=== PATIENT | female | born 1940 | race Caucasian/White ===

== ENCOUNTER 2019-05-20 13:40 | Inpatient (IN) | payer MEDICARE ==
[~2019-05-20] VITALS: Ht 167.6 cm; Wt 70.3 kg
--- NOTE | 2019-05-20 17:12 | NUR ---
PT ARRIVED TO FLOOR VIA STRETCHER. PT IS DROWSY. TRANSFERED TO BED WITH 4PA AND SLIDE SHEET. PT WITH URINE SMELL. PT THE [place]. 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 PT DISORIENTED T SITUATION. FOLET IN PLACE WITH YELLOW URINE. VITALS TAKEN AND STABLE. 3PA FOR BED BATH PROVIDED WITH CLEAN GOWN AND SHEETS. ORAL CARE PROVIDED. ASSESSMENT COMPLETED. LUNGS CLEAR. TELE # 5 PLACED. GCS OF 13. SISTER AT BEDSIDE. DR ELE TO ROOM TO ASSESS RIGHT KNEE. ORIENTED TO ROOM AND PLAN OF CARE. CALL LIGHT IN REACH. WATER AND BED SIDE SWALLOW EVAL COMPLETED. DENIES FURTHER NEEDS.
[2019-05-20] MEDS ORDERED: ADVIL100 MG (17:54)
--- NOTE | 2019-05-20 19:15 | NUR ---
RECEIVED REPORT FROM ELSY CLIFTON. pt RESTING IN BED WITH SISTER AT BEDSIDE. WHITEBOARD UPDATED. pt THOUGHT SHE NEEDED TO HAVE A BM. PATHOLOGY SECRETARY/TRANSCRIPTIONIST NOTIFIED. CALL LIGHT WITHIN REACH.
--- NOTE | 2019-05-20 20:11 | NUR ---
PT'S IV PUMP WAS BEEPING. SHE HAS VISITORS IN THE ROOM ASSISTING HER WITH EATING CHICKEN NOODLE SOUP. THEY REQUESTED OJ FOR HER, AND DENY FURTHER NEEDS AT THIS TIME. CALL LIGHT IS WITHIN REACH.
--- NOTE | 2019-05-20 22:00 | NUR ---
ASSESSMENT DONE. pt REPOSITIONED. SPEECH GARBLED AT TIMES. LIGHTS OFF FOR COMFORT. CALL LIGHT WITHIN REACH. CURTAIN OPEN TO NURSES STATION.
--- NOTE | 2019-05-21 00:09 | NUR ---
ROUNDED ON pt. RESTING WITH EYES CLOSED, RESPIRATIONS REGULAR AND UNLABORED. CALL LIGHT WITHIN REACH. CURTAIN OPEN TO NURSES STATION.
--- NOTE | 2019-05-21 02:00 | NUR ---
pt RESTING WITH EYES CLOSED. VITALS AND I&O RECORDED. ASSESSMENT DONE. pt STATED "YES" WHEN ASKED IF SHE HAD PAIN BUT WAS NOT ABLE TO INDICATE WHERE OR GIVE A NUMERIC NUMBER. ASKED FOR WATER, UNABLE TO DRINK FROM STRAW. TREMULOUS, WAS ABLE TO DRINK FROM EDGE OF CUP. REPOSITIONED, WINCED WHEN REPOSITIONING. CALL LIGHT WITHIN REACH. CURTAIN OPEN TO NURSES STATION.
--- NOTE | 2019-05-21 04:00 | NUR ---
ROUNDED ON pt. RESTING WITH EYES CLOSED, RESPIRATIONS REGULAR AND UNLABORED. CALL LIGHT WITHIN REACH. CURTAIN OPEN TO NURSES STATION.
--- NOTE | 2019-05-21 06:17 | NUR ---
pt RESTED MOST OF SHIFT. SOARES. USES CAN AT BASELINE, DID NOT GET OUT OF BED. TELE 5 SR, HR=70S. TOLERATED SOUP AND SANDWICH. GARBLED SPEECH. IVF INFUSING. HAS NOT USED CALL LIGHT.
--- NOTE | 2019-05-21 07:20 | NUR ---
REPORT RECEIVED FROM ELSY TOMLINSON. PT RESTING ON LEFT SIDE WITH EYES CLOSED, RESPIRATIONS EVEN AND UNLABORED. BED RAILS UP. CALL LIGHT WITHIN REACH. PT EASILY VIEWIED FROM NURSES STATION.
--- NOTE | 2019-05-21 07:50 | NUR ---
PATIENT RESTING IN BED. RN IN ROOM. PATIENT HANDS AND FACE CLEANED. PATIENT'S BREAKFAST ORDERED. CALL LIGHT WITHIN REACH. NO OTHER NEEDS AT THIS TIME
--- NOTE | 2019-05-21 07:57 | NUR ---
MORNIGN ASSESSMENT AND MEDICATIONS DUE. PT AWAKENS TO VOICE AND LIGHT TOUCH. PT DENIES PAIN AND NAUSEA BUT HAS DIFFICULTY ANSWERING QUESTIONS. GARBLED SPEACH NOTED. FLACC SCORE OF 0. TONGUE DRIFT NOTED TO RIGHT SIDE. LEFT SIDE WEAKER THAN RIGHT SIDE. WOUND TO RIGHT KNEE ASSESSED, 5CM X 5CM BLACKENED AREA NOTED WITH REDNESS EXTENDING 2CM IN PROXIMAL DIRECATION. YELLOW AND RED DRAINAGE NOTED THROUGH NON ADHEANT GAUZE. STRONG ODOR NOTED. NEW GAUZE APPLIED. PT SENSITIVE TO MOVEMENT OF LEG. CONTRACTURES TO BOTH UPPER EXTREMITIES NOTED. PT ORIENTED ONLY TO SELF, FOLLOWING DIRECTIONS, AND SURROUNDINGS. BREAKFAST ORDERED. MORNING CARE DONE BY JEWEL BARGER. PT REPOSITIONED TO BACK WITH HIPS FLOATED. BED RAILS UP. BED ALARM ON. PT EASILY VIEWED FROM NURSES STATION.
--- NOTE | 2019-05-21 09:36 | NUR ---
THIS RN TO ROOM TO CHECK ON PT. PT RESTING IN BED. DENIES PAIN AND NAUSEA. PT REPOSITIONED. TO LEFT SIDE. CALL LIGHT WITHIN REACH. BED ALARM ON.
--- NOTE | 2019-05-21 09:50 | NUR ---
PATIENT RESTING IN BED. VITAL SIGNS AND I&O DONE. CALL LIGHT WITHIN REACH. NO OTHER NEEDS AT THIS TIME
--- NOTE | 2019-05-21 10:17 | NUR ---
PUMP ALARMING, NEW IV FLUID BAG HUNG. PTS SISTERS (GIDEON AND OLIVER) AT BEDSIDE. SISTERS UPDATED ON PTS STATUS AND PLAN OF CARE. PTS FAMILY STATES PT APPEARS TO BE COMFORTABLE AT THIS TIME. SISTERS CONSULTED REGARDING ANY PAST ISSUES WITH FLU VACCINE. GIDEON STATES PT HAS HAD NO ISSUES WITH THE FLU VACCINE IN THE PAST. WILL GIVE FLU VACCINE LATER TODAY. PT RESTING WITH EYES CLOSED. RESPIRATIONS EVEN AND UNLABORED. BED RAILS UP. CALL LIGHT WITHIN REACH. FAMILY AT BEDSIDE. PT EASILY VIEWED FROM NURSES STATION.
--- NOTE | 2019-05-21 11:00 | NUR ---
PHYSICAL THERAPY TO ROOM TO WORK WITH PT. THIS RN ASSISTS WITH PT UP TO STAND. PT NOT ABLE TO BEAR WEIGHT. HEAVY 2PA TO PIVOT. PT UP TO CHAIR AT THIS TIME. PT FREQUENTLY CLOSES EYES DURING INTERVENTIONS, NEEDS REMINDERS TO STAY AWAKE. FAMILY AT BEDSIDE. CALL LIGHT WITHIN REACH. LINEN CHANGE DONE.
--- NOTE | 2019-05-21 11:03 | NUR ---
IN TO SPEAK WITH FAMILY AND COMPLETE CASE MANAGEMENT INITIAL ASSESSMENT. FAMILY REPORTS THAT THEY BELEIVE SHE WILL NEED TO GO TO A REHAB FACILITY RATHER THAN HOME. THEY ARE REQUESTING TO HAVE A MEETING WITH THEM, CASE MANAGEMENT, AND THE DOCTOR.
--- NOTE | 2019-05-21 11:50 | NUR ---
MD UPDATED ON LEFT SIDED WEAKNESS AND TONGUE DRIFT TO RIGHT SIDE. ORDERS TO COMPLETE NIH ASSESSMENT. NIH ASSESSMENT COMPLETED. = 12. ASSESSMENT DONE. PT ORIENTED TO PLACE, PERSON AND SURROUNDINGS. DRESSIN TO RIGHT KNEE SHOWS 5CM AREA OF SHADOWING. PT SUCUESSFUL WITH FEEDING SELF, REACHING AND DRINKING FROM WATER/JUICE CUPS. FLUSH SHOT CONFIRMED WITH MD. QUESTIONARE ANSWERED WITH PT ADN FAMILY. FLU SHOT GIVEN. MD TO BEDSIDE FOR ROUNDS.
--- NOTE | 2019-05-21 12:50 | NUR ---
RECORDS STATE PIV IS A FIELD START. NEW PIV STARTED PER PROTOCOL, BRISK BLOOD RETURN NOTED. FIELD START REMAINS IN PLACE AT THIS TIME FOR EMERGENCY USE, WNL, BLOOD RETURN NOTED. NEW FLUDS STARTED. FANY WALTON'Star PER MD ORDER. DEPENDS IN PLACE. MEDICATIONS GIVEN ORDERED (SEE MAR). PT RESTING IN CHAIR. CALL LIGHT WITHIN REACH. PT EASILY VIEWIED FROM NURSES STATION.
--- NOTE | 2019-05-21 13:27 | NUR ---
DR. LEE TO BEDSIDE. DRESSING REMOVED. WOUND EVALUATED. VERBAL ORDERS TO CONTINUE WITH NONADHEARANT GAUZE AND KERLIX DRESSING CHANGES. NONADERANT GAUZE AND KERLIX REAPPLIED. PT RESTING WITH EYES CLOSED. RESPIRATIONS EVEN AND UNLABORED.
--- NOTE | 2019-05-21 13:45 | NUR ---
PATIENT SITTING UP IN CHAIR. VITAL SIGNS AND I&O DONE. CALL LIGHT WITHIN REACH. NO OTHER NEEDS AT THIS TIME
--- NOTE | 2019-05-21 14:07 | EKG ---
[facility] [address] [place], [place] [address] Signed Normal sinus rhythm Incomplete right bundle branch block Left anterior fascicular block Abnormal ECG No previous ECGs available Confirmed by MARI ESTEVEZ DO ([id number]) on 05/21/2019 2:07:18 PM Electronically Signed By: MARI ESTEVEZ DO 05/21/19 1407 PATIENT NAME: STEVIE DOWLING Electrocardiogram DATE OF : 38 PHYSICIAN: MARI ESTEVEZ DO REPORT #: [id number] REPORT IS CONFIDENTIAL AND NOT TO BE RELEASED WITHOUT AUTHORIZATION
--- NOTE | 2019-05-21 16:27 | NUR ---
PATIENT SITTING UP IN RECLINER. BEDBATH DONE. PATIENT USING A CLEAN GOWN. ONE PERSON ASSISTING. CALL LIGHT WITHIN REACH. NO OTHER NEEDS AT THIS TIME
--- NOTE | 2019-05-21 16:50 | NUR ---
PATIENT SITTING UP IN CHAIR. PATIENT TRANSFERRED TO BED. PATIENT USES A CHARLIE. TWO PERSON ASSISTING. ATTENDS CHANGED. WARM BLANKET PROVIDED. VITAL SIGNS AND I&O DONE. CALL LIGHT WITHIN REACH. NO OTHER NEEDS AT THIS TIME
--- NOTE | 2019-05-21 17:20 | NUR ---
AFTERNOON ASSESSMENT DUE. CHARLIE LIFT BACK TO BED, BED BATH COMPLETE. SOME AREAS OF UREA BURNED SKIN BREAKING OPEN, SKIN VERY FRAGILE, AREAS REMAIN OPEN TO AIR AT THIS TIME. PTS LEFT ARM SHOWS INCREASED SWELLING. BANDS AROUND ARM ARE TOO TIGHT, BANDS CUT LOOSE, NEW BANDS APPLIED TO RIGHT ARM. MD NOTIFIED OF INCREASED SWELLING. LUNG SOUNDS CLEAR. PT RESTING IN BED. DINNER ORDER PLACED. PT GOING THROUGH HER MAIL. LEFT SIDED DEFICIT CONTINUES TO BE NOTED. PT STATES "THIS ARM (LEFT ARM) IS TOO WEAK." BED RAILS UP. BED ALARM ON. CALL LIGHT WITHIN REACH. PT EASILY VIEWIED FROM NURSES STATION.
--- NOTE | 2019-05-21 17:27 | NUR ---
MD ORDERS TO STOP D5 FLUIDS WHILE POTASSIUM INFUSION FINISHES. D5 STOPPED AT THIS TIME. CALL LIGHT WITHIN REACH. BEDRAILS UP.
--- NOTE | 2019-05-21 18:11 | NUR ---
PT HERE FOR METABOLIC ENCEPHALOPHAY AFTER BEING FOUND DOWN. URIC ACID HERNANDEZ OVER BODY, SOME SKIN BREAKING OPEN. PT ON TELE #5 WITH NSR THIS SHIFT. JOSE DC'D THIS SHIFT, DEPENDS IN PLACE, VOIDING QUANTITY SIFFICIENT. INCREASED EDEMA THIS SHIFT. POTASSIUM INFUSING, IV FLUIDS ON HOLD. NO BANDS TO LEFT ARM. RIGH TKNEE ULCER EVALUATED BY DR. LEE THIS SHIFT. SEE NURSE NOTIFY ORDERS. DRESSING CHAGNED THIS SHIFT. PHYSICAL THERAPY THIS SHIFT. PT UP TO CHAIR, CHARLIE LIFT, UNABEL TO BEAR WEIGHT. NIO FOR CONSTIPATION ORDERED. FLU SHOT GIVEN. PT FEEDING SELF. PT DOES NOT USE CALL LIGHT.
--- NOTE | 2019-05-21 18:34 | NUR ---
IV PUMP CONTINUALLY BEEPING. RFA IV FLUSHES BUT IS POSITIONAL. NEW PIV STARTED PER PROTOCOL IN RIGHT HAND. POTASSIUM FLUIDS INFUSING THROUGH RH PIV. PT RESTING WITH EYES CLOSED. RESPIRATIONS EVEN AND UNLABORED. BED RAILS UP. CALL LIGHT WITHIN REACH. PT EASILY VIEWED FROM NURSES STATION.
--- NOTE | 2019-05-21 19:10 | NUR ---
SHIFT REPORT RECEIVED FROM MONTEZ PÉREZ AT BEDSIDE. PT AWAKE AND RESTING IN BED, VERY [place]. HEARING AIDS IN PLACE. HOB ELEVATED. IV FLUIDS INFUSING, SITE WNL, EASILY FLUSHED WITH 10 MLS NORMAL SALINE. NO ADDITIONAL NEEDS AT THIS TIME, CALL LIGHT IN REACH.
--- NOTE | 2019-05-21 19:20 | NUR ---
CHARGE NURSE REPORT RECEIVED FROM ANGELINA. NO NEEDS AT THIS TIME
--- NOTE | 2019-05-21 20:30 | NUR ---
CLARIFIED FLUID ORDERS WITH DR ESTEVEZ. VERBAL ORDER READ BACK FROM DR ESTEVEZ TO COMPLETE POTASSIUM RIDER THEN SALINE LOCK AND DISCONTINUE D5 MAINTENANCE FLUIDS.
--- NOTE | 2019-05-21 22:00 | NUR ---
ASSESSMENT COMPLETE. PT SALINE LOCKED AT THIS TIME, IV SITE WNL. PT A/O TO SELF AND SOMEWHAT TO SURROUNDINGS, DIFFICULT TO ASSESS PT IS VERY HARD OF HEARING. HELD SCHEDULED SENNA PT RECEIVED FIRST DOSE DURING DAYSHIFT MID AFTERNOON, DISCUSSED WITH LUMBER PRESS OPERATORELSY DAILEY. PT REPOSITIONED IN BED WITH HELP FROM ELSY DAILEY. PILLOW PLACED UNDER LEFT HIP. NONADHERENT PADS APPLIED TO SKIN TEAR TO PT'S LEFT HIP. NONADHERENT PAD AND GAUZE REPLACED AND REDRESSED ON PT'S RIGHT KNEE. NO FURTHER NEEDS, CALL IN REACH.
--- NOTE | 2019-05-22 | NUR ---
PT REPOSITIONED IN BED WITH HELP FROM EDMUNDO CHIN. HIPS FLOATED AT THIS TIME. PT ASSISTED WITH DRINKING WATER, CHAPSTICK IN PLACE. NO ADDITIONAL NEEDS, CALL LIGHT IN REACH.
--- NOTE | 2019-05-22 01:15 | NUR ---
PT SALINE LOCKED, RESTING IN BED. EES CLOSED. RR WNL. NO DISTRESS NOTED, CALL LIGHT IN REACH.
--- NOTE | 2019-05-22 02:30 | NUR ---
ASSESSMENT COMPLETE, NO NEW CHANGES OR CONCERNS. PT A/O TO SELF, PLACE, AND EVENTS PRIOR TO HOSPITALIZATION. PT REPOSITIONED WITH HELP FROM JEWEL SHEN. ATTENDS DRY AT THIS TIME, WILL MONITOR. FRESH WATER AND ORANGE JUICE PROVIDED, PT DRANK A FEW SIPS OF WATER AND APPROX HALF CUP OF ORANGE JUICE. CHAP STICK PROVIDED. NO SHADOWING NOTED TO RIGHT KNEE DRESSING, WILL MONITOR. CALL LIGHT IN REACH, BED ALARM ON FOR SAFETY.
--- NOTE | 2019-05-22 04:30 | NUR ---
PT REPOSITIONED IN BED WITH HELP FROM JEWEL SHEN. PT INCONTINENT OF URINE, TONG CARE COMPLETE, DRY ATTENDS IN PLACE. HOB ELEVATED, JEWEL SHEN IN ROOM TO COLLECT VS. CALL LIGHT IN REACH, BED ALARM ON FOR SAFETY.
--- NOTE | 2019-05-22 04:39 | NUR ---
PT BEDBOUND, REQUIRES CHARLIE LIFT. PT VERY [place], DIFFICULT TO ASSESS ORIENTATION AT TIMES. HAD A GOOD NIGHT OVERALL, DENIED PAIN ALL SHIFT. Q2H TURN. REGULAR DIET, TOLERATING WELL. NO NAUSEA REPORTED. PT INCONTINENT, NO BM THIS SHIFT. SALINE LOCKED, IV SITES X2 WNL. BILATERAL HEEL PROTECTORS IN PLACE.
--- NOTE | 2019-05-22 07:30 | NUR ---
PATIENT RESTING IN BED. PATIENT TRANSFERRED TO CHAIR. PATIENT USES CHARLIE. TWO PERSON ASSISTING. HANDS AND FACE CLEANED. LINENS CHANGED. CALL LIGHT WITHIN REACH. PATIENT'S BREAKFAST ORDERED. NO OTHER NEEDS AT THIS TIME
--- NOTE | 2019-05-22 07:41 | NUR ---
CALL FROM LAB FOR A POSITIVE BLOOD CULTURE. CHARGE NURSE AND PRIMARY NURSE NOTIFIED.
--- NOTE | 2019-05-22 08:23 | NUR ---
PT CURRENTLY SITTIN UP IN RECLINER WATCHING TV. WAS ASSISTED TO RECLINER VIA CHARLIE. PT VERY [place] BUT ALERT AND ORIENTED TO ALL. CAN BE FORGETFUL BUT EASILY REORIENTED. SPEECH SLIGHTLY SLURRED BUT COMPREHENSIBLE. PT DENIES PAIN OR OTHER CONCERNS AT THIS TIME. NOTED LEFT SIDE SLIGHTLY WEAKER THAN RIGHT. DRESSING TO RIGHT KNEE CDI. REDDENEND SKIN NOTED ON BILAT LEGS AND ABD, SCATTERE BRUISES AND SKIN TEARS. SUPERFICIAL SKIN TEAR WITH BRUISING TO LEFT CHEEK. BOTH IV SITES INTACT, FLUSHED EASILY. CALL LIGHT WITHIN REACH.
--- NOTE | 2019-05-22 09:50 | NUR ---
PATIENT SITTING UP IN CHAIR. VITAL SIGNS AND I&O DONE. CALL LIGHT WITHIN REACH. NO OTHER NEEDS AT THIS TIME
--- NOTE | 2019-05-22 10:13 | CONS ---
[facility] [address], [place] [address] Signed DATE OF CONSULTATION: 05/21/2019 PROBLEM: Pressure sore of right anteromedial knee area. HISTORY OF PRESENT ILLNESS: This 78-year-old white woman was found down in her home and transferred to the emergency room yesterday, May 20, 2019, where she was evaluated by Dr. Carey and subsequently admitted by Dr. Ho. The source of her being found down was uncertain. She did not sound like she had a TIA or anything of that sort, but she was down for a prolonged period. The patient has some level of dementia, though she does live alone and generally highly functional. She has several family members including a sister locally, who checks in on her. She was found to be down on the floor actually in her own urine and therefore uncertain how long she was actually down. She was not found to have any sign of intoxication. She did have mild rhabdomyolysis, which is improving with hydration. I briefly saw her yesterday at the behest of Dr. Ho regarding a knee wound considered likely a decubitus related to this event. She showed no sign of erythema of the wound elsewhere and more formal evaluation is undertaken today. Though the patient is hard of hearing, she does understand what I say and is able to answer questions reasonably well at this point. She is not having any pain in the site of her right knee. She has other areas that had some pressure, but without sign of soft tissue loss or anything of that sort. PAST MEDICAL HISTORY: Surprisingly unremarkable. She is under consideration for Parkinson disease and was trialed on Sinemet, which she did not tolerate. The patient has had slow progressive decline and less and less ability to manage her own day-to-day affairs. She does have significant difficulty hearing. Of note, in her evaluation of chest x-ray, cervical spine CT scan, head CT, and x-ray of pelvis, and shoulder x-ray on the right side all showed no clear evidence of trauma or sign of acute injury particularly. She had degenerative disk disease and spondylosis on cervical spine evaluation and chest x-ray showed no sign of rib fractures or pneumothorax or anything of that sort. At present, the patient does not have discomfort she says. She does not feel short of breath. She does describe that she has had some leg swelling, which she thinks is better today. PHYSICAL EXAMINATION: Electronically Signed By: DENISSE LEE MD 05/22/19 1013 PATIENT NAME: STEVIE DOWLING CONSULTATION DATE OF : 38 REPORT #: [id number] PHYSICIAN: DENISSE LEE MD PCP: MELE BRENNAN MD REPORT IS CONFIDENTIAL AND NOT TO BE RELEASED WITHOUT AUTHORIZATION [facility] [address], [place] [address] Signed GENERAL: A pleasant white woman who is sitting semi-upright in a hospital chair. Her legs are somewhat elevated. She is alert and oriented, and though somewhat hard of hearing, is reasonably lucid and answers questions appropriately. Some level of dementia is apparent just in conversation however. Her trachea is midline. She has no shortness of breath. There is no jugular venous distention. CHEST: Clear bilaterally. HEART: Regular. I detect no murmur. ABDOMEN: Nondistended and nontender. EXTREMITIES: Examination of her right leg shows in the anteromedial aspect, a 4 cm relatively dry eschar without sign of surrounding erythema. There is re-epithelialization on the edges of this area. There is no sign of bogginess. No crepitus. No sign of active infection. She does not have pitting edema. LAB STUDIES: Were reviewed from yesterday and today. Lab studies of pertinence showed improved white count of 9.3 from 13.8, hematocrit of 37, down from 46.1, no doubt delusional following rehydration. Sedimentation rate of 20. Her Chem profile today is notable for a phosphorus of 1.6. Creatine kinase yesterday was 478, not yet obtained today apparently. Tox screen was negative. Urinalysis showed 5 white cells per high-power field. Coag studies were normal including INR of 1.0. An ABG obtained at admission was in fact likely a venous gas. ASSESSMENT: The wound of her right knee shows no sign of infection. It is of uncertain thickness, very probably deep partial-thickness and to a less extent possibly full-thickness. My initial impression was it would likely require debridement and a skin graft, but assessment today shows it to be the possibility that it may reepithelialize underneath the eschar. For general infirmity and acute illness recently tempers one's enthusiasm for excessive aggressive debridement and skin grafting at this moment, but it may still be required in time. For now, I have instructed nurse to maintain a sterile gauze type dressing to the area. We will assess its progress. If debridement and grafting are necessary, can be undertaken without problem. Repletion of her phosphate will certainly be indicated and handled by her logging tractor operator, Dr. Ho. As regard to her underlying etiology of a fall, for which she did not get up causing thus a pressure ulcer of her right knee is still under evaluation. It appears not to have been an acute cerebrovascular or cardiovascular etiology nor that of toxicity to Electronically Signed By: DENISSE LEE MD 05/22/19 1013 PATIENT NAME: STEVIE DOWLING CONSULTATION DATE OF : 38 REPORT #: [id number] PHYSICIAN: DENISSE LEE MD PCP: MELE BRENNAN MD REPORT IS CONFIDENTIAL AND NOT TO BE RELEASED WITHOUT AUTHORIZATION [address] [place], [place] [address] Signed any particular substance. She may simply be getting old enough and with some amount of dementia that such a simple fall was not easily tolerated and she was unable to be made upright on her own. I am sure that assistance or more intensive surveillance of her outpatient situation will be considered by Dr. Ho as well. MD SUZETTE Gonzalez/KEELY /[id number] cc: MD Mele Ruiz MD Copies: MARI HO JONATHAN MD ~ Electronically Signed By: DENISSE LEE MD 05/22/19 1013 PATIENT NAME: STEVIE DOWLING CONSULTATION DATE OF : 38 REPORT #: [id number] PHYSICIAN: DENISSE ELE MD PCP: MELE BRENNAN MD REPORT IS CONFIDENTIAL AND NOT TO BE RELEASED WITHOUT AUTHORIZATION
--- NOTE | 2019-05-22 10:33 | NUR ---
PT APPEARS TO BE SLEEPING IN RECLINER. AWAKENS EASILY TO GENTLY TOUCH. IV ABX STARTED, INFUSING WNL. CALL LIGHT WITHIN REACH.
--- NOTE | 2019-05-22 11:58 | NUR ---
PT WORKING WITH Janie
--- NOTE | 2019-05-22 12:32 | NUR ---
PT ASSISTED TO COMMODE VIA CHARLIE AND 3PA WITH Janie, LOKI HOLLOWAY, AND ERNESTINA HOLLOWAY. PT SITTING AT EDGE OF BED WITH ASSISTANCE WHEN THIS RN ENTERED ROOM. COPY CHASER STAFF REPORTS JUSTINE BLOOD, THIS RN NOTES A FEW DROPS OF JUSTINE BLOOD IN COMMODE. ONCE PT LYING ON BACK IN BED DIGITAL RECTAL EXAM COMPLETED. NO OBVIOUS HEMORROIDS NOTED BUT VERY LARGE IMPACTED STOOL IN RECTUM AND SMALL AMOUNT OF JUSTINE RED BLOOD. PT ASSISTED TO POSITION OF COMFORT. RIGHT KNEE DRESSING WITH MODERATE AMOUNT OF SEROSANGUINOUS DRAINAGE. DRESSING CHANGED AT THIS TIME, REDRESSED WITH NON ADHERANT PAD AND KERLEX GAUZE. NOTIFIED DR. ESTEVEZ OF BLOOD AND IMPACTED STOOL. RECIEVED ORDER FOR SUPPOSITORY. PT CURRENTLY SITTING UP IN BED EATING LUNCH. CALL LIGHT WITHIN REACH.
--- NOTE | 2019-05-22 13:26 | NUR ---
PATIENT RESTING IN BED. VITAL SIGNS AND I&O DONE. CALL LIGHT WITHIN REACH. NO OTHER NEEDS AT THIS TIME
--- NOTE | 2019-05-22 14:35 | NUR ---
ATTENDS CHANGE AND PT REPOSITIONED. DENIES NEEDS OR CONCERNS AT THIS TIME CALL LIGHT WITHIN REACH.
--- NOTE | 2019-05-22 16:15 | NUR ---
ATTENDS CHANGED. PT REPOSITIONED. FAMILY AT BEDSIDE. CALL LIGHT WITHIN REACH.
--- NOTE | 2019-05-22 16:40 | NUR ---
PATIENT RESTING IN BED. ATTEND CHANGED. PATIENT REPOSITIONED. TWO PERSON ASSISTING. CALL LIGHT WITHIN REACH. NO OTHER NEEDS AT THIS TIME
--- NOTE | 2019-05-22 18:14 | NUR ---
PATIENT SITTING UP IN BED. VITAL SIGNS AND I&O DONE. CALL LIGHT WITHIN REACH. NO OTHER NEEDS AT THIS TIME
--- NOTE | 2019-05-22 18:45 | NUR ---
PT ATE MOST OF DINNER, LEANDRA WELL. REFUSED TO GET UP TO COMMODE AT THIS TIME TO ATTEMPT BM. REPOSITIONED AND ATTENDS CHANGED. CALL LIGHT WITHIN REACH.
--- NOTE | 2019-05-22 19:15 | NUR ---
SHIFT REPORT RECEIVED FROM DAYSHIFT ELSY CHOU AT BEDSIDE. PT AWAKE AND RESTING IN BED, HOB ELEVATED. PT VERY [place] AND FIXATED ON HER CONSTIPATION. PT STATING, "CAN I HAVE A LAXATIVE, IT HURTS DOWN THERE". ATTEMPTED TO DISCUSS POC WITH PT ALONG WITH SCHEDULED STOOL SOFTENER WITH EVENING MEDS. NO ADDITIONAL NEEDS, CALL LIGHT IN REACH. BED ALARM ON FOR SAFETY. PT ALSO REPOSITIONED IN BED WITH HELP FROM ELSY CHOU.
--- NOTE | 2019-05-22 21:10 | NUR ---
ROUNDED CHARGE. ASSISTED WITH PATIENT CARE. PATIENTS ATTEND CHANGED. PATIENT DENIES ANY COMMENTS, QUESTIONS OR CONCERNS. NO NEEDS NOTED. CALL LIGHT IN REACH.
--- NOTE | 2019-05-22 21:50 | NUR ---
ASSESSMENT COMPLETE, VSS. PT ON RA. PT REPOSITONED IN BED, SMALL LIQUID SMEAR LIKE BM NOTED, TONG CARE COMPLETE WITH HELP FROM JEWEL OSORIO. BOWEL TONES ACTIVE, PT DENIES NAUSEA. SCHEDULED SENNA GIVEN (SEE EMAR). DRESSING TO RIGHT KNEE CHANGED BY THIS RN. BLE ELEVATED ON PILLOW. WILL MONITOR BOWEL ACTIVITY. NO FURTHER NEEDS, CALL LIGHT IN REACH. BED ALARM ON FOR SAFETY.
--- NOTE | 2019-05-22 22:02 | NUR ---
THIS INSULATION BOARD HEAD SAW OPERATOR AND PRIMARY NURSE CLEANED AND CHANGED ATTENDS.
--- NOTE | 2019-05-23 00:15 | NUR ---
PT RESTING IN BED, EYES CLOSED. HOB ELEVATED. NO DISTRESS NOTED, RESPIRATIONS EVEN AND UNLABORED. CALL LIGHT IN REACH. BED ALARM ON FOR SAFETY.
--- NOTE | 2019-05-23 00:30 | NUR ---
ASSESSMENT COMPLETE, NO NEW CHANGES OR CONCERNS. PT A/OX4, ON RA. WHEN THIS RN ENTERED ROOM, PT STATES, "[place]" AND ABLE TO RECOGNIZE NURSING STAFF. PT INCONTINENT OF URINE, SMALL SMEAR LIKE BM NOTED. TONG CARE COMPLETED, NEW ATTENDS IN PLACE WITH HELP FROM DEVON HOLLOWAY. PT REPOSITIONED IN BED, HEEL PROTECTORS IN PLACE. FRESH [place]ANJE JUICE PROVIDED, NO OTHER NEEDS. HOB ELEVATED. CALL LIGHT INR EACH. BED ALARM ON FOR SAFETY.
--- NOTE | 2019-05-23 00:51 | NUR ---
CHANGED ATTENDS. PATIENT HAD SMALL LIQUID STOOL.
--- NOTE | 2019-05-23 02:30 | NUR ---
PT REPOSITIONED IN BED, HEEL PROTECTORS OFF AT THIS TIME. HOB ELEVATED. FRESH ORANGE JUICE PROVIDED. NO ADDITIONAL NEEDS, CALL LIGHT IN REACH.
--- NOTE | 2019-05-23 04:11 | NUR ---
CHANGED ATTENDS. PATIENT REPOSITIONED.
--- NOTE | 2019-05-23 05:00 | NUR ---
UPDATED SALES TEAM RECRUITER ON PT'S CONSTIPATION AND DISCUSSED OPTIONS. PT HAS HAD TWO-THREE VERY SMALL SMEAR LIKE BM'S. NIO ORDER PLACED FOR FLEET ENEMA. PT TOLERATED PROCEDURE WELL, BUT WAS UNABLE TO HOLD ENEMA IN PLACE. NO BLOOD NOTED AT ANY TIME OF PROCEDURE. PT PLACED ON BEDPAN. ATTEMPTED TO PLACE PT ON BCS WITH HELP FROM SALES TEAM RECRUITER AND JEWEL OSORIO, BUT PT REFUSED, STATING, "THE EXLAX IS THE ONLY THING THAT WORKS FOR ME. LET ME DO IT MY WAY FIRST, THEN I'LL TRY YOUR WAY. I'M TOO TIRED AND DON'T WANT TO GET UP". PT ON BEDPAN, WILL CONTINUE TO MONITOR. CALL LIGHT IN REACH.
--- NOTE | 2019-05-23 05:20 | NUR ---
PT REPOSITIONED IN BED, HEEL PROTECTORS IN PLACE. BEDPAN OFF AT THIS TIME, TONG CARE COMPLETED. NO ADDITIONAL NEEDS, CALL LIGHT IN REACH.
--- NOTE | 2019-05-23 05:45 | NUR ---
PT A/OX4, BUT VERY [place]. VSS THIS SHIFT. PT RECEIVED SUPPOSITORY DURING DAYSHIFT. 2-3 SMEAR LIKE LIQUID BM'S, VERY SMALL. NIO FLEET ENEMA GIVEN AT 0430. PT COMPLAINED OF FEELING CONSTIPATED INTERMITTENTLY THROUGHOUT SHIFT, REFUSED TO TRY AND SIT ON BSC. NO BLOOD NOTED TO RECTAL AREA. INCONTINENT OF URINE. TURN Q2H AND PRN. BED ALARM ON FOR SAFETY.
--- NOTE | 2019-05-23 07:34 | NUR ---
PT IN BED, APPEARS TO BE SLEEPING, RESP EVEN AND NON LABORED. NO DISTRESS NOTED. PERSONAL SUPPLIES AND CALL LIGHT WITHIN REACH.
--- NOTE | 2019-05-23 11:18 | NUR ---
DISCUSSED WITH PT AND THEN WITH PT SISTER GIDEON ABOUT WHERE STEVIE NEEDS TO GO FOR HER SAFETY, SHE STATES "I KNOW I NEED TO GO TO [place] I THINK." I AGREED WITH HER AND TOLD HER SHE WOULD NEED TO GO TO A REHAB AND GET STRONGER. WHEN HER SISTER CAME IN WITH HER NIECE SHE ALSO STATED THAT SHE DOESN'T FEEL IT IS SAFE FOR THE PT TO RETURN HOME BY HERSELF. SHE WOULD LIKE HER TO GO TO A REHAB LIKE [facility]. EXPLAINED THAT [facility] IS THE ONLY PRISON IN [facility] AND THEY AGREED. FAXED CHART NOTES INCLUDING FACE SHEET, ER NOTES AND SUMMARY, H AND P, CONSULT, PROG NOTES, PT, OT AND ST EVAL AND NOTES TO [facility]. RECEIVED A FAX CONFIRMATION. TALKED WITH LILIAM FROM [facility] AND SHE SAID THEY WOULD LOOK AT THEM NOTES AND LET US KNOW.
--- NOTE | 2019-05-23 11:32 | NUR ---
TC TO MED SURG AND SPOKE WITH FRANSISCO RN ABOUT PT. WOUND CONSULT CANCELLED AND DR LEE FOLLOWING PT.
--- NOTE | 2019-05-23 13:05 | NUR ---
ASSISTED DR SHARMA AND ELSY CHOU WITH DISIMPACTION OF PT. TOLERTED FAIRLY WELL AND WAS GRATEFUL AFTER IT AFTER. STATES THAT SHE CAN NOW SIT WITHOUT PAIN AND IT IS WONDERFUL.
--- NOTE | 2019-05-23 13:40 | NUR ---
RECEIVED A PHONE CALL FROM LILIAM AT [facility] STATING THEY ARE STILL WAITING TO HER FOR AUTHORIZATION OF PT FOR A BED THERE. INFORMED DR SHARMA AND NURSE ALFARO OF THIS.
--- NOTE | 2019-05-23 16:12 | NUR ---
PT UP IN SHOWER WITH 2 INSTRUCTIONAL TECHNOLOGY TEACHER, RIGHT MEDICAL KNEE ABRASION RE-DRESSED AT THIS TIME.
--- NOTE | 2019-05-23 17:26 | NUR ---
PT SISTER IN ROOM WITH PT. INFORMED HER OF THE WAIT, AWAITING AUTHORIZATION FROM [facility] FOR INSURANCE. PROBABLY IN THE AM.
--- NOTE | 2019-05-23 18:54 | NUR ---
PATIENT SITTING IN CHAIR EATING DINNER. CALL LIGHT IN REACH. NO FURTHER NEEDS AT THIS TIME.
--- NOTE | 2019-05-23 19:00 | NUR ---
BEDSIDE REPORT RECEIVED FROM ELSY ALFARO. PT UP IN CHAIR EATING DINNER. SL. CALL LIGHT IN LAP. NO REQUESTS AT THIS TIME.
--- NOTE | 2019-05-23 22:11 | NUR ---
PT ASSESSMENT COMPLETE. ALERT AND ORIENTED X 3. HARD OF HEARING. INCONTINENT OF LIQUID STOOL. 3 PERSON ASSIST TO CHARLIE TO BED, GOWN, ATTENDS CHANGED. CALL LIGHT IN LAP. IV SITES SL WNL. PT DENIES PAIN OR VOIDING NEEDS AT THIS TIME.
--- NOTE | 2019-05-23 22:27 | NUR ---
THIS DELICATESSEN CLERK AND PRIMARY RN PATRICE TRANSFERED PATIENT FROM CHAIR TO BED USING CHARLIE. PATIENT WAS CLEANED, HAD BOWEL MOVEMENT.
--- NOTE | 2019-05-23 23:53 | NUR ---
CHECKED ON PT. RESTING IN BED WITH EYES CLOSED, SNORING. BREATHING UNLABORED.
--- NOTE | 2019-05-24 01:24 | NUR ---
PT SLEEPING. AWAKENS TO GENTLE TACTILE STIMULI, HARD OF HEARING. INCONTINENT OF STOOL AND URINE, ATTENDS CHANGED. BARRIER CREAM APPLIED. PT VERY WEAK, DROWSY. REPOSITIONED WITH TWO PERSON ASSIST. CALL LIGHT IN LAP.
--- NOTE | 2019-05-24 01:25 | NUR ---
THIS LEISURE TRAVEL AGENT AND PRIMARY RN CLEANED/CHANGED PATIENT'S ATTENDS. PATIENT HAD LOOSE BOWEL MOVEMENT.
--- NOTE | 2019-05-24 04:09 | NUR ---
PT RESTING IN BED WITH EYES CLOSED. RR 14. BREATHING UNLABORED.
--- NOTE | 2019-05-24 05:43 | NUR ---
PT VERY HARD OF HEARING, ALERT AND ORIENTED X 3. CHARLIE TRANSFER FROM CHAIR TO BED. INCONTINENT OF STOOL AND URINE THROUGHOUT SHIFT. ATTEND IN PLACE. PT VERY WEAK, UNABLE TO ASSIST W TRANSFERS, MOVEMENT. REPOSITIONED IN BED WITH NURSING STAFF MAX ASSIST. RESTED WELL THROUGHOUT SHIFT.
--- NOTE | 2019-05-24 06:15 | NUR ---
PT SLEEPING, AWAKENS TO RNS VOICE, TACTILE STIMULI. INCONTIENT OF STOOL, URINE. ATTENDS CHANGED. BARRIER CREAM APPLIED TO BUTTOCKS, REDNESS NOTED. REPOSITIONED IN BED WITH 2PA. HEEL PROTECTORS IN PLACE. VSS. ORANGE JUICE AND WATER PROVIDED. CALL LIGHT IN LAP.
--- NOTE | 2019-05-24 06:21 | NUR ---
V/S AND I&O TAKEN AND CHARTED. CLEANED/CHANGED INCONTINENT URINE AND BOWEL MOVEMENT AND REPOSITIONED PATIENT.
--- NOTE | 2019-05-24 07:10 | NUR ---
REPORT RECEIVED FROM ELSY W[place]. PT RESTING IN BED. PT AWAKENES TO MOVEMENT IN ROOM. PT REPORTS HUNGER. PT ASSISTED WITH READING MENU. PT DENIES PAIN AT THIS TIME. NO REQUESTS OR COMPLAINTS AT THIS TIME. CALL LIGHT WITHIN REACH. PT EASILY VIEWIED FROM NURSES STATION.
--- NOTE | 2019-05-24 08:34 | NUR ---
MORNING ASSESSMENT AND MEDICATIONS DUE. PT SITTING AT 90 DEGREES IN BED FOR BREAKFAST. PLAN OT GET PT UP TO CHAIR AFTER BREAKFAST. DRESSINGS C/D/I AT THIS TIME. REDNESS NOTED TO LEFT SIDE OF SKIN AND TO TONG AREA. HYERACTIVE BOWEL TONES. SENNA HELP R/T MULTIPLE LOOSE GUY MOVMENTS THROUGHOUT WASTE PAPER HAMMERMILL OPERATOR. INCREASED STRENGTH NOTED TO ARMS TODAY. PT FEEDING SELF, ABLE TO LIFT AND CARTRIDGE LOADER WATER AND OTHER ITEMS. PT UPDATED ON PLAN OF CARE. MEDICATIONS GIVEN. NO ADDITIONAL REQUESTS OR COMPLAINTS AT THIS TIME. CALL LIGHT WITHIN REACH. PT EASILY VIEWED FROM NURSES STATION.
--- NOTE | 2019-05-24 10:23 | NUR ---
PT CALL LIGHT ON. PT STATES "I WANT TO MOVE." 2PA, CHARLIE LIFT UP TO CHAIR. DEPENDS CHANAGED. TONG CARE DONE. BARRIER CREAM APPLIED. PT ASSISTED WITH PLACING LUNCH ORDER. WARM BLANKET PROVIDED. CALL LIGHT WITHIN REACH. PT EASILY VIEWED FROM NURSES STATION.
[2019-05-24] MEDS ORDERED: TYLENOL325 MG PO (12:12)
[2019-05-24] MEDS ORDERED: ONDANSETRON HCL4 MG PO (12:13)
[2019-05-24] MEDS ORDERED: SENNA-TIME S T1 EACH PO (12:13)
--- NOTE | 2019-05-24 12:15 | NUR ---
NOON ASSESSMENT DUE. MD TO BEDSIDE FOR ROUNDS. PT UP TO CHAIR. PT DENIES PAIN AND NAUSEA. WRITING USED TO COMMUNICATE AND OVER COME DIFFICULTIES WITH HEARING. ASSESSMENT DONE. PT FEEDING SELF LUNCH, PT ABLE TO LIFT SPOON TO MOUTH WITH SOUP WITHOUT SPILLING. NO ADDITIONAL REQUESTS OR COMPLAINTS. ANITCIPATING DISCHRAGE TO BRAMWELL. CALL LIGHT WITHIN REACH.
[2019-05-24] MEDS ORDERED: CENTRUM SILVER1 EAC5 PO (12:18)
[2019-05-24] MEDS ORDERED: VITAMIN D1000 UNIT PO (12:18)
--- NOTE | 2019-05-24 14:01 | NUR ---
PATIENT BACK TO BED WITH CHARLIE 2 PERSON ASSIST. ATTENDS CHANGED. BARRIER CREAM APPLIED. REPOSITIONED PATIENT ONTO LEFT SIDE. CALL BUTTON IN REACH. NO OTHER NEEDS AT THIS TIME.
--- NOTE | 2019-05-24 14:33 | NUR ---
THIS RN TO ROOM TO CHECK ON PT. PT BACK IN BED. RESTING WITH EYES CLOSED. RESPIRATIONS EVEN AND UNLABORED. BED RAILS UP. CALL LIGHT WITHIN REACH. PT EASILY VIEWED FROM NURSES STATION.
--- NOTE | 2019-05-24 16:41 | NUR ---
AFTERNOON ASSESSMENT AND MEDICATIONS DUE. CHARLIE LIFT UP TO CHAIR. DEPENDS CHANGED, TONG CARE DONE, BARRIER CREAM APPLIED. ASSESSMETN DONE. PT SHOWS INCREASED STRENGTH IN ARMS. LEG EXERCISES DONE WITH PT. PT CONTINUES PRACTICING LEG MOVEMENTS IN CHAIR STATING "I JUST NEED THESE LEGS TO BE STRONGER." PT REPEATS THE SAME QUSTION AGAIN AND AGAIN "WHAT WILL I WEAR WHEN I GO THERE." PT REASSURED THAT CLOTHES WILL BE PROVIDED WHEN SHE IS TRANSFERED TO [place]. ANSWERS TO QUESTIONS WRITTEN DOWN FOR INCREASED UNDERSTANDING. PT VERBALIZES UNDERSTANDING. PO FLUIDS ENCOURAGED, FRESH ICE WATER PROVIDED. DRESSINGS OVER SKIN WOUNDS C/D/I AT THIS TIME. PT ORIENTED TO ALL. PT WATCHING TV. NO ADDITIONAL REQUESTS OR COMPLAINTS. CALL LIGHT WITHIN REACH. PT EASILY VIEWED FROM NURSES STATION.
--- NOTE | 2019-05-24 18:01 | NUR ---
PT HERE AFTER FALL. CHARLIE LIFT UP TO CHAIR FOR MEALS. PHYSICAL THERAPY THIS SHIFT. DEPENDS IN PLACE FOR INCONTINANCE. VOIDING QUANTITY SUFFICIENT. SWELLING IMPROVING THIS SHIFT. PT EXERCISING LEGS WHILE UP IN CHAIR, INCREASED MOVMENT NOTED. DRESSINGS C/D/I, LEFT IN PLACE THIS SHIFT. PT VERY HARD OF HEARING, WRITING ON PAPER FOR COMMUNICATION. PT USES CALL LIGHT INCONSISTANTLY.
--- NOTE | 2019-05-24 18:50 | NUR ---
THIS RN TO ROOM TO CHECK ON PT. PT STATES "I NEED SOMETHING TO DO." COLORING BOOK AND MARKERS PROVIDED. PT REMAINS UP TO CHAIR. FEET DANGLING. PT SMILING AND VERY CONTENT WITH NEW ACTIVITY. CALL LIGHT WITHIN REACH. PT JOSE VIEWED FROM NURSES STATION.
--- NOTE | 2019-05-24 19:51 | NUR ---
RECIEVED PT REPORT FROM ELISA. PT IN BED WITH FAMILY VISITING. PT DENIES ANY NEEDS AT THIS TIME. CALL LIGHT WITHIN REACH.
--- NOTE | 2019-05-24 21:51 | NUR ---
PATIENT ASSESMENT COMPLETED. PATIENT IS RESTING IN RECLINER. PATIENTS EVENING MEDCIATIONS GIVEN PER ORDER. PATIENT DENIES ANY PAIN. PATIENTS VITALS TAKEN AND RECORDED. PATIENTS INTAKE AND OUPUT RECORDED. PATIENTS ATTEND IS DRY AT THIS TIME. PATIENT WISHEES TO GO TO BED WHEN HER TV PROGRAM IS OVER. NO FURTHER NEEDS NOTED. CALL LIGHT IN REACH.
--- NOTE | 2019-05-24 23:28 | NUR ---
PT MOVED FROM CHAIR TO BED USING THE CEILING CHARLIE. PT ATTENDS CHANGE DUE TO VOID. GOWN CHANGED. BANDAGE CHANGED ON RIGHT KNEE. PT ASKED FOR THE TV TO BE LEFT ON. PT DENIES ANY PAIN. CALL LIGHT WITHIN REACH. BED ALARMS ON. PT DENIES ANY OTHER NEEDS AT THIS TIME.
--- NOTE | 2019-05-25 01:24 | NUR ---
CHANGED INCONTINENT PAD AND REPOSITIONED. ICE WATER REFILLED.
--- NOTE | 2019-05-25 01:30 | NUR ---
PT AWAKE IN ROOM. PT STATES THAT HER BLL ARE HURTING HER. PT COMPLAINS OF 8/10 PAIN. BLL ASSESSED FOR RED OR WARM AREAS AND CHANGES IN GENERALIZED EDEMA. NONE NOTED. PRN TYLENOL GIVEN PER EMAR. PT REPOSITIONED. NO FURTHER NEEDS STATED. BED ALARMS ON FOR SAFETY. BELONGINGS AND CALL LIGHT WITHIN REACH.
--- NOTE | 2019-05-25 02:44 | NUR ---
HEARD PATIENT CALLING. PATIENT C/O CAN NOT GET COMFORTABLE. PATIENT REPOSITIONED.
--- NOTE | 2019-05-25 03:38 | NUR ---
PT AWAKE IN BED, WATCHING TV. PT STATES THAT HER LEGS ARE HURTING AGAIN. REPOSITIONED PT TO SLIGHT LEFT SIDE AND WARM BLANKETS LIGHTLY WRAPPED AROUND BLL. PT ACCEPTED FEET PILLOWS TO BE PUT BACK ON. LOW LIGHT ROOM, BED ALARMS ON FOR SAFETY, BELONGINGS AND CALL LIGHT WITHIN REACH.
--- NOTE | 2019-05-25 04:40 | NUR ---
PT AWAKE IN BED, WATCHING TV. PT STATES THE PAIN IN HER LEGS IS GONE. SHE STATES "I DON'T THINK THEY WILL BE ABLE TO GET ME TO [place] BECAUSE OF THE ROUNDUP." PT APPEARS ANXIOUS ABOUT MOVE. PROVIDED EMOTIONAL SUPPORT AND REASSURED PT THAT STAFF WOULD TAKE CARE OF TRANSPORT AND PT NEEDS. PT REPOSITIONED TO HER RIGHT SIDE. PT ALLOWED FOR THE TV TO BE TURNED OFF AFTER EATING A JELLO. ATTEND CHANGED DUE TO URINE. BED ALARM ON FOR SAFETY. BELONGINGS AND CALL LIGHT IN REACH.
--- NOTE | 2019-05-25 06:01 | NUR ---
PT CALLS FOR NURSE. PT STATES SHE NEEDS TO USE THE COMMODE. PT THEN SAYS THAT IT IS TOO LATE TO USE THE COMMODE. PT INCONTINENT OF URINE AND STOOL. PT PLACED ON BEDPAN FOR SEVERAL MINUTES WITH URINE RESULTS. ATTENDS CHANGED. PT DENIES ANY OTHER NEEDS AT THIS TIME. BED ALARMS ON FOR SAFETY. BELONGINGS AND CALL LIGHT WITHIN REACH.
--- NOTE | 2019-05-25 06:12 | NUR ---
PT STRUGGLED TO REST DURING SHIFT. REGULAR DIET. ROOM AIR. SL X2. INCONTINENT OF URINE AND STOOL. PT HAD SMALL, SOFT BM THIS SHIFT. WORKING WITH PT/OT/ST. [place]ERRA TRANSFER. PRN PAIN MEDICATION GIVEN FOR BLL DISCOMFORT. REPOSISITIONED PRN. ASSINIBOINE AND [place], HEARING AIDS, GLASSES, USES PAPER AND PEN TO COMMUNICATE. MULTIPLE SKIN ISSUES NOTED- SEE ASSESSMENT. RIGHT KNEE DRESSING CHANGED PER ORDER. PT USES CALL LIGHT OCCASSIONALY. BED ALARM ON FOR SAFETY.
--- NOTE | 2019-05-25 09:18 | NUR ---
PT COMPLETE SHOWER WITH MILKA HOLLOWAY WITH PHYSICAL THERAPY IN ROOM WITH THIS RN AND BULLET CASTING OPERATOR TO ATTEMPT PIVOT TRANSFER TO RECLINER. MILKA REPORTS THAT SHE ASSESS THAT PT IS A TWO PERSON HANDS ON ASSIST AT THIS TIME. PT TOLERATED ACTIVITY WELL.
--- NOTE | 2019-05-25 09:25 | NUR ---
PATIENT RESTING IN BED. RN IN ROOM. PATIENT TRANSFERRED TO SHOWER CHAIR. PATIENT USES CHARLIE. TWO PERSON ASSISTING. PATIENT TAKES A SHOWER. PATIENT USING A CLEAN GOWN. PATIENT BACKS TO CHAIR. THREE PERSON ASSISTING. LINENS CHANGED. CALL LIGHT WITHIN REACH. NO OTHER NEEDS AT THIS TIME
--- NOTE | 2019-05-25 09:30 | NUR ---
WOUND REDRESSES TO R KNEE, APPEARS CLEAN, PT DENIES PAIN. TOLERATED WELL.
--- NOTE | 2019-05-25 12:54 | NUR ---
PATIENT SITTING UP IN CHAIR. VITAL SIGNS AND I&O DONE. ORANGE JUICE GIVEN. CALL LIGHT WITHIN REACH. NO OTHER NEEDS AT THIS TIME
--- NOTE | 2019-05-25 13:09 | NUR ---
STAFF INFORMED ME THAT PT IS TO BE TRANSFERRED TO [facility] LATER TODAY. PT OMAHA, HAD TO GET CLOSE TO PT. SO APPARENTLY, SHE DOES NOT LIKE TO WEAR HER HEARING AIDS. CONVERSATION MADE LITTLE SENSE, COGNITIVE ABILITIES IMPARED. WILL FOLLOW PT NEEDED
--- NOTE | 2019-05-25 14:37 | NUR ---
PATIENT SITTING UP IN CHAIR. PATIENT TRANSFERRED TO BED. PATIENT USES CHARLIE. TWO PERSON ASSISTING. CALL LIGHT WITHIN REACH. NO OTHER NEEDS AT THIS TIME
--- NOTE | 2019-05-25 15:23 | NUR ---
RECIEVED AUTHORIZATION FOR ADMISSION TO [facility]. RECIEVED CALL FROM [facility] FOR REPORT ON PT. WAITING FOR TIME FOR TRANSPORTATION TO BE ARRANGED BY [facility].
--- NOTE | 2019-05-25 15:49 | NUR ---
TRANSPORTATION HAS ARRIVED FROM [facility]. TWO PERSON ASSIST FOR PT TO STAND A PIVOT TO . PT IN [facility]. DC AT THIS TIME.
== END 2019-05-25 15:45 | DRG 71 ==
LOC: ED 13:40 → MS 13:41
PROVIDERS: ADMIT Student in an Organized Health Care Education/Training Program
DX: G93.41 Metabolic encephalopathy (principal); E87.0 Hyperosmolality and hypernatremia; M62.82 Rhabdomyolysis; E86.0 Dehydration; K59.00 Constipation, unspecified; H91.90 Unspecified hearing loss, unspecified ear; R29.6 Repeated falls; E83.39 Other disorders of phosphorus metabolism; E55.9 Vitamin D deficiency, unspecified; G20 Parkinson's disease; F02.80 Dementia in other diseases classified elsewhere, unspecified severity, without behavioral disturbance, psychotic disturbance, mood disturbance, and anxiety; M24.522 Contracture, left elbow; M24.521 Contracture, right elbow; L89.899 Pressure ulcer of other site, unspecified stage
CPT/HCPCS: 36415; 70450; 71045; 72125; 72170; 73030; 73552; 80048; 80053; 80061; 81001; 82306; 82550; 82607; 82803; 83036; 83605; 83735; 84100; 84295; 84439; 84443; 84484; 85025; 85610; 85651; 85730; 86038; 86431; 87077; 87088; 87186; 90662; 92523; 93005; 93010; 96360; 96361; 97110; 97163; 97166; 97530; 97535; 99291; J0696; J1650; J7060; J7070; J7120

== ENCOUNTER 2019-06-23 06:35 | Day surgery (SDC) | payer MEDICARE ==
[~2019-06-23 06:35] MED LIST: ADVIL100 MG; CARBIDOPA-LEVO1 EAC9 PO; CENTRUM SILVER1 EAC5 PO; ONDANSETRON HCL4 MG PO; SENNA-TIME S T1 EACH PO; TYLENOL325 MG PO; VITAMIN D1000 UNIT PO
--- NOTE | 2019-06-23 08:36 | NUR ---
06/23/19 0836 CONRAD CARRERA 0836 PATIENT ARRIVED FROM PACU. PATIENT IS NON RESPONSIVE BUT HAS UNLABORED SPONTANEOS BREATHS. PATIENT DOES HAVE AN ORAL AIRWAY IN. PATIETN O2 SAT IS AT 100%. 0835. PATIENT STILL NOT RESPONSIVE AND HAS ORAL AIRWAY IN. O2 SAT IS 100% ON 6L. PATIENT APPEARS TO BE RESTING COMFORTABLY. VITAL SIGNS ARE WITHIN 20% OF PRE-OP
[2019-06-23] MEDS ORDERED: HYDROCODON-ACE1 EA10 PO (08:45)
[2019-06-23] MEDS ORDERED: IBUPROFEN600 MG PO (08:45)
[2019-06-23] MEDS ORDERED: TYLENOL EXTRA500 MG PO (08:46)
--- NOTE | 2019-06-23 09:48 | NUR ---
PT ARRIVES TO DS RM 6 FROM PACU AWAKE AND ALERT, RESP EVEN AND UNLABORED. PT SATS ABOVE 94% ON RA. PT DENIES ANY NAUSEA OR PAIN. PT LOWER LIP REDDENED ON ARRIVAL, PT PROVIDED WARM WASH CLOTH TO WIPE MOUTH PER REQUEST. ENRICO HUGGER PLACED ON WARM. PT PROVIDED ICED WATER AND CRACKERS. CALL LIGHT WITHIN REACH.
--- NOTE | 2019-06-23 10:00 | NUR ---
PT TOLERATES WATER AND CRACKERS WELL. PROVIDED CHOCOLATE PUDDING.
--- NOTE | 2019-06-23 10:25 | NUR ---
PILLOWS APPLIED UNDER PT LEGS TO RELIEVE PRESSURE ON HEELS. PT RESTS IN BED WITH EYES CLOSED, LIGHTS DIMMED.
--- NOTE | 2019-06-23 11:20 | NUR ---
ATTENDS SATURATED WITH URINE, CHANGED BY 2 RNS. PT TURNED ON TO LEFT SIDE AND PILLOW TUCKED UNDER RIGHT HIP. RIGHT SCD REMOVED PER PT REQUEST "TOO CLOSE TO SKIN GRAFT."
--- NOTE | 2019-06-23 12:06 | NUR ---
PT RESTING IN BED WITH EYES CLOSED, RESP EVEN AND UNLABORED. CALL LIGHT WITHIN REACH.
--- NOTE | 2019-06-23 13:00 | NUR ---
[facility] NOTIFIED OF PT DESIRE TO DC. ATTENDS CHANGED WITH 2 RNS. PT DRESSED AND TRANSFERRED TO PERSONAL . DC INSTRUCTIONS GIVEN, PT STATES AN UNDERSTANDING. PT DC VIA [facility] BACK TO [facility].
--- NOTE | 2019-06-23 16:26 | OR ---
[facility] [address], [place] [address] Signed DATE OF OPERATION: 06/23/2019 SURGEON: Denisse Lee MD PREOPERATIVE DIAGNOSIS: Full-thickness skin loss, right knee, 6 x 6 cm, secondary to pressure ulceration. POSTOPERATIVE DIAGNOSIS: Full-thickness skin loss, right knee, 6 x 6 cm, secondary to pressure ulceration. PROCEDURES: 1. Recipient site preparation (debridement and curettage). 2. Split-thickness skin graft application, 0.3 inches, meshed 1 to 1.5, donor site, left thigh; recipient site, right knee. ANESTHESIA: General LMA; Denisse Hassan CRNA. INDICATION: This 78-year-old white woman is very hard of hearing and has some amount of dementia. She was found down in her home having laid in her bathroom for many hours and sustained a pressure injury to her soft tissue of her right knee. About a week ago or so, she had been brought to the operating room for excision and grafting, but the site was necrotic and appeared possibly infected and, therefore, not amenable to grafting at that time. She did undergo full-thickness debridement at that time. A SNaP negative pressure wound device was applied and has been in place for nearly a week. She is here today to undergo debridement as necessary and application of skin graft if appropriate. The risks of bleeding, infection, graft failure, and other unforeseen complications were reviewed with her to the degree she can. She understands well and wished to proceed. FINDINGS: The site with the SNaP wound VAC type device was granulating quite nicely except in the central portion where there was still a bit of tissue requiring debridement. It was certainly not infected nor foul smelling. Debridement was undertaken with a Banjo curette with good effect. Application of the skin graft to the site with the donor site being the contralateral limb (left thigh) was accomplished without problem. A meshed graft 1 to 1.5 was Electronically Signed By: DENISSE LEE MD 06/23/19 1626 PATIENT NAME: STEVIE DOWLING OPERATIVE REPORT DATE OF : 38 REPORT #: [id number] PHYSICIAN: DENISSE LEE MD PCP: MELE BRENNAN MD REPORT IS CONFIDENTIAL AND NOT TO BE RELEASED WITHOUT AUTHORIZATION [facility] [address], [place] [address] Signed applied. There were no complications. The grafted site was 6 x 6 cm (36 sq cm). DESCRIPTION OF PROCEDURE: The patient was brought to the operating room and given a general anesthetic. Preoperative antibiotic Ancef was given. A sequential compression device was applied to both ankles. The left thigh and the right knee area were prepared with a Betadine-based solution and draped sterilely. Photographs were taken. Removal of the wound VAC device prior to preparation was undertaken by myself. The wound had good granulation in much of it and some parts required a bit of debridement with a Banjo curette. This was accomplished without problem, without excessive bleeding. Epinephrine-soaked saline was applied to the site. In the left thigh area, a suitable site for graft donation was designated. Mineral oil was applied to the area and a Fabrice-type dermatome was used to harvest the skin at 0.3 inches in depth. The donor site had bleeding as expected and epinephrine-saline solution applied to the donor site. The skin was ran through the mesher device in a 1 to 1.5 ratio and applied to the recipient site. It was secured ultimately with 4-0 Vicryl suture. Additional graft was required and additional skin harvested in the same way near the same site, meshed in the same way and applied. The graft was secured totally with 4-0 Vicryl suture. Photographs were taken. Nonadherent Adaptic dressing was applied to the recipient site, as were some fluff gauze, a Kerlix wrap, and ultimately an Ronny wrap. The donor site was managed by application of a Mepilex silver sponge dressing-type device. An OpSite was applied as well. The patient was allowed to emerge from sedation and taken to recovery room in good condition having suffered no complication. Sponge, needle, and instrument counts were reported as correct x3. Blood loss was minimal. MD SUZETTE Gonzalez/MODL /[id number] cc: Alen Mackey MD Electronically Signed By: DENISSE LEE MD 06/23/19 1626 PATIENT NAME: STEVIE DOWLING OPERATIVE REPORT DATE OF : 38 REPORT #: [id number] PHYSICIAN: DENISSE LEE MD PCP: MELE BRENNAN MD REPORT IS CONFIDENTIAL AND NOT TO BE RELEASED WITHOUT AUTHORIZATION [address] [address] Signed Say Ho MD Copies: ALEN MACKEY DMD, BRIAN DO ~ Electronically Signed By: DENISSE LEE MD 06/23/19 1626 PATIENT NAME: STEVIE DOWLING OPERATIVE REPORT DATE OF : 38 REPORT #: [id number] PHYSICIAN: DENISSE LEE MD PCP: MELE BRENNAN MD REPORT IS CONFIDENTIAL AND NOT TO BE RELEASED WITHOUT AUTHORIZATION
== END 2019-06-23 13:30 ==
LOC: OPS 06:35 → DS 06:35 → OPS 06:45
PROVIDERS: Surgery
PROC: 0HRKX74 Replacement of Right Lower Leg Skin with Autologous Tissue Substitute, Partial Thickness, External Approach (ICD-10-PCS; principal; 2019-06-23 06:45)
DX: L89.899 Pressure ulcer of other site, unspecified stage (principal); G20 Parkinson's disease; F03.90 Unspecified dementia, unspecified severity, without behavioral disturbance, psychotic disturbance, mood disturbance, and anxiety; H91.93 Unspecified hearing loss, bilateral; Z79.899 Other long term (current) drug therapy; Z87.891 Personal history of nicotine dependence
CPT/HCPCS: J0171; J0690; J1100; J1644; J1885; J2405; J2704; J2765; J3010; J7120

== ENCOUNTER 2019-07-14 10:30 | Emergency (ER) | payer MEDICARE ==
[~2019-07-14] VITALS: Ht 167.6 cm; Wt 62.4 kg
--- OUTSIDE RECORDS SUMMARY | ~2019-07-14 | XMS | Encounter Summary ---
Demographics + + + | Address | [address] | | | [place] [address] | + + + | Home Phone | | + + + | Preferred Language | Unknown | + + + | Marital Status | Single | + + + | Pentecostalism Affiliation | Unknown | + + + | Race | Unknown | + + + | Ethnic Group | Unknown | + + + Author + + + | Author | [facility] (Historical as of | | | 04-30-19) | + + + | Organization | [facility] (Historical as of | | | 04-30-19) | + + + | Address | Unknown | + + + | Phone | Unavailable | + + + Care Team Providers + +------+ + | Care Credit Reporting Clerk Name | Role | Phone | + +------+ + PCP | Unavailable | + +------+ + Encounter Details +--------+ + + + + | Date | Type | Department | Care Team | Description | +--------+ + + + + | 04/27/ | Documentati | [facility] | Barbi Sanches, | | | 2019 | on Only | [facility] | MD Michael Askew | | | | | [address] | [address] [facility] [place] | | | | | [place], [place] | [address] | | | | | [address] | | | | | | [phone] | | | +--------+ + + + [...] on file | | + + + as of this encounter Plan of Treatment Not on fileas of this encounter Visit Diagnoses Not on filein this encounter"
--- OUTSIDE RECORDS SUMMARY | ~2019-07-14 | XMS | Encounter Summary ---
Demographics + + + | Address | [address] | | | [place] [address] | + + + | Home Phone | | + + + | Preferred Language | Unknown | + + + | Marital Status | Unknown | + + + | Temple Affiliation | Unknown | + + + | Race | Unknown | + + + | Ethnic Group | Unknown | + + + Author + + + | Author | [facility] | | | and [place] | + + + | Organization | [facility] | | | and [place] | + + + | Address | Unknown | + + + | Phone | Unavailable | + + + Care Team Providers + +------+ + | Care Wig Comber Name | Role | Phone | + +------+ + PCP | Unavailable | + +------+ + Reason for Visit +--------+ + | Reason | Comments | +--------+ + | Other | [facility] family medicine chart notes and referral | +--------+ + Encounter Details +--------+ + + + + | Date | Type | Department | Care Team | Description | +--------+ + + + + | 05/10/ | Telephone | [facility] | Frank Pacheco, | Other (Amanda | | 2019 | | NEUROLOGY [address] | family medicine | | | | [place] | [employer]keeper [employer]orer | chart notes and | | | | [place] | | referral ) | | | | [address] | | | | | | [phone] | | | +--------+ + + + [...] on file | | + + + + + + + | Job Start Date | Occupation | Industry | + + + + | Not on file | Not on file | Not on file | + + + + + + + + | Travel History | Travel Start | Travel End | + + + + + + | No recent travel history available. | + + documented as of this encounter Plan of Treatment +--------+---------+ + + + | Date | Type | Specialty | Care Team | Description | +--------+---------+ + + + | 10/18/ | Office | Neurology | Barbi Sanches, | | | 2019 | Visit | | MD Michael LOBATO | | | | | | [address] | | | | | | [place] [address] | | | | | | [phone] | | | | | | | | +--------+---------+ + + + documented as of this encounter Visit Diagnoses Not on filedocumented in this encounter"
--- OUTSIDE RECORDS SUMMARY | ~2019-07-14 | XMS | Encounter Summary ---
Demographics + + + | Address | [address] | | | [place] [address] | + + + | Home Phone | | + + + | Preferred Language | Unknown | + + + | Marital Status | Single | + + + | Hoahaoism Affiliation | Unknown | + + + | Race | Unknown | + + + | Ethnic Group | Unknown | + + + Author + + + | Author | [facility] (Historical as of | | | 04-30-19) | + + + | Organization | [facility] (Historical as of | | | 04-30-19) | + + + | Address | Unknown | + + + | Phone | Unavailable | + + + Care Team Providers + +------+ + | Care Timber Grader Name | Role | Phone | + +------+ + PCP | Unavailable | + +------+ + Encounter Details +--------+ + + + + | Date | Type | Department | Care Team | Description | +--------+ + + + + | 04/27/ | Documentati | [facility] | Barbi Sanches, | | | 2019 | on Only | [facility] | MD Michael Askew | | | | | [address] | [address] [facility] [place] | | | | | [place], [place] | [address] | | | | | [address] | | | | | | [phone] | | | +--------+ + + + [...]
--- OUTSIDE RECORDS SUMMARY | ~2019-07-14 | XMS | Encounter Summary ---
Demographics + + + | Address | [address] | | | [place] [address] | + + + | Home Phone | | + + + | Preferred Language | Unknown | + + + | Marital Status | Single | + + + | Jain Affiliation | Unknown | + + + | Race | Unknown | + + + | Ethnic Group | Unknown | + + + Author + + + | Author | [facility] (Historical as of | | | 04-30-19) | + + + | Organization | [facility] (Historical as of | | | 04-30-19) | + + + | Address | Unknown | + + + | Phone | Unavailable | + + + Care Team Providers + +------+ + | Care Stranding Supervisor Name | Role | Phone | + +------+ + PCP | Unavailable | + +------+ + Reason for Visit + + + | Reason | Comments | + + + | Referral | | + + + Encounter Details +--------+ + + + + | Date | Type | Department | Care Team | Description | +--------+ + + + + | 04/28/ | Telephone | [facility] | Barbi Sanches, | Referral | | 2019 | | Neuroscience Center | [address] | | | | | [address] | [place], [place] | | | | | [place], [place] | [address] | | | | | [address] | | | | | | [phone] | | | +--------+ + + + [...]
--- OUTSIDE RECORDS SUMMARY | ~2019-07-14 | XMS | Clinical Summary ---
Demographics + + + | Address | [address] | | | [place] [address] | + + + | Home Phone | | + + + | Preferred Language | Unknown | + + + | Marital Status | Single | + + + | Anglican Affiliation | Unknown | + + + | Race | Unknown | + + + | Ethnic Group | Unknown | + + + Author + + + | Author | [facility] (Historical as of | | | 04-30-19) | + + + | Organization | [facility] (Historical as of | | | 04-30-19) | + + + | Address | Unknown | + + + | Phone | Unavailable | + + + Care Team Providers + +------+ + | Care Finance Associate Name | Role | Phone | + +------+ + PP | Unavailable | + +------+ + Allergies Not on File Current Medications Not on file Active Problems Not on file Encounters +--------+ + + + + | Date | Type | Specialty | Care Team | Description | +--------+ + + + + | 04/28/ | Telephone | | Barbi Sanches, | Referral | | 2018 | | | MD | | +--------+ + + + + | 04/27/ | Documentati | | Barbi Sanches, | | | 2018 | on Only | | MD | | +--------+ + + + + | 04/27/ | Care | | Barbi Sanches, | | | 2018 | Coordinatio | | MD | | | | n | | | | +--------+ + + + [...] on file | | + + + Plan of Treatment + + + + + | Health Maintenance | Due Date | Last Done | Comments | + + + + + | Vaccine: | | | | | Dtap/Tdap/Td (1 - | 9 | | | | Tdap) | | | | + + + + + | Vaccine: Zoster (1 | | | | | of 2) | 0 | | | + + + + + | DEXA SCAN SCREENING | | | | | | 5 | | | + + + + + | Vaccine: | | | | | Pneumococcal 65+ | 5 | | | | Low/Medium Risk (1 | | | | | of 2 - PCV13) | | | | + + + + + | Vaccine: Influenza | | | | | (#1) | 9 | | | + + + + + Results Not on filefrom Last 3 Months Insurance +-------+--------+ +------+-------+---------+ | Payer | Benefi | Subscriber | Type | Phone | Address | | | t Plan | ID | | | | | | / | | | | | | | Group | | | | | +-------+--------+ +------+-------+---------+ | AETNA | AETNA | [id number] | | | | | | GENERI | | | | | | | C | | | | | +-------+--------+ +------+-------+---------+ + +--------+ +--------+ + + | Guarantor Name | Accoun | Relation to | Date | Phone | Billing Address | | | t Type | Patient | of | | | | | | | | | | + +--------+ +--------+ + + | STEVIE DOWLING | Person | Self | [birth year] | Home: | [address] | | | al/Fam | | 1941 | [phone] [place] [place] | | | eduardo | | | [phone] | [phone] | + +--------+ +--------+ + +"
--- OUTSIDE RECORDS SUMMARY | ~2019-07-14 | XMS | Clinical Summary ---
Demographics + + + | Address | [address] | | | [place] [address] | + + + | Home Phone | | + + + | Preferred Language | Unknown | + + + | Marital Status | Unknown | + + + | Hinduism Affiliation | Unknown | + + + | Race | Unknown | + + + | Ethnic Group | Unknown | + + + Author + + + | Author | [facility] | | | and Todd | + + + | Organization | [facility] | | | and [place] | + + + | Address | Unknown | + + + | Phone | Unavailable | + + + Care Team Providers + +------+ + | Care Fire Alarm Repairer Name | Role | Phone | + +------+ + PCP | Unavailable | + +------+ + Allergies Not on File Medications Not on file Active Problems Not on file Encounters +--------+ + + + + | Date | Type | Specialty | Care Team | Description | +--------+ + + + + | 06/02/ | Telephone | Neurology | Barbi Sanches, | Referral | | 2018 | | | MD | | +--------+ + + + + | 05/10/ | Telephone | Neurology | Frank Pacheco, | Salvador Bravo | | 2018 | | | [place] | family medicine | | | | | Accounts Officer | chart notes and | | | | | | referral ) | +--------+ + + + + from [...] recent travel history available. | + + Last Filed Vital Signs Not on file Plan of Treatment +--------+---------+ + + + | Date | Type | Specialty | Care Team | Description | +--------+---------+ + + + | 10/18/ | Office | Neurology | Barbi Sanches, | | | 2019 | Visit | | MD Michael LOBATO | | | | | | [address] | | | | | | [place] [address] | | | | | | [phone] | | | | | | | | +--------+---------+ + + + + + + + + | Health [...] | + + + + + | Breast Cancer | | | | | Screening | 5 | | | + + + + + | Vaccine: | | | | | Pneumococcal 65+ | 5 | | | | Low/Medium Risk (1 | | | | | of 2 - PCV13) | | | | + + + + + | Adult Annual | | | [...] +--------+-------+---------+--------+ | AETNA MEDICARE | AETNA | [id number] | 09/14/19 | | | Medica | [...] Person | Self | [birth year] | | [address] | | | [address] | | 1941 | [phone] | [place], | | | [place] | | | 2 (Home) | [place] [address] | + +--------+ +--------+ + + Advance Directives Patient has advance care planning documents on file. For more information, please contact:[facility] [place] [address]"
--- OUTSIDE RECORDS SUMMARY | ~2019-07-14 | XMS | Encounter Summary ---
Demographics + + + | Address | [address] | | | [place] [address] | + + + | Home Phone | | + + + | Preferred Language | Unknown | + + + | Marital Status | Single | + + + | Restoration Affiliation | Unknown | + + + | Race | Unknown | + + + | Ethnic Group | Unknown | + + + Author + + + | Author | [facility] (Historical as of | | | 04-30-19) | + + + | Organization | [facility] (Historical as of | | | 04-30-19) | + + + | Address | Unknown | + + + | Phone | Unavailable | + + + Care Team Providers + +------+ + | Care Lead Sustainability Specialist Name | Role | Phone | + +------+ + PCP | Unavailable | + +------+ + Encounter Details +--------+ + + + + | Date | Type | Department | Care Team | Description | +--------+ + + + + | 04/27/ | Care | [facility] | Barbi Sanches, | | | 2019 | Coordinatio | Neuroscience Center | MD Michael Askew | | | | n | [address] | [address] [facility] | | | | | [place], [place] | [address] | | | | | [address] | | | | | | [phone] | | | +--------+ + + + [...]
--- OUTSIDE RECORDS SUMMARY | ~2019-07-14 | XMS | Encounter Summary ---
Demographics + + + | Address | [address] | | | [place] [address] | + + + | Home Phone | | + + + | Preferred Language | Unknown | + + + | Marital Status | Single | + + + | Pentecostalism Affiliation | Unknown | + + + | Race | Unknown | + + + | Ethnic Group | Unknown | + + + Author + + + | Author | [facility] (Historical as of | | | 04-30-19) | + + + | Organization | [facility] (Historical as of | | | 04-30-19) | + + + | Address | Unknown | + + + | Phone | Unavailable | + + + Care Team Providers + +------+ + | Care Behavioral Health Worker Name | Role | Phone | + +------+ + PCP | Unavailable | + +------+ + Encounter Details +--------+ + + + + | Date | Type | Department | Care Team | Description | +--------+ + + + + | 04/27/ | Care | [facility] | Barbi Sanches, | | | 2019 | Coordinatio | Neuroscience Center | MD Michael Askew | | | | n | [address] | [address] [facility] | | | | | [place], [place] | [address] | | | | | [address] | | | | | | [phone] | | | +--------+ + + + [...]
--- OUTSIDE RECORDS SUMMARY | ~2019-07-14 | XMS | Encounter Summary ---
Demographics + + + | Address | [address] | | | [place] [address] | + + + | Home Phone | | + + + | Preferred Language | Unknown | + + + | Marital Status | Unknown | + + + | Jewish Affiliation | Unknown | + + + | Race | Unknown | + + + | Ethnic Group | Unknown | + + + Author + + + | Author | [facility] | | | and [place] | + + + | Organization | [facility] | | | and [place] | + + + | Address | Unknown | + + + | Phone | Unavailable | + + + Care Team Providers + +------+ + | Care Master Coastal Waters Name | Role | Phone | + [...] + + | 05/10/ | Telephone | [facility] | Frank Pacheco, | Other (Amanda | | 2019 | | NEUROLOGY [address] | [place] | family medicine | | | | [address] | Shop Tailor Apprentice | chart notes and | | | | [place] | | referral ) | | | | [address] | | | | | | [phone] | | | +--------+ + + + [...] | | | | | [place] [address] | | | | | | [phone] | | | | | | | | +--------+---------+ + + + documented as of this encounter Visit Diagnoses Not on filedocumented in this encounter"
--- OUTSIDE RECORDS SUMMARY | ~2019-07-14 | XMS | Encounter Summary ---
Demographics + + + | Address | [address] | | | [place] [address] | + + + | Home Phone | | + + + | Preferred Language | Unknown | + + + | Marital Status | Unknown | + + + | Shinto Affiliation | Unknown | + + + | Race | Unknown | + + + | Ethnic Group | Unknown | + + + Author + + + | Author | [facility] | | | and [place] | + + + | Organization | [facility] | | | and [place] | + + + | Address | Unknown | + + + | Phone | Unavailable | + + + Care Team Providers + +------+ + | Care Lacing Operator Name | Role | Phone | + [...] + + | 06/02/ | Telephone | [facility] | Barbi Sanches, | Referral | | 2019 | | NEUROLOGY [address] | [address] | | | | | [address] | [facility] | | | | | [place], [place] | [place] [address] | | | | | [address] | [phone] | | | | | [phone] | | | +--------+ + + + [...] [place] | | | | | | [place] [address] | | | | | | [phone] | | | | | | | | +--------+---------+ + + + documented as of this encounter Visit Diagnoses Not on filedocumented in this encounter"
--- OUTSIDE RECORDS SUMMARY | ~2019-07-14 | XMS | Clinical Summary ---
Demographics + + + | Address | [address] | | | [place] [address] | + + + | Home Phone | | + + + | Preferred Language | Unknown | + + + | Marital Status | Single | + + + | Presybeterian Affiliation | Unknown | + + + | Race | Unknown | + + + | Ethnic Group | Unknown | + + + Author + + + | Author | [facility] (Historical as of | | | 04-30-19) | + + + | Organization | [facility] (Historical as of | | | 04-30-19) | + + + | Address | Unknown | + + + | Phone | Unavailable | + + + Care Team Providers + +------+ + | Care Environmental Services Manager Name | Role | Phone | [...] +-------+--------+ +------+-------+---------+ | AETNA | AETNA | [id number] | | | | | | GENERI [...] | [place] | | | [address] | [address] | + +--------+ +--------+ + +"
--- OUTSIDE RECORDS SUMMARY | ~2019-07-14 | XMS | Encounter Summary ---
Demographics + + + | Address | [address] | | | [place] [address] | + + + | Home Phone | | + + + | Preferred Language | Unknown | + + + | Marital Status | Single | + + + | Congregational Affiliation | Unknown | + + + | Race | Unknown | + + + | Ethnic Group | Unknown | + + + Author + + + | Author | [facility] (Historical as of | | | 04-30-19) | + + + | Organization | [facility] (Historical as of | | | 04-30-19) | + + + | Address | Unknown | + + + | Phone | Unavailable | + + + Care Team Providers + +------+ + | Care Enrober Tender Name | Role | Phone | + [...] + + | 04/28/ | Telephone | [facility] | Barbi Sanches, | Referral | | 2019 | | Neuroscience Center | [address] | | | | | [address] | [place], [place] | | | | | [place], [place] | [address] | | | | | [address] | | | | | | [phone] | | | +--------+ + + + [...]
--- OUTSIDE RECORDS SUMMARY | ~2019-07-14 | XMS | Encounter Summary ---
Demographics + + + | Address | [address] | | | [place] [address] | + + + | Home Phone | | + + + | Preferred Language | Unknown | + + + | Marital Status | Unknown | + + + | Amish Affiliation | Unknown | + + + | Race | Unknown | + + + | Ethnic Group | Unknown | + + + Author + + + | Author | [facility] | | | and [place] | + + + | Organization | [facility] | | | and [place] | + + + | Address | Unknown | + + + | Phone | Unavailable | + + + Care Team Providers + +------+ + | Care Motion Picture Equipment Supervisor Name | Role | Phone | [...] + + | 06/02/ | Telephone | [facility] | Barbi Sanches, | Referral | | 2019 | | NEUROLOGY [address] | [address] | | | | | [address] | [facility] | | | | | [place], [place] | [place] [address] | | | | | [address] | [phone] | | | | | [phone] | | | +--------+ + + + [...] | | | | | | [place] [address] | | | | | | [phone] | | | | | | | | +--------+---------+ + + + documented as of this encounter Visit Diagnoses Not on filedocumented in this encounter"
--- OUTSIDE RECORDS SUMMARY | ~2019-07-14 | XMS | Clinical Summary ---
Demographics + + + | Address | [address] | | | [place] [address] | + + + | Home Phone | | + + + | Preferred Language | Unknown | + + + | Marital Status | Unknown | + + + | Rastafarian Affiliation | Unknown | + + + | Race | Unknown | + + + | Ethnic Group | Unknown | + + + Author + + + | Author | [facility] | | | and Todd | + + + | Organization | [facility] | | | and [place] | + + + | Address | Unknown | + + + | Phone | Unavailable | + + + Care Team Providers + +------+ + | Care Fertilizer Supervisor Name | Role | Phone | [...] family medicine | | | | | Performance Improvement Coordinator | chart notes and | | | [...] D | | | | | | [place] [address] | | | | | | [phone] | | | | | | | [...] +--------+-------+---------+--------+ | AETNA MEDICARE | AETNA | [id number] | 09/14/19 | | | Medica | [...] | | | 2 (Home) | [place] [address] | + +--------+ +--------+ + + Advance Directives Patient has advance care planning documents on file. For more information, please contact:[facility]em [facility] [place] [address]"
[~2019-07-14 10:30] MED LIST changes: +HYDROCODON-ACE1 EA10 PO; +IBUPROFEN600 MG PO; +TYLENOL EXTRA500 MG PO
== END 2019-07-14 11:51 | disposition home or self-care (01) ==
LOC: ED 10:30
DX: T86.828 Other complications of skin graft (allograft) (autograft) (principal); F17.200 Nicotine dependence, unspecified, uncomplicated; Z79.899 Other long term (current) drug therapy
CPT/HCPCS: 99283

== ENCOUNTER 2020-03-09 18:35 | Inpatient (IN) | payer MEDICARE, OTHER ==
[~2020-03-09] VITALS: Ht 167.6 cm; Wt 64.0 kg
--- OUTSIDE RECORDS SUMMARY | ~2020-03-09 | XMS | Encounter Summary ---
Demographics + + + | Address | [address] | | | [place] [address] | + + + | Home Phone | | + + + | Preferred Language | Unknown | + + + | Marital Status | Unknown | + + + | Mu-Ism Affiliation | Unknown | + + + | Race | Unknown | + + + | Ethnic Group | Unknown | + + + Author + + + | Author | [facility] | | | and [place] | + + + | Organization | [facility] | | | and [place] | + + + | Address | Unknown | + + + | Phone | Unavailable | + + + Care Team Providers + +------+ + | Care Insurance Verification Representative Name | Role | Phone | + +------+ + PCP | Unavailable | + +------+ + Reason for Visit + +--------+ + | Reason | Onset | Comments | | | Date | | + +--------+ + | New Patient | 10/17/ | reschedule new patient appointment 10/18 | | | 2019 | | + +--------+ + Encounter Details +--------+ + + + + | Date | Type | Department | Care Team | Description | +--------+ + + + + | 10/17/ | Telephone | [facility] | Barbi Sanches, | New Patient | | 2019 | | NEUROLOGY [address] | MD [address] | (reschedule new | | | | [address] | [address] | patient appointment | | | | [place] | [place] [address] | 10/18) | | | | [address] | [phone] | | | | | [phone] | | | +--------+ + + + + Social History + +-------+ +--------+------+ | Tobacco Use | Types | Packs/Day | Years | Date | | | | | Used | | + +-------+ +--------+------+ | Never Assessed | | | | | + +-------+ +--------+------+ + + + | Sex Assigned at | Date Recorded | | | | + + + | Not on file | | + + + documented as of this encounter Miscellaneous Notes Telephone Encounter - Trinity Turner - 10/17/2019 9:52 AM Marilyn/, is calling re garding New Patient (reschedule new patient appointment 10/18) and would like a call back. Additional Call Details: Reschedule 10/18 new patient appointment. Would like to reschedu ernst in March. Prefers an late morning afternoon appointment. [phone] Home [phone] Cell If this is a symptom based call, was patient offered triage? Not Applicable If this is a symptom based call and you were unable to immediately transfer the call to a tamika reyes cage/vault supervisor was caller made aware that if at any time she feels it is an emergency they sh ould call 911 or go to the nearest emergency room? not applicable documented in this encounter Plan of Treatment +--------+---------+ + + + | Date | Type | Specialty | Care Team | Description | +--------+---------+ + + + | 03/14/ | Office | Neurology | Barbi Sanches, | | 2019 | Visit | Jennifer LOBATO | | | | | | [address] | | | | | | [place] [address] | | | | | | [phone] | | | | | | | | +--------+---------+ + + + documented as of this encounter Visit Diagnoses Not on filedocumented in this encounter"
--- OUTSIDE RECORDS SUMMARY | ~2020-03-09 | XMS | Encounter Summary ---
Demographics + + + | Address | [address] | | | [place] [address] | + + + | Home Phone | | + + + | Preferred Language | Unknown | + + + | Marital Status | Unknown | + + + | Alevism Affiliation | Unknown | + + + | Race | Unknown | + + + | Ethnic Group | Unknown | + + + Author + + + | Author | [facility] | | | and [place] | + + + | Organization | [facility] | | | and [place] | + + + | Address | Unknown | + + + | Phone | Unavailable | + + + Care Team Providers + +------+ + | Care Insurance Writer Name | Role | Phone | + +------+ + PCP | Unavailable | + +------+ + Reason for Visit + +--------+ + | Reason | Onset | Comments | | | Date | | + +--------+ + | Appointment | 10/11/ | | | | 2019 | | + +--------+ + Encounter Details +--------+ + + + + | Date | Type | Department | Care Team | Description | +--------+ + + + + | 10/11/ | Telephone | [facility] | Dhiraj Pennington, | Appointment | | 2019 | | NEUROLOGY [address] | Lacquer Dipping Machine Operator | | | | | [address] | | | | | | [place] | | | | | | [address] | | | | | | [phone] | | | +--------+ + + + [...] this encounter Miscellaneous Notes Telephone Encounter - Dhiraj Pennington, Lacquer Dipping Machine Operator - 10/11/2019 10:48 AM PST#1 Call- C arslan pts number and sister answered at [phone]. Sister stated she didn't know it pt wa s going to be able to make it or not. Sister stated she was seeing pt this Thursday and would call us and let us know if pt can make it or not.Electronically signed by Emiliano Roberts [facility] Vice President Of Manufacturing at 10/11/2019 10:49 AM PSTdocumented in this encounter Plan of Treatment +--------+---------+ + + + | Date | Type | Specialty | Care Team | Description | +--------+---------+ + + + | 03/14/ | Office | Neurology | Barbi Sanches, | | | 2019 | Visit | | MD Michael LOBATO | | | | | | [address] | | | | | | [place] [address] | | | | | | [phone] | | | | | | | | +--------+---------+ + + + documented as of this encounter Visit Diagnoses Not on filedocumented in this encounter"
--- OUTSIDE RECORDS SUMMARY | ~2020-03-09 | XMS | Encounter Summary ---
Demographics + + + | Address | [address] | | | [place] [address] | + + + | Home Phone | | + + + | Preferred Language | Unknown | + + + | Marital Status | Unknown | + + + | Church Affiliation | Unknown | + + + | Race | Unknown | + + + | Ethnic Group | Unknown | + + + Author + + + | Author | [facility] | | | and [place] | + + + | Organization | [facility] | | | and [place] | + + + | Address | Unknown | + + + | Phone | Unavailable | + + + Care Team Providers + +------+ + | Care Tube Coater Name | Role | Phone | + +------+ + PCP | Unavailable | + +------+ + Reason for Visit +--------+--------+ + | Reason | Onset | Comments | | | Date | | +--------+--------+ + | Other | 05/10/ | [facility] chart notes and referral | | | 2018 | | +--------+--------+ + Encounter Details +--------+ + + + + | Date | Type | Department | Care Team | Description | +--------+ + + + + | 05/10/ | Telephone | [facility] | Frank Pacheco, | Other (Amanda | | 2018 | | NEUROLOGY [address] | [facility] | family medicine | | | | [address] | [place] | chart notes and | | | | [place] | | referral ) | | | | [address] | | | | | | [phone] | | | +--------+ + + + [...] this encounter Miscellaneous Notes Telephone Encounter - Meredith Zarate Sports Team Marketing Intern - 05/10/2019 11:[address] [facility] chart notes and referral documented in this encounter Plan of Treatment +--------+---------+ + + + | Date | Type | Specialty | Care Team | Description | +--------+---------+ + + + | 03/14/ | Office | Neurology | Barbi Sanches, | | | 2019 | Visit | | MD Michael LOBATO | | | | | | [address] | | | | | | [place] [address] | | | | | | [phone] | | | | | | | | +--------+---------+ + + + documented as of this encounter Visit Diagnoses Not on filedocumented in this encounter"
--- OUTSIDE RECORDS SUMMARY | ~2020-03-09 | XMS | Clinical Summary ---
Demographics + + + | Address | [address] | | | [address] | | | [place] [address] | + + + | Home Phone | | + + + | Preferred Language | Unknown | + + + | Marital Status | Unknown | + + + | Pentecostalism Affiliation | Unknown | + + + | Race | Unknown | + + + | Ethnic Group | Unknown | + + + Author + + + | Author | [facility] | | | and Todd | + + + | Organization | [facility] | | | and [place] | + + + | Address | Unknown | + + + | Phone | Unavailable | + + + Care Team Providers + +------+ + | Care Medical Pathology Teacher Name | Role | Phone | + +------+ + PCP | Unavailable | + +------+ + Allergies Not on File Medications Not on file Active Problems Not on file Social History + +-------+ +--------+------+ | Tobacco [...] | | 2019 | Visit | | [address] | | | | | | [employer] [address] | | | | | | [place] [address] | | | | | | [phone] | | | | | | | | +--------+---------+ + + + + + +-------+ + | Health Maintenance [...] +--------+-------+---------+--------+ | AETNA MEDICARE | AETNA | [id number] | 09/14/19 | | | Medica | [...] | Self | [birth year] | | [address] | | | al/Fam | | 1941 | [phone] | [address] [place], | | | [address] | | | [address] (Home) | [place] [address] | + +--------+ +--------+ + + Advance Directives + + + + + | Type | Date Recorded | Patient | Explanation | | | | Forming Operator | | + + + + + | Power of | | | | | Flatwork Tier | | | | + + + + + | Advance | | | | | Directive | | | | + + + + +"
--- OUTSIDE RECORDS SUMMARY | ~2020-03-09 | XMS | Encounter Summary ---
Demographics + + + | Address | [address] | | | [place] [address] | + + + | Home Phone | | + + + | Preferred Language | Unknown | + + + | Marital Status | Unknown | + + + | Sikh Affiliation | Unknown | + + + | Race | Unknown | + + + | Ethnic Group | Unknown | + + + Author + + + | Author | [facility] | | | and [place] | + + + | Organization | [facility] | | | and [place] | + + + | Address | Unknown | + + + | Phone | Unavailable | + + + Care Team Providers + +------+ + | Care Spool Cleaner Hand Name | Role | Phone | + [...] + + | 10/11/ | Telephone | [facility] | Dhiraj Pennington, | Appointment | | 2019 | | NEUROLOGY [address] | [place] | | | | | [address] | | | | | | [place] | | | | | | [address] | | | | | | [phone] | | | +--------+ + + + [...] Miscellaneous Notes Telephone Encounter - Dhiraj Pennington, [place] - 10/11/2019 10:48 AM PST#1 Call- C arslan pts number and sister answered at [phone]. Sister stated she didn't know it pt wa s going to be able to make it or not. Sister stated she was seeing pt this Thursday and would call us and let us know if pt can make it or not. documented in this encounter Plan of Treatment [...] | | | | | [place] [address] | | | | | | [phone] | | | | | | | | +--------+---------+ + + + documented as of this encounter Visit Diagnoses Not on filedocumented in this encounter"
--- OUTSIDE RECORDS SUMMARY | ~2020-03-09 | XMS | Clinical Summary ---
Demographics + + + | Address | [address] | | | [address] | | | [place] [address] | + + + | Home Phone [...] + + + | Author | [facility] | | | and Todd | + + + | Organization | [facility] | | | and [place] | + + + | Address | Unknown | + + + | Phone | Unavailable | + + + Care Team Providers + +------+ + | Care Vending Machine Host/Hostess Name | Role | Phone | + [...] [address] | | | | | | [employer] [address] | | | | | | [place] [address] | | | | | | [phone] | | | | | | | [...] +--------+-------+---------+--------+ | AETNA MEDICARE | AETNA | [id number] | 09/14/19 | | | Medica | [...] | | al/Fam | | 1941 | [phone] | [address] [place], | | | [address] | | | [address] (Home) | [place] [address] | + +--------+ +--------+ + + Advance Directives + + + + + | Type | Date Recorded | Patient | Explanation | | | | Eco Industrial Development Consultant | | + + + + + | Power of | | | | | Spud Grader | | | | + + + + + | Advance | | | | | Directive | | | | + + + + +"
--- OUTSIDE RECORDS SUMMARY | ~2020-03-09 | XMS | Encounter Summary ---
Demographics + + + | Address | [address] | | | [place] [address] | + + + | Home Phone | | + + + | Preferred Language | Unknown | + + + | Marital Status | Unknown | + + + | Mandaen Affiliation | Unknown | + + + | Race | Unknown | + + + | Ethnic Group | Unknown | + + + Author + + + | Author | [facility] | | | and [place] | + + + | Organization | [facility] | | | and [place] | + + + | Address | Unknown | + + + | Phone | Unavailable | + + + Care Team Providers + +------+ + | Care Claims Counsel Name | Role | Phone | + +------+ + PCP | Unavailable | + +------+ + Reason for Visit + +--------+ + | Reason | Onset | Comments | | | Date | | + +--------+ + | Referral | 06/02/ | | | | 2019 | | + +--------+ + Encounter Details +--------+ + + + + | Date | Type | Department | Care Team | Description | +--------+ + + + + | 06/02/ | Telephone | [facility] | DavidBarbi sharif, | Referral | | 2019 | | NEUROLOGY [address] | MD [address] | | | | | [address] | [facility] [address] | | | | | [place], [place] | [place] [address] | | | | | [address] | [phone] | | | | | [phone] | | | +--------+ + + + [...] this encounter Miscellaneous Notes Telephone Encounter - [place], Charlie Brown - 06/02/2019 2:52 PM Mateo, is calling bernarda Referral and would like a call back. Additional Call Details: Calling to schedule from new referral. Please call him back at [phone]. If this is a symptom based call, was patient offered triage? Not Applicable If this is a symptom based call and you were unable to immediately transfer the call to a tamika reyes [place] brushing machine operator was caller made aware that if at any time she feels it is an emergency they sh ould call 911 or go to the nearest emergency room? Not applicable documented in this encounter Plan of Treatment +--------+---------+ + + + | Date | Type | Specialty | Care Team | Description | +--------+---------+ + + + | 03/14/ | Office | Neurology | Barbi Sanches, | | | 2019 | Visit | | MD Michael LOBATO | | | | | | [address] | | | | | | [place] [address] | | | | | | [phone] | | | | | | | | +--------+---------+ + + + documented as of this encounter Visit Diagnoses Not on filedocumented in this encounter"
--- OUTSIDE RECORDS SUMMARY | ~2020-03-09 | XMS | Encounter Summary ---
Demographics + + + | Address | [address] | | | [place] [address] | + + + | Home Phone | | + + + | Preferred Language | Unknown | + + + | Marital Status | Unknown | + + + | Church Affiliation | Unknown | + + + | Race | Unknown | + + + | Ethnic Group | Unknown | + + + Author + + + | Author | [facility] | | | and [place] | + + + | Organization | [facility] | | | and [place] | + + + | Address | Unknown | + + + | Phone | Unavailable | + + + Care Team Providers + +------+ + | Care Form Tamper Name | Role | Phone | + [...] + + | 10/17/ | Telephone | [facility] | Barbi Sanches, | New Patient | | 2019 | | NEUROLOGY [address] | MD [address] | (reschedule new | | | | [address] | [address] | patient appointment | | | | [place] | [place] [address] | 10/18) | | | | [address] | [phone] | | | | | [phone] | | | +--------+ + + + [...] March. Prefers an late morning afternoon appointment. [phone] Home [phone] Cell If this is a symptom based call, was patient offered triage? Not Applicable If this is a symptom based call and you were unable to immediately transfer the call to a tamika reyes pinking machine operator was caller made aware that [...] | | | | | [place] [address] | | | | | | [phone] | | | | | | | | +--------+---------+ + + + documented as of this encounter Visit Diagnoses Not on filedocumented in this encounter"
--- OUTSIDE RECORDS SUMMARY | ~2020-03-09 | XMS | Encounter Summary ---
Demographics + + + | Address | [address] | | | [place] [address] | + + + | Home Phone | | + + + | Preferred Language | Unknown | + + + | Marital Status | Unknown | + + + | Sikh Affiliation | Unknown | + + + | Race | Unknown | + + + | Ethnic Group | Unknown | + + + Author + + + | Author | [facility] | | | and [place] | + + + | Organization | [facility] | | | and [place] | + + + | Address | Unknown | + + + | Phone | Unavailable | + + + Care Team Providers + +------+ + | Care Events Intern Name | Role | Phone | + [...] + + | 06/02/ | Telephone | [facility] | DavidBarbi sharif, | Referral | | 2019 | | NEUROLOGY [address] | MD [address] | | | | | [address] | [facility] [address] | | | | | [place], [place] | [place] [address] | | | | | [address] | [phone] | | | | | [phone] | | | +--------+ + + + [...] this encounter Miscellaneous Notes Telephone Encounter - [place], Charlie Brown - 06/02/2019 2:52 PM Mateo, is calling bernarda Referral and would like a call back. Additional Call Details: Calling to schedule from new referral. Please call him back at [phone]. If this is a symptom based call, was patient offered triage? Not Applicable If this is a symptom based call and you were unable to immediately transfer the call to a tamika reyes reaming press operator was caller made aware that if [...] [address] | | | | | | [place] [address] | | | | | | [phone] | | | | | | | | +--------+---------+ + + + documented as of this encounter Visit Diagnoses Not on filedocumented in this encounter"
--- OUTSIDE RECORDS SUMMARY | ~2020-03-09 | XMS | Encounter Summary ---
Demographics + + + | Address | [address] | | | [place] [address] | + + + | Home Phone [...] + + | Author | [facility] | | | and [place] | + + + | Organization | [facility] | | | and [place] | + + + | Address | Unknown | + + + | Phone | Unavailable | + + + Care Team Providers + +------+ + | Care Surgeon Partner Name | Role | Phone | + +------+ + PCP | Unavailable | + +------+ + Reason for Visit +--------+--------+ + | Reason | Onset | Comments | | | Date | | +--------+--------+ + | Other | 05/10/ | [facility] chart notes and referral | | | 2018 | | +--------+--------+ + Encounter Details +--------+ + + + + | Date | Type | Department | Care Team | Description | +--------+ + + + + | 05/10/ | Telephone | [facility] | Frank Pacheco, | Other (Amanda | | 2018 | | NEUROLOGY [address] | [facility] | family medicine | | | | [address] | [employer] | chart notes and | | | | [place] | | referral ) | | | | [address] | | | | | | [phone] | | | +--------+ + + + [...] Miscellaneous Notes Telephone Encounter - Meredith Zarate Small Lot Operator - 05/10/2019 11:24 AM [facility] chart notes and referral documented in this [...] | | | | | [place] [address] | | | | | | [phone] | | | | | | | | +--------+---------+ + + + documented as of this encounter Visit Diagnoses Not on filedocumented in this encounter"
--- NOTE | 2020-03-09 23:04 | NUR ---
PT IS CONFUSED AND DROWSY. SCATTERED ABRASIONS AND BRUISING NOTED. BLISTERS ON LEFT FLANK AND LLE. THE TIPS OF TOES ARE RED. PT POSITIONED IN BED WITH PILLOWS ON HER BACK, HOB ELEVATED, LEGS SUPPORTED. IV CDI, WNL, FLUSHED WELL. IV FLUID INFUSING PER ORDER. SOARES WNL, UO YELLOW. PAIN 1 ON FACES SCALE. EDEMEA 3+ IN RLE, 2+ LLE AND GENERALIZED IN LEFT FACE. BED ALARM ON, RAILS UP, DOOR SLIGHTLY OPEN, CALL LIGHT IN REACH.
--- NOTE | 2020-03-10 00:05 | NUR ---
PT RESTING IN BED, EYES CLOSED. RR EVEN, UNLABORED. SOARES WNL. IV FLUIDS INFUSING PER ORDER. BED ALARM ON, RAILS UP, CALL LIGHT IN REACH.
--- NOTE | 2020-03-10 02:09 | NUR ---
WITH THE HELP OF ELSY PATEL WE REPOSITIONED PT IN BED. VITALS AND I&OS DONE AND CHARTED. BED ALARM ON. CALL LIGHT IN REACH.
--- NOTE | 2020-03-10 02:09 | NUR ---
PT RESTING IN BED, WAKES TO VOICE. PT SPEECH INAPPROPRIATE. NOT ORIENTED TO PERSON, PLACE, TIME OR EVENT. VS AND I&O COMPLETED. IV WNL. IV FLUIDS INFUSING PER ORDER. PT REPOSITIONED. SOARES WNL. BED ALARM ON, RAILS UP, CALL LIGHT IN REACH.
--- NOTE | 2020-03-10 04:05 | NUR ---
ASSESSMENT COMPLETED. NEW BAG OF IV FLUIDS PROVIDED. PT DROWSY, WAKES TO VOICE. CONFUSED, NOT ORIENTED TO PLACE, TIME, EVENTS OR DATE. IV WNL, CDI, FLUIDS INFUSING PER ORDER. NO CHANGES TO EDEMA IN FACE, L WRIST OR BLE. PT GETS A 1 ON FACES SCALE. PT REPOSITIONED. SOARES WNL, UO DILUTE. PT ASKS FOR WATER, MOUTH SWAB AND CHAPSTICK PROVIDED. BED ALARM ON, RAILS UP, CALL LIGHT IN REACH.
--- NOTE | 2020-03-10 05:09 | NUR ---
PT DROWSY AND SLEPT MOST THE NIGHT. SHE WAKES TO VOICE BUT CONFUSED, NOT ORIENTED TO PERSON, PLACE, TIME OR EVENTS. MOVEMENTS ARE CONTROLLED, PARKINSON TREMORS NOTED. EDEMA NOTED IN LEFT FACE, WRIST AND BLE THAT HAD NO CHANGES DURING SHIFT. ABRASIONS AND BRUISING SCATTERED, OPEN TO AIR. BLISTERS NOTED AND UNCHANGED ON LEFT FLANK AND LEFT LEG, OPEN TO AIR. SOARES WNL, UO DILUTE AND SUFFICIENT. IV WNL, CDI, FLUSHED WELL. PT TOLERATED IV FLUIDS WELL.
--- NOTE | 2020-03-10 05:43 | NUR ---
BLADDER SCAN PERFORMED UO HAS BEEN 45ML AND DILUTE OVER THE LAST 4 HOURS. 170ML IN BLADDER. PT REPOSITIONED AND SOARES MANIPULATED FOR BETTER POSITIONING. URINE FLOWS IN TUBE TO BAG. WILL MONITOR UO AND CHANGES.
--- NOTE | 2020-03-10 07:49 | NUR ---
Pt sitting up in bed, hob elevated. Oral care provided. IV infusing at this time. Personal supplies and call light within reach.
--- NOTE | 2020-03-10 09:23 | NUR ---
PATIENT RESTING IN BED. VITAL SIGNS AND I&O DONE. ORAL CARE DONE. CALL LIGHT WITHIN REACH. NO OTHER NEEDS AT THIS TIME
--- NOTE | 2020-03-10 12:23 | NUR ---
Pt resting in bed, resp even and non labored. IV kcl infusing, iv patent. Pt has no notable distress. Servin intact, patent with clr yellow urine. Personal supplies and call light within reach. No needs at this time.
--- NOTE | 2020-03-10 12:36 | NUR ---
Repositioned pt and provided oral care.
--- NOTE | 2020-03-10 12:57 | EKG ---
[facility] [address] [facility] [place] [address] Signed Normal sinus rhythm Possible Left atrial enlargement Incomplete right bundle branch block Left anterior fascicular block Abnormal ECG When compared with ECG of 20-MAY-2019 14:31, No significant change was found Confirmed by DANIKA SHARMA MD ([id number]) on 03/10/2020 12:57:46 PM Electronically Signed By: DANIKA SHARMA MD 03/10/20 1257 PATIENT NAME: STEVIE DOWLING Electrocardiogram DATE OF : 38 PHYSICIAN: DANIKA SHARMA MD REPORT #: [id number] REPORT IS CONFIDENTIAL AND NOT TO BE RELEASED WITHOUT AUTHORIZATION
--- NOTE | 2020-03-10 13:19 | NUR ---
PATIENT RESTING IN BED. VITAL SIGNS AND I&O DONE. CALL LIGHT WITHIN REACH. NO OTHER NEEDS AT THIS TIME
--- NOTE | 2020-03-10 14:28 | NUR ---
PATIENT SITTING UP IN BED. ORAL CARE DONE, ONE PERSON ASSISTING. CALL LIGHT WITHIN REACH. NO OTHER NEEDS AT THIS TIME
--- NOTE | 2020-03-10 17:23 | NUR ---
PATIENT RESTING IN BED. VITAL SIGNS AND I&O DONE. CALL LIGHT WITHIN REACH. NO OTHER NEEDS AT THIS TIME
--- NOTE | 2020-03-10 18:20 | NUR ---
Pt's mentation has improved. Tolerating minced & moist diet. Reposition q2hrs. rodríguez intact; q/s output. Pt wakes to verbal stimuli, sleeps on/off. Abrasions and bruises throughout. D5LR @100ml/hr.
--- NOTE | 2020-03-10 19:28 | NUR ---
SHIFT REPORT RECEIVED FROM ANGELINA CHIN. PT RESTING IN BED, ASKS FOR GLASSES. PT NOT ORIENTED TO PERSON, PLACE, TIME OR EVENT. IV WNL, FLUIDS INFUSING PER ORDER. BED RAILS UP, BED ALARM ON, CALL LIGHT IN REACH.
--- NOTE | 2020-03-10 20:11 | NUR ---
ASSESSMENT COMPLETED. PT WAS A&O X3 EXCEPT TIME WHEN USING A PAPER AND PEN COMMUNICATION APROACH. TRACE LEFT SIDE FACIAL EDEMA AND LEFT WRIST EDEMA. 2+ EDEMA IN LEFT LEG AND 3+ IN RIGHT LEG. SCATTERED ABRASIONS AND BRUISING NOTED. LEFT FLANK AND LLE BLISTERS NOTE, OPEN TO AIR. REDNESS ON TIPS OF TOES NOTED. CMS INTACT X4 EXTREMITIES. LUNGS CLEAR, BOWELS ACTIVE. PT REPOSITIONED. SOARES CARE AND ICE WATER PROVIDED BY PACO HOLLOWAY. NO OTHER NEEDS AT THIS TIME. CALL LIGHT IN REACH, RAILS UP, BED ALARM ON.
--- NOTE | 2020-03-10 23:55 | NUR ---
PT RESTING IN BED, WATCHING TV. IV FLUIDS INFUSING PER ORDER. SOARES WNL. NO NEEDS. CALL LIGHT IN REACH. BED ALARM ON, RAILS UP.
--- NOTE | 2020-03-11 00:32 | NUR ---
PT WAS CALLING OUT. I WENT INTO HER ROOM TO SEE WHAT I COULD HELP HER WITH? SHE COULDNT FIND HER CALL LIGHT . IT WAS ON THE SIDE OF HER ON THE BED . I GAVE IT TO HER.
--- NOTE | 2020-03-11 01:15 | NUR ---
PT AWAKE IN ROOM, PT REPOSITIONED. IV WNL, SOARES WNL. IV FLUIDS INFUSING PER ORDER. NO OTHER NEEDS. CALL LIGHT IN REACH.
--- NOTE | 2020-03-11 01:30 | NUR ---
I& OS DONE AND CHARTED. PT RESTING IN BED.
--- NOTE | 2020-03-11 01:58 | NUR ---
PT RESTING IN BED, EYES CLOSED. NEW BAG OF IV FLUIDS PROVIDED. RR EVEN, UNLABORED. CALL LIGHT IN REACH.
--- NOTE | 2020-03-11 03:28 | NUR ---
PT CALLS OUT FOR "NURSE". PT SAYS "I CAN'T STAND THIS CATHETER. CAN I JUST HAVE A DIAPER?". CATHETER CHECKED AND DRAINED LINE. PT DENIES PAIN FROM CATHETER. EDUCATION PROVIDED CONCERNING CATHETER AND SOARES CARE. PT VERBALIZES UNDERSTANDING. PT REPOSITIONED. ASSESSMENT COMPLETED, NO CHANGES. LUNGS CLEAR. BOWEL TONES ACTIVE. CALL LIGHT IN REACH, BED RAILS UP.
--- NOTE | 2020-03-11 05:39 | NUR ---
VITALS AND I&OS DONE AND CHARTED. REPOSITIONED PT IN BED . DATA SECURITY ANALYST HER WITH BABY WIPES. REPLACED THE GREG AND ATTENDS WITH NEW CLEAN ONES. TONG CARE DONE. GARBAGES EMPTIED. BEDSIDE TABLE AND CALL LIGHT IN REACH.
--- NOTE | 2020-03-11 05:42 | NUR ---
TONG CARE PROVIDED. PT REPOSITIONED. VS AND I&O COMPLETED WITH DECEMBER JEWEL. IV WNL. FANY WNL. SCD REMOVED PT SAID IT WAS PAINFUL NEAR HER SKIN GRAFT. NO OTHER NEEDS AT THIS TIME. CALL LIGHT IN REACH.
--- NOTE | 2020-03-11 06:31 | NUR ---
PT SLEPT OFF AND ON THIS SHIFT. PT A&O TO PERSON, PLACE AND EVENTS. COMMUNICATION HAS BEEN MUCH BETTER USING PEN AND PAPER SHE IS VERY [place]. PT STATES SHE WANTS THE SOARES CATHETER OUT, SOARES WNL, PT REPOSITIONING HELPS RELIEVE IRRITATION. UOS, DILUTE. VSS. TRACE EDEMA IN LEFT FACE AND LEFT WRIST. BLE 2+, SCD ON RIGHT LEG, TOLERATES WELL. IV WNL, FLUSHED WELL. PT TOLERATED IV FLUIDS WELL. BLISTERS ON LEFT FLANK AND LLE OPEN TO AIR. LUNGS CLEAR IN ALL LOBES.
--- NOTE | 2020-03-11 07:20 | NUR ---
Pt sleeping, respirations even and non labored. Pt has no distress noted. Personal supplies and call light within reach.
--- NOTE | 2020-03-11 08:09 | NUR ---
PATIENT RESTING IN BED. RN IN ROOM. PATIENT ASSISTED TO TRANSFER TO CHAIR, TWO PERSON ASSISTING. WARM BLANKET PROVIDED. PATIENT'S HANDS AND FACE WASHED. LINENS CHANGED. CALL LIGHT WITHIN REACH. NO OTHER NEEDS AT THIS TIME
--- NOTE | 2020-03-11 09:28 | NUR ---
PATIENT SITTING UP IN CHAIR. RN AND PHYSICAL THERAPIST IN ROOM. VITAL SIGNS AND I&O DONE. ICE WATER GIVEN. CALL LIGHT WITHIN REACH. NO OTHER NEEDS AT THIS TIME
--- NOTE | 2020-03-11 10:29 | NUR ---
Pt resting with eyes closed in chair, respirations even and non labored. Pt has no distress noted. Personal supplies and call light within reach. No needs at this time.
--- NOTE | 2020-03-11 10:56 | NUR ---
PATIENT SITTING UP IN THE RECLINER. BEDBATH DONE. CATHETER CARE DONE. PATIENT USING A CLEAN GOWN. WARM BLANKET PROVIDED. CALL LIGHT WITHIN REACH. NO OTHER NEEDS AT THIS TIME
--- NOTE | 2020-03-11 13:44 | NUR ---
PATIENT SITTING UP IN CHAIR. VITAL SIGNS AND I&O DONE. ORAL CARE DONE. ONE PERSON ASSISTING. CALL LIGHT WITHIN REACH. NO OTHER NEEDS AT THIS TIME
--- NOTE | 2020-03-11 16:00 | NUR ---
REPORT RECIEVED FROM ANGELINA CHIN. PT SITTING UP IN CHAIR. DENEIS PAIN. D5LR INFUSING. CALL LIGHTI N RANDY. VISIBLE FROM NURSING STATION.
--- NOTE | 2020-03-11 16:30 | NUR ---
IN TO ADMINSTER MEDICATIONS AND ASSESS PT. PT VERY UTE. ORIENTED TO PLACE, PERSON AND SITUATION. LUNGS CLEAR. HEART SOUNDS REGULAR. BLISTERS INTACT ON LEFT SIDE WITH ONE NON INTACT COVERED WITH ALLEVYN.
--- NOTE | 2020-03-11 17:22 | NUR ---
PATIENT SITTING UP IN CHAIR. VITAL SIGNS AND I&O DONE. CALL LIGHT WITHIN REACH. NO OTHER NEEDS AT THIS TIME
--- NOTE | 2020-03-11 17:25 | NUR ---
FOELY REMOVED. PT TOLERATED WELL.
--- NOTE | 2020-03-11 18:00 | NUR ---
PATIENT SITTING UP IN CHAIR. PATIENT BACKS TO BED. TWO PERSON ASSISTING WITH WALKER. BED ALARM ON. CALL LIGHT WITHIN REACH. NO OTHER NEEDS AT THIS TIME
--- NOTE | 2020-03-11 18:21 | NUR ---
PT HAD GOOD DAY. AMBULATED TO BATHROOM WITH SBA. EATING AND DRINKING WELL. FANY WALTON[employer]Star AT 1730. PT IS AAO TO PERSON PLACE AND SITUATION. BLISTERS INTACT. RAFAEL ON LEFT SIDE. IV WNL. FLUIDS INFUSING WELL.
--- NOTE | 2020-03-11 19:25 | NUR ---
REPORT RECEIVED FROM ELSY CLIFTON. pt APPEARS TO BE SLEEPING. BED ALARM ON AND IN LOW POSITION.
--- NOTE | 2020-03-11 20:00 | NUR ---
pt CALLING OUT. SBA TO RESTROOM WITH FWW FOR VOID, INCONTINENT IN ATTENDS. ATTENDS CHANGED. pt CONFUSED, REORIENTATION TO LOCATION, EVENT. ORIENTED TO DATE. pt DENIES PAIN. CALL LIGHT IN REACH. BED ALARM ON.
--- NOTE | 2020-03-11 22:05 | NUR ---
VITALS AND I&OS DONE AND CHARTED. GARBAGES EMPTIED. BEDSIDE TABLE AND CALL LIGHT IN REACH. PT NEEDS NOTHING MORE AT THIS TIME.
--- NOTE | 2020-03-11 22:09 | NUR ---
IV SITE LEAKING, TENDER, D/C'D WNL. NEW PIV IN RIGHT FOREARM. pt UP TO RESTROOM W FWW, INCONTINENT OF URINE. ATTENDS CHANGED. pt BACK IN BED. NEW BAG IVF INFUSING WNL. BED ALARM ON.
--- NOTE | 2020-03-11 22:27 | NUR ---
SHIFT REPORT RECEIVED FROM ELVA CHIN. PT RESTING IN BED, EYES CLOSED. RR EVEN, UNLABORED. IV FLUIDS INFUSING PER ORDER. CALL LIGHT IN REACH. BED ALARM ON, RAILS UP.
--- NOTE | 2020-03-12 00:42 | NUR ---
WITH THE HELP OF RN JORGE WE CHANGED PT'S ATTENDS INCONTINENT OF URINE. REPOSITIONED HER IN BED TO HER COMFORT. GAVE HER A TV REMOTE PER HER REQUEST. BEDSIDE TABLE AND CALL LIGHT IN REACH. SHE NEEDS NOTHING AT THIS TIME.
--- NOTE | 2020-03-12 00:45 | NUR ---
PT REPOSITIONED IN BED, BRIEFS CHANGED. PT KEEPS ASKING ABOUT HER MEDICATIONS, REASSURED SHE HAS RECEIVED EVERYTHING THE DOCTOR HAS ORDERED. NO OTHER NEEDS AT THIS TIME. CALL LIGHT IN REACH.
--- NOTE | 2020-03-12 03:00 | NUR ---
PT RESTING IN BED, EYES CLOSED. RR EVEN, UNLABORED. IV FLUIDS INFUSING PER ORDER. CALL LIGHT IN REACH. BED ALARM ON.
--- NOTE | 2020-03-12 04:36 | NUR ---
PT AWAKE IN ROOM, WATCHING TV. BRIEFS CHANGED. PT REPOSITIONED. ASSESSMENT COMPLETED. TRACE EDEMA IN LEFT FACE, 2+ BLE. BOWEL TONES ACTIVE. TWO LEFT FLANK BLISTERS NOTED, ONE INTACT, ONE COVERED BY ALLEVYN. LLE BLISTER INTACT, OPEN TO AIR. PT NUIQSUT, USING PAPER AND PEN TO COMMUNICATE. SCATTERED ABRASIONS AND BRUISING NOTED. IV WNL, CDI. NO OTHER NEEDS AT THIS TIME. CALL LIGHT IN REACH.
--- NOTE | 2020-03-12 05:47 | NUR ---
PT SLEPT OFF AND ON LAST NIGHT. PT IS FORGETFUL AND DISORIENTED TO TIME. ORIENTED TO PERSON, PLACE AND EVENTS. PT DENIES PAIN. LUNGS CLEAR. BOWEL TONES ACTIVE. PT TOLERATED IV FLUIDS WELL. IV CDI, WNL.
--- NOTE | 2020-03-12 06:08 | NUR ---
PT CALLS TO USE BR AND IV PUMP ALARMING. PT UP TO BR AND BACK TO BED WITH SHALA PACKAGER OR PACKER AND WEIGHER. IV PUMP ALARM RESOLVED. MENU AND ORDERING INSTRUCTIONS PROVIDED. SHALA PACKAGER OR PACKER AND WEIGHER COMPLETED VS AND I&O. NO OTHER NEEDS. CALL LIGHT IN REACH.
--- NOTE | 2020-03-12 06:55 | NUR ---
VITALS AND I&OS DONE AND CHARTED. WITH THE HELP OF RN JORGE WE CHANGED HER ATTENDS INCONTINENT WITH URINE. GARBAGES EMPTIED. BEDSIDE TABLE AND CALL LIGHT IN REACH.
--- NOTE | 2020-03-12 07:44 | NUR ---
REPORT RECEIVED. 2 PERSON ASSIST TO CHAIR FOR BREAKFAST. ATTENDS CHANGED PT INCONT OF URINE. D5LR AT 100 INFUSING. CALL LIGHT IN REACH
--- NOTE | 2020-03-12 07:59 | NUR ---
PATIENT RESTING IN BED. RN IN ROOM. PATIENT INCONTINENT OF URINE. PERICARE PERFORMED. TWO PERSON ASSISTING. PATIENT TRANSFERS TO CHAIR. TWO PERSON ASSISTING WITH WALKER. PATIENT'S HANDS AND FACE WASHED. LINENS CHANGED. WARM BLANKET PROVIDED. CHAIR ALARM ON. CALL LIGHT WITHIN REACH. NO OTHER NEEDS AT THIS TIME
--- NOTE | 2020-03-12 09:27 | NUR ---
PATIENT SITTING UP IN CHAIR. VITAL SIGNS AND I&O DONE. CALL LIGHT WITHIN REACH. CHAIR ALARM ON. NO OTHER NEEDS AT THIS TIME
--- NOTE | 2020-03-12 10:00 | NUR ---
ROUNDED WITH JENNIFER VILLALTA OF CARE DISCUSSED. NEW ORDERS RECEIVED.
--- NOTE | 2020-03-12 12:00 | NUR ---
PT SITTING UP IN CHIAR EATING LUNCH. CAIR ALARM IN PLACE. CALL LIGHT IN REACH.
--- NOTE | 2020-03-12 12:05 | NUR ---
Spoke with Dr. López and he feels this pt cannot go home alone. He would like her to go to [facility]. Asks I call and speak with her sister. I called and spoke with Leah and she states family would like t Violet to go to a SNF. She requests I speak with encourage her to go. She states she would be fine with returning to [facility] for a short time. Chart faxed to Rosemarie at [facility]. She also states pt is very [place] and I should write out questions.
--- NOTE | 2020-03-12 13:05 | NUR ---
PATIENT SITTING UP IN CHAIR. PATIENT'S ATTENDS CHANGED. TWO PERSON ASSISTING WITH WALKER. PATIENT GOES TO WALK IN THE HALLWAY, TWO PERSON ASSISTING WITH WALKER AND GATE BELT.
--- NOTE | 2020-03-12 13:23 | NUR ---
AMBULATED PT STAND BY ASSIST WITH GAIT BELT AND FWW IN HALLS. . PT TOLERATED VERY WELL. ONE STANDING BREAK. BACK TO ROOM IN CHAIR. CHAIR ALARM IN PLACE. CALL LIGHT IN REACH.
--- NOTE | 2020-03-12 13:45 | NUR ---
PATIENT SITTING UP IN CHAIR. VITAL SIGNS AND I&O DONE. CALL LIGHT WITHIN REACH. NO OTHER NEEDS AT THIS TIME
--- NOTE | 2020-03-12 14:00 | NUR ---
Spoke with Violet for CM assessment. She is very [place]. Most questions I wrote out and she was able to read and answer. She lives in [place] and an apartment alone. She drives. She uses a walker at times. She spend a month in [place] last May. Updated Dr. López does not feel she can go home safely and would like her to go to [facility] for a short time for rehab. She states she will think about it. I had spoken with Rosemarie from [facility] and they would take her today, but pt declines to go today. Will follow up with pt. tomorrow.
[2020-03-12] MEDS ORDERED: CARBIDOPA-LEVO1 EAC1 PO (16:50)
--- NOTE | 2020-03-12 17:34 | NUR ---
PT SITTING UP IN CHAIR FOR DINNER. ASISTED TO BATHROOM. PT FELT THE NEED TO HAVE A BM. PT SITH 100ML URINE AND 1 SMALL SAL BM. PT STILL HAS URGETO GO BUT IS UNABLE. WILL TRY AGAIN LATER.
--- NOTE | 2020-03-12 17:51 | NUR ---
PATIENT SITTING UP IN CHAIR. PATIENT INCONTINENT OF URINE. PERICARE PERFORMED. TWO PERSON ASSISTING. VITAL SIGNS AND I&O DONE. PATIENT USES THE BATHROOM. TWO PERSON ASSISTING WITH WALKER. CALL LIGHT WITHIN REACH. NO OTHER NEEDS AT THIS TIME
--- NOTE | 2020-03-12 18:19 | NUR ---
MED REC COMPLETE
--- NOTE | 2020-03-12 18:23 | NUR ---
OFFERED TO WALK PT IN [place]. PT REFUSED STATING SHE HAD TO WRITE SOME BILLS OUT.
--- NOTE | 2020-03-12 19:34 | NUR ---
REPORT RECEIVED FROM DAY SHIFT RN. PT SITTING IN RECLINER, ALERT AND ORIENTED. QUESTIONS ANSWERED ABOUT POC. CHAIR ALARM IN PLACE. WHITE BOARD UPDATED. CALL LIGHT IN REACH.
--- NOTE | 2020-03-12 20:05 | NUR ---
CHAIR ALARM WENT OFF. SEEN PATIENT WAS UP FROM CHAIR STATING GET ME WALKER I NEED TO GO THERE POINTING TO THE SINK. PATIENT WASHED HER HANDS, FACE AND BRUSHED HER TEETH. PATIENT IS BACK IN BED. V/S AND I&O TAKEN AND RECORDED. BED ALARM ON FOR SAFETY.
--- NOTE | 2020-03-12 20:20 | NUR ---
PT C/O "LEG CRAMPS". DR. ESTEVEZ CALLED, NEW ORDERS RECEIVED VERIFIED WITH READ BACK METHOD.
--- NOTE | 2020-03-12 22:49 | NUR ---
EVENING ASSESSMENT COMPLETE. SCHEDULED MEDS ADMINISTERED, NO SWALLOWING ISSUES NOTED. PT C/O LEG CRAMPS, OFFERED PRN ORDERED BY MD BUT PT REFUSED MEDS. NO FURTHER NEEDS. AT THIS TIME. CALL LIGHT IN REACH. BED ALARM FOR SAFETY.
--- NOTE | 2020-03-12 23:35 | NUR ---
PT RESTING IN BED WITH EYES CLOSED AT THIS TIME, NAD.
--- NOTE | 2020-03-13 01:15 | NUR ---
PATIENT CALLED. NEEDS TO BED CHANGED. SOAKED ATTENDS WITH URINE, WHITE GREG AND GOWN. PATIENT REPOSITIONED. BED ALARM ON FOR SAFETY.
--- NOTE | 2020-03-13 02:00 | NUR ---
PT RESTING IN BED ON RIGHT SIDE WITH EYES CLOSED. RR EVEN AND UNLABORED. BED ALARM ON. CALL LIGHT IN REACH.
--- NOTE | 2020-03-13 05:00 | NUR ---
PT RESTING IN BED WITH EYES CLOSED. NO APPARENT DISTRESS. BED ALARM ON. CALL LIGHT IN REACH.
--- NOTE | 2020-03-13 06:59 | NUR ---
PT INCONTINENT OF LARGE AMOUNT OF URINE. ATTENDS CHANGED. TONG CARE DONE BY STAFF. NO FURTHER NEEDS. BED ALARM ON. CALL LIGHT IN REACH.
--- NOTE | 2020-03-13 07:28 | NUR ---
REPORT RECEIVED. PT IN BED AWAKE. ASSISTED TO BATHROOM WITH ROAD PRODUCTION GENERAL MANAGER FOR SHOWER.
--- NOTE | 2020-03-13 08:19 | NUR ---
PATIENT RESTING IN BED. SETS UP BATHROOM FOR SHOWER. IV WRAPPED. PATIENT TAKES A SHOWER. ORAL CARE DONE. ONE PERSON ASSISTING. PATIENT USING A CLEAN GOWN AND ADULT PULL UP. PATIENT BACKS TO CHAIR, ONE PERSON ASSISTING WITH WALKER. WARM BLANKET PROVIDED. CHAIR ALARM ON. CALL LIGHT WITHIN REACH. NO OTHER NEEDS AT THIS TIME
--- NOTE | 2020-03-13 09:12 | NUR ---
PATIENT SITTING UP IN CHAIR. VITAL SIGNS AND I&O DONE. CALL LIGHT WITHIN REACH. NO OTHER NEEDS AT THIS TIME
--- NOTE | 2020-03-13 09:17 | NUR ---
ASSESSMENT COMPLETED. PT SITTING IN CHIAR FOR BREAKFAST. DENIES PAIN. CALL LIGHT IN REACH.
--- NOTE | 2020-03-13 10:00 | NUR ---
In and spoke with Violet. Questions written out. Pt cont. to decline to go to a SNF. Spoke with sister who came in and visited, pt also refused to go with the sister. Dr. Ho updated.
--- NOTE | 2020-03-13 11:39 | NUR ---
AMBULATED 2 LAPS IN HALLS SBA WITH STAND BY AND GAIT BELT. TO BATHROOM FOR BM. CALL LIGHT IN REACH.
--- NOTE | 2020-03-13 12:04 | NUR ---
PT UNABLE TO HAVE BM. REPORTS BEING CONSTIPATED. SUPPOSITORY ORDERED.
--- NOTE | 2020-03-13 13:00 | NUR ---
Spoke with Dr. Ho. He wanted to know if pt is appropriate for TC. Let him know I had spoken with PT today and they feel pt requires further therapy. Attempted to place pt at SNF for PT, but she declined. He will order TC. Spoke with Deysi Curran Med/surg regional transportation manager and Thania Madsen, they are in agreement for this pt to admit to TC. Dr. Ho notified. In and spoke with Violet. She is delighted and agrees to stay for therapy. Did not want to isolate at the SNF. Brochure for TC and other SNF's available in the area, she does not want to go to any SNf's as they require [address] Ho notified pt in agreement.
--- NOTE | 2020-03-13 13:03 | NUR ---
CALL LIGHT ANSWERED. PATIENT SITTING UP IN CHAIR. PATIENT GOES TO USE THE BATHROOM. ONE PERSON ASSISTING WITH WALKER. PATIENT BACKS TO CHAIR. VITAL SIGNS AND I&O DONE. CHAIR ALARM ON. CALL LIGHT WITHIN REACH. NO OTHER NEEDS AT THIS TIME
--- NOTE | 2020-03-13 15:00 | NUR ---
CALL LIGHT ANSWERED. PATIENT SITTING UP IN CHAIR. PATIENT'S ATTENDS CHANGED. PATIENT BACKS TO BED. ONE PERSON ASSITING WITH WALKER. NO OTHER NEEDS AT THIS TIME
--- NOTE | 2020-03-13 17:30 | NUR ---
Attempted to call sister, Leah, and update. No answer.
--- NOTE | 2020-03-13 17:47 | NUR ---
PT SITTING UP IN BED WITH DINNER. DENIES PAIN OR NEEDS. REQUESTING WALK AFTER DINNER.
--- NOTE | 2020-03-13 17:48 | NUR ---
PATIENT SITTING UP IN BED. VITAL SIGNS AND I&O DONE. CALL LIGHT WITHIN REACH. NO OTHER NEEDS AT THIS TIME
--- NOTE | 2020-03-13 19:37 | NUR ---
REPORT RECEIVED FROM DAY SHIFT RN. PT LYING IN BED, ALERT AND ORIENTED. DENIES NEEDS AT THIS TIME. BED ALARM ON. WHITE BOARD UPDATED. CALL LIGHT IN REACH.
== END 2020-03-13 20:39 | disposition swing bed (61) | DRG 557 ==
LOC: ED 18:35 → MS 21:51
PROVIDERS: ADMIT Internal Medicine
DX: M62.82 Rhabdomyolysis (principal); G93.41 Metabolic encephalopathy; G20 Parkinson's disease; Z20.828 Contact with and (suspected) exposure to other viral communicable diseases; E86.0 Dehydration; R29.6 Repeated falls; D72.829 Elevated white blood cell count, unspecified; D69.6 Thrombocytopenia, unspecified; R74.0 Nonspecific elevation of levels of transaminase and lactic acid dehydrogenase [LDH]; Z79.899 Other long term (current) drug therapy
CPT/HCPCS: 36415; 51798; 70450; 71045; 80048; 80053; 81001; 82550; 83735; 83874; 84100; 84132; 85025; 93005; 93010; 97110; 97163; 97165; 97530; 99285-25; C9803; J1650; J3475; J3480; J7030; J7060; J7121; U0002

== ENCOUNTER 2020-03-13 20:44 | Inpatient (IN) | payer MEDICARE, OTHER ==
[~2020-03-13] VITALS: Ht 167.6 cm; Wt 66.7 kg
--- OUTSIDE RECORDS SUMMARY | ~2020-03-13 | XMS | Clinical Summary ---
Demographics + + + | Address | [address] | | | [address] | | | [place] [address] | + + + | Home Phone | | + + + | Preferred Language | Unknown | + + + | Marital Status | Unknown | + + + | Holiness Affiliation | Unknown | + + + | Race | Unknown | + + + | Ethnic Group | Unknown | + + + Author + + + | Author | [facility] | | | and [place] | + + + | Organization | [facility] | | | and [place] | + + + | Address | Unknown | + + + | Phone | Unavailable | + + + Care Team Providers + +------+ + | Care Plasterer Maintenance Name | Role | Phone | + +------+ + PCP | Unavailable | + +------+ + Allergies Not on File Medications Not on file Active Problems Not on file Encounters +--------+ + + + + | Date | Type | Specialty | Care Team | Description | +--------+ + + + + | 03/12/ | Telephone | Neurology | Barbi Sanches, | Appointment (03/14/20) | | 2020 | | | MD | | +--------+ + + + + from Last 3 Months Social History + +-------+ +--------+------+ | Tobacco [...] on file | | + + + Last Filed Vital Signs Not on file Plan of Treatment + + +-------+ + | Health Maintenance | Due Date | Last | Comments | | | | Done | | + + +-------+ + | Vaccine: | | | | | Dtap/Tdap/Td (1 - | 9 | | | | Tdap) | | | | + + +-------+ + | Vaccine: Zoster (1 | | | | | of 2) | 0 | | | + + +-------+ + | Vaccine: | | | | | Pneumococcal 65+ (1 | 5 | | | | of 1 - PPSV23) | | | | + + +-------+ + | Adult Annual | | | | | Wellness Visit | 9 | | | + + +-------+ + | Vaccine: Influenza | | | | | (Season Ended) | 0 | | | + + +-------+ + Results Not on filefrom Last 3 Months Insurance + +--------+ +--------+-------+---------+--------+ | Payer | Benefi | Subscriber | Effect | Phone | Address | Type | | | t Plan | ID | jerad | | | | | | / | | Dates | | | | | | Group | | | | | | + +--------+ +--------+-------+---------+--------+ | AETNA MEDICARE | AETNA | [id number] | 09/14/19 | | | Medica | | | MDCR | | 19-Pre | | | re | | | PPO | | sent | | | | + +--------+ +--------+-------+---------+--------+ + +--------+ +--------+ + + | Guarantor Name | Accoun | Relation to | Date | Phone | Billing Address | | | t Type | Patient | of | | | | | | | | | | + +--------+ +--------+ + + | Violet Aguiar | Person | Self | [birth year] [address] | | | al/Fam | | 1941 | [phone] | [address] [place], | | | [address] | | | [address] (Home) | [place] [address] | + +--------+ +--------+ + + Advance Directives + + + + + | Type | Date Recorded | Patient | Explanation | | | | Adjunct Psychology Faculty Member | | + + + + + | Power of | | | | | Ledger Poster | | | | + + + + + | Advance | | | | | Directive | | | | + + + + +"
--- OUTSIDE RECORDS SUMMARY | ~2020-03-13 | XMS | Encounter Summary ---
Demographics + + + | Address | [address] | | | [address] | | | [place] [address] | + + + | Home Phone | | + + + | Preferred Language | Unknown | + + + | Marital Status | Unknown | + + + | Roman Catholic Affiliation | Unknown | + + + | Race | Unknown | + + + | Ethnic Group | Unknown | + + + Author + + + | Author | [facility] | | | and [place] | + + + | Organization | [facility] | | | and [place] | + + + | Address | Unknown | + + + | Phone | Unavailable | + + + Care Team Providers + +------+ + | Care Category Development Manager Name | Role | Phone | + [...] + + | 10/17/ | Telephone | [facility] | Barbi Sanches, | New Patient | | 2019 | | NEUROLOGY 1100 | MD [address] | (reschedule new | | | | [address] | [address] | patient appointment | | | | [place] | [place] [address] | 10/18) | | | | [phone] | [phone] | | | | | [phone] | | | +--------+ + + + [...] new patient appointment. Would like to reschedu le in March. Prefers an late morning afternoon appointment. [phone] Home [phone] Cell If this is a symptom based call, was patient offered triage? Not Applicable If this is a symptom based call and you were unable to immediately transfer the call to a tamika reyes cardroom supervisor was caller made aware that if at any time she feels it is an emergency they sh ould call 911 or go to the nearest emergency room? not applicable documented in this encounter Plan of Treatment Not on filedocumented as of this encounter Visit Diagnoses Not on filedocumented in this encounter"
--- OUTSIDE RECORDS SUMMARY | ~2020-03-13 | XMS | Encounter Summary ---
Demographics + + + | Address | [address] | | | [address] | | | [place] [address] | + + + | Home Phone | | + + + | Preferred Language | Unknown | + + + | Marital Status | Unknown | + + + | Latter Day Affiliation | Unknown | + + + | Race | Unknown | + + + | Ethnic Group | Unknown | + + + Author + + + | Author | [facility] | | | and [place] | + + + | Organization | [facility] | | | and [place] | + + + | Address | Unknown | + + + | Phone | Unavailable | + + + Care Team Providers + +------+ + | Care Shoe Clerk Name | Role | Phone | [...] + + | 10/11/ | Telephone | [facility] | Dhiraj Pennington, | Appointment | | 2019 | | NEUROLOGY [address] | Business Support Administrator | | | | | [address] | | | | | | [place] | | | | | | [address] | | | | | | [phone] | | | +--------+ + + + [...] Miscellaneous Notes Telephone Encounter - Dhiraj Pennington, Business Support Administrator - 10/11/2019 10:48 AM PST#1 Call- C arslan pts number and sister answered at [phone]. Sister stated she didn't know it pt [...]
--- OUTSIDE RECORDS SUMMARY | ~2020-03-13 | XMS | Encounter Summary ---
Demographics + + + | Address | [address] | | | [address] | | | [place] [address] | + + + | Home Phone | | + + + | Preferred Language | Unknown | + + + | Marital Status | Unknown | + + + | Yazidism Affiliation | Unknown | + + + | Race | Unknown | + + + | Ethnic Group | Unknown | + + + Author + + + | Author | [facility] | | | and [place] | + + + | Organization | [facility] | | | and [place] | + + + | Address | Unknown | + + + | Phone | Unavailable | + + + Care Team Providers + +------+ + | Care Accounting Software Specialist Name | Role | Phone | + +------+ + PCP | Unavailable | + +------+ + Reason for Visit +--------+--------+ + | Reason | Onset | Comments | | | Date | | +--------+--------+ + | Other | 05/10/ | [facility] chart notes and referral | | | 2018 | | +--------+--------+ + Encounter Details +--------+ + + + + | Date | Type | Department | Care Team | Description | +--------+ + + + + | 05/10/ | Telephone | [facility] | Frank Pacheco, | Other (Amanda | | 2018 | | NEUROLOGY [address] | [facility] | family medicine | | | | [address] | [employer] | chart notes and | | | | [place] | | referral ) | | | | [address] | | | | | | [phone] | | | +--------+ + + + [...] Miscellaneous Notes Telephone Encounter - Meredith Zarate Retail Marketing Specialist - 05/10/2019 11:24 AM [facility] chart notes and referral documented in this encounter Plan of Treatment Not on filedocumented as of this encounter Visit Diagnoses Not on filedocumented in this encounter"
--- OUTSIDE RECORDS SUMMARY | ~2020-03-13 | XMS | Encounter Summary ---
Demographics + + + | Address | [address] | | | [address] | | | [place] [address] | + + + | Home Phone | | + + + | Preferred Language | Unknown | + + + | Marital Status | Unknown | + + + | Bahai Affiliation | Unknown | + + + | Race | Unknown | + + + | Ethnic Group | Unknown | + + + Author + + + | Author | [facility] | | | and [place] | + + + | Organization | [facility] | | | and [place] | + + + | Address | Unknown | + + + | Phone | Unavailable | + + + Care Team Providers + +------+ + | Care Travel Counselor Name | Role | Phone | + +------+ + PCP | Unavailable | + +------+ + Reason for Visit + +--------+ + | Reason | Onset | Comments | | | Date | | + +--------+ + | Appointment | 03/12/ | 03/14/20 | | | 2020 | | + +--------+ + Encounter Details +--------+ + + + + | Date | Type | Department | Care Team | Description | +--------+ + + + + | 03/12/ | Telephone | [facility] | Barbi Sanches, | Appointment (03/14/20) | | 2020 | | NEUROLOGY [address] | [address] | | | | | [address] | [facility] [address] | | | | | [place], [place] | [place] [address] | | | | | [address] | [phone] | | | | | [phone] | | | +--------+ + + + [...] Miscellaneous Notes Telephone Encounter - Meredith Zarate Straight Tooth Gear Generator Operator - 03/13/2020 10:30 AM PDTA ppointment cancelled Electronically signed by Meredith Pacheco Straight Tooth Gear Generator Operator at 0 03/13/2020 10:30 AM PDTTelephone Encounter - Cristina Cordova - 03/12/2020 8:18 AM Misty mccartney, Sister, is calling regarding Appointment (03/14/20) and would like a call back. Additional Call Details: Calling to cancel 03/14/20 appointment. Violet is in the hospital . Does not wish to reschedule at this time. If this is a symptom based call, was patient offered triage? Not Applicable If this is a symptom based call and you were unable to immediately transfer the call to a tamika reyes cma or lpn was caller made aware that if at any time she feels it is an emergency they sh ould call 911 or go to the nearest emergency room? not applicable documented in this encounter Plan of Treatment Not on filedocumented as of this encounter Visit Diagnoses Not on filedocumented in this encounter"
--- OUTSIDE RECORDS SUMMARY | ~2020-03-13 | XMS | Encounter Summary ---
Demographics + + + | Address | [address] | | | [address] | | | [place] [address] | + + + | Home Phone | | + + + | Preferred Language | Unknown | + + + | Marital Status | Unknown | + + + | Synagogue Affiliation | Unknown | + + + | Race | Unknown | + + + | Ethnic Group | Unknown | + + + Author + + + | Author | [facility] | | | and [place] | + + + | Organization | [facility] | | | and [place] | + + + | Address | Unknown | + + + | Phone | Unavailable | + + + Care Team Providers + +------+ + | Care Farmer General Name | Role | Phone | + [...] + + | 06/02/ | Telephone | [facility] | DavidBarbi sharif, | Referral | | 2019 | | NEUROLOGY 1100 | MD [address] | | | | | [address] | [facility] [address] | | | | | [place], [place] | [place] [address] | | | | | [address] | [phone] | | | | | [phone] | | | +--------+ + + + [...] this encounter Miscellaneous Notes Telephone Encounter - [place], Charlie Brown - 06/02/2019 2:52 PM Mateo, is calling bernarda Referral and would like a call back. Additional Call Details: Calling to schedule from new referral. Please call him back at . If this is a symptom based call, was patient offered triage? Not Applicable If this is a symptom based call and you were unable to immediately transfer the call to a tamika reyes bridge crane operator was caller made aware that if at any time she feels it is an emergency they sh ould call 911 or go to the nearest emergency room? Not applicable documented in this encounter Plan of Treatment Not on filedocumented as of this encounter Visit Diagnoses Not on filedocumented in this encounter"
[~2020-03-13 20:44] MED LIST changes: +CARBIDOPA-LEVO1 EAC1 PO
--- NOTE | 2020-03-13 22:10 | NUR ---
THIS MANAGER INPATIENT AND PRIMARY RN OCTAVIO WIPED/CLEANED PATIENT WITH INCONTINENT. CHANGED BED LINEN, ATTENDS AND GOWN. BED ALARM ON FOR SAFETY.
--- NOTE | 2020-03-13 22:20 | NUR ---
EVENING ASSESSMENT COMPLETE. SCHEDULED MEDS ADMINISTERED PER EMAR. NO SWALLOWING ISSUES NOTED. PT INCONTINENT OF LARGE AMOUNT OF FOUL SMELLING URINE. ATTENDS AND LINENS CHANGED. WARM BLANKET GIVEN. PT DENIES FURTHER NEEDS. BED ALARM FOR SAFETY. CALL LIGHT IN REACH.
--- NOTE | 2020-03-14 01:01 | NUR ---
CALL LIGHT ANSWERED. PT UP TO BSC WITH 2PA AND FWW TO HAVE BM WITH NO LUCK. INCONTINENT OF URINE. TONG CARE DONE. FRESH ATTENDS PLACED. BACK TO BED, LEANDRA WELL. REPOSITIONED WITH PILLOWS. DENIES FURTHER NEEDS. CALL LIGHT IN REACH.
--- NOTE | 2020-03-14 04:50 | NUR ---
pt USED CALL LIGHT TO ASK FOR ASSISTANCE WITH BEING CHANGED. ELSY CUNNINGHAM AND THIS CASH CONTROL SPECIALIST CHANGED AND REPOSITIONED HER. NOTHING FURTHER NEEDED AT THIS TIME.
--- NOTE | 2020-03-14 04:50 | NUR ---
CALL LIGHT ANSWERED. PT REPORTS "I NEED TO BE CHANGED". ATTENDS CHANGED WITH 2PA. TONG CARE DONE BY STAFF. REPOSITIONED IN BED WITH PILLOWS. DENIES FURTHER NEEDS. CALL LIGHT IN REACH.
--- NOTE | 2020-03-14 06:47 | NUR ---
PT RESTING IN BED WITH EYES CLOSED, NAD. BED ALARM ON. CALL LIGHT IN REACH.
--- NOTE | 2020-03-14 07:20 | NUR ---
REPORT RECEIVED FROM ELSY CUNNINGHAM. PT RESTING IN BED. PT REQUESTS TO GO FOR A WALK AFTER BREAKFAST. PT DENIES PAIN AND NAUSEA. ASSISTED WITH ORDERING BREAFKAST. NO ADDITIONAL REQUESTS OR COMPLAINTS AT THIS TIME. CALL LIGHT WITHIN REACH.
--- NOTE | 2020-03-14 09:04 | NUR ---
ANSWERED PATIENTS CALL LIGHT, PATIENT IS EAGER TO GET HER PHYSICAL THERAPY DONE AND BE ABLE TO WALK TODAY, THIS SANDWICH MACHINE OPERATOR TOLD HER IT COMES AT SCHEDULED TIME AND THAT THE PHYSICAL THERAPIST WOULD BE IN AT SOME POINT WELL ANY OF HER OTHER THERAPIES. PATIENT SEEMS TO BE A LITTLE FOCUSED ON CERTAIN TASKS
--- NOTE | 2020-03-14 09:09 | NUR ---
PT SITTING UP IN BED ALERT, AM MED PASS COMPLETE. PT WANTS TO GO FOR WALK. WE WILL DO THIS NOW
--- NOTE | 2020-03-14 09:28 | NUR ---
PT HAD LARGE INCONTINENCE OF URINE, FULL BED CHANGE, PT UP TO BATHROOM ONE PERSON ASSIST WITH FWW. SHE IS VERY HARD OF HEARING, SHE IS ABLE TO READ LIPS. SHE IS NOW UP TO RECLINER AND O.T. IS INTO WORK WITH HER
--- NOTE | 2020-03-14 10:20 | NUR ---
MORNING ASSESSMENT DUE. PT UP TO CHAIR. PT DENIES PAIN AND NAUSEA. PT DENIES PAIN AND NAUSEA AND STATES SHE WAS ABLE TO WORK WITH OCCUPATIONAL THERAPIST THIS MORNING. ASSESSMENT DONE. PT VERY HARD OF HEARING AND THEREFOR HAS DIFFICULTY FOLLOW SOME COMMANDS, PROXIMAL BLISTER TO LEFT LATERAL LOWER LEG HAS BURST, SKIN INTACT BUT REDDENED. PT ANTICIPATING AMBULATION. NO ADDITIONAL REQUESTS OR COMPLAINTS. CHAIR ALARM ON. CALL LIGHT WIHTIN REACH. PT EASILY VIEWED FROM NURSES STATION.
--- NOTE | 2020-03-14 10:30 | NUR ---
PATIENT RESTING IN CHAIR, EYES CLOSED. WOKE FOR VITALS. VITALS AND I&OS CHARTED. FACE AND HANDS WASHED. CALL LIGHT IN REACH.
--- NOTE | 2020-03-14 11:04 | NUR ---
PT UP TO AMBUATE WITH 1 PERSON ASSIST AND FWW IN [place] X1 LAP. PT TOLERATES WELL WITH NO REST BREAKS. PT BACK TO ROOM AND UP TO CHAIR. PT WORKING ON HER PHONE. CHAIR ALARM ON. CALL LIGHT WITHIN REACH. NO ADDITIONAL REQUESTS OR COMPLAINTS AT THIS TIME.
--- NOTE | 2020-03-14 12:32 | NUR ---
MEDICATION DUE. THIS RN TO ROOM. PT UP TO CHAIR. PT REPORTS FEELING "SORE." PT DECLINES TYLENOL. PT STATES SHE DOESN'T FEEL COMFORTABLE "IN THIS CHAIR." PT UP TO AMBULATE IN [place] X1 LAP WITH 1PERSON ASSIST AND FWW. PT TOLERATED WELL WITH NO REST BREAKS. PT BACK TO ROOM. NEW CHAIR PROVIDED. PT STATES "THIS CHAIR IS BETTER." PT WATCHING TV. NO ADDITIONAL REQUESTS OR COMPLAINTS. CALL LIGHT WITHIN REACH. CHAIR ALARM ON.
--- NOTE | 2020-03-14 13:40 | NUR ---
THIS RN TO ROOM TO CHECK ON PT. PT WORKING WITH PHYSICAL THERAPY. DENIES PAIN AND NAUSEA. NO REQUESTS OR COMPLAINTS.
--- NOTE | 2020-03-14 13:44 | NUR ---
PATIENT UP IN CHAIR, VITALS AND I&OS CHARTED. MILKA IN FOR PT. NO OTHE RNEEDS AT THIS TIME.
--- NOTE | 2020-03-14 14:14 | NUR ---
PT SLEEPING, WILL LOOK IN AGAIN LATER
--- NOTE | 2020-03-14 15:50 | NUR ---
PTS CHAIR ALARM SOUNDING. PT ATTEMPTING TO GET UP TO WALK ON HER OWN. PT CONFUSED AND WANTING TO "GO GET A MIRROR." MIRROW PROVIDED. WALKER PROVIDED. PT AMBULATES IN [place] X1 LAP WITH STATION DETECTIVE. PT BACK TO CHAIR. CHAIR ALARM IN PLACE. CALL LIGHT WITHIN REACH. PT DENIES ADDITIONAL REQUESTS OR COMPLAINTS AT THIS TIME.
--- NOTE | 2020-03-14 16:46 | NUR ---
PT IN TRANSITIONAL CARE PROGRAM FOR DECONDITIONING AFTER FALLS, RABDOMYOLYSIS AND ENCEPTHALOPHTHY. PT FORGETFUL THIS SHIFT, BED/CHAIR ALARM IN PLACE. 1PA FWW UP TO CHAIR, RESTROOM AND FOR AMBULATION. PHYSICAL THERAPY AND OCCUPATIONAL THERPAY INVOLVED. PT HAS GOOD APPITITE WITH MINCED MOIST DIET. PT VOIDING QUANTITY SUFFFIENT. PT USES CALL LIGHT INCONSISTANTLY.
--- NOTE | 2020-03-14 17:07 | NUR ---
MEDICATION DUE. PT CALL LIGHT ON. PT REPORTS HER DEPENDS IS WET. PT UP TO STAND. TONG CARE DONE. DEPENDS CHANGED. MEDICATION GIVEN. PT WATCHING TV. PT DENIES PAIN AND NAUSEA. NO ADDIITONAL REQUESTS OR COMPLAITNS AT THIS TIME. CALL LIGHT WITHIN REACH. CHAIR ALARM ON.
--- NOTE | 2020-03-14 17:55 | NUR ---
Medications reconciled
--- NOTE | 2020-03-14 19:20 | NUR ---
PT UP IN CHAIR, WATCHING TV. NO NEEDS AT THIS TIME. CALL LIGHT IN REACH, CHAIR ALARM ON.
--- NOTE | 2020-03-14 20:41 | NUR ---
VITALS AND I&OS DONE AND CHARTED. HELPED PT TO THE BATHROOM AND BACK TO BED. CLEANED THE CHAIR DUE TO INCONTINENCE OF URINE. CHANGED PT'S ATTEND AND WASHED HER OFF WITH BABYWIPES. BEDSIDE TABLE AND CALL LIGHT IN REACH. BED ALARM SET.
--- NOTE | 2020-03-14 21:04 | NUR ---
ASSESSMENT COMPLETED. LUNGS CLEAR. BOWEL TONES ACTIVE. A&O X4. BLE 2+ EDEMA. BLISTERS NOTED ON LEFT SHOULDER, FLANK AND LEG. SCATTERED ABRASIONS NOTED. SCHEDULED MEDS PROVIDED. NO OTHER NEEDS AT THIS TIME. CALL LIGHT IN REACH.
--- NOTE | 2020-03-14 23:28 | NUR ---
PT CALLS TO SAY SHE NEEDS HER BRIEFS CHANGED. UP TO BR, 1PA FWW, BACK TO BED. PT REPOSITIONED. NO OTHER NEEDS. CALL LIGHT IN REACH.
--- NOTE | 2020-03-15 00:43 | NUR ---
PT RESTING IN BED, EYES CLOSED. RR EVEN, UNLABORED. CALL LIGHT IN REACH.
--- NOTE | 2020-03-15 02:00 | NUR ---
PT RESTING IN BED, EYES CLOSED. RR EVEN, UNLABORED. CALL LIGHT IN REACH.
--- NOTE | 2020-03-15 03:06 | NUR ---
THIS RN IN ROOM TO ANSWER CALL LIGHT. PT REPORTS GETTING TANGLED IN SHEETS AND NEEDS HELP WITH REPOSITIONING. PT REPOSITIONED AND PILLOW PLACED UNDER RIGHT LATERAL PER PT REQUEST. NO FURTHER NEEDS, CALL LIGHT IN REACH.
--- NOTE | 2020-03-15 05:00 | NUR ---
PT RESTING IN BED, EYES CLOSED. RR EVEN, UNLABORED. BED ALARM ON. CALL LIGHT IN REACH.
--- NOTE | 2020-03-15 06:01 | NUR ---
PT SLEPT WELL THIS SHIFT. AMBULATING 1PA, FWW TO BR AND BACK TO BED. PT DENIES PAIN. BLISTERED INTACT OR COVERED. ABRASIONS NOTED. A&O X4. BLE 2+, UNCHANGED.
--- NOTE | 2020-03-15 06:02 | NUR ---
HELPED PT TO THE BATHROOM AND BACK TO BED WITH HER FWW. CHANGED HER TWO CHUCKS ON HER BED. CHANGED HER ATTENDS VERY WET WITH URINE. WIPED HER OFF WITH BABY WIPES. VITALS AND I&OS DONE AND CHARTED. BEDSIDE TABLE AND CALL LIGHT IN REACH. PT NEEDS NOTHING MORE AT THIS TIME.
--- NOTE | 2020-03-15 07:03 | NUR ---
report recevied form osmany laureano. PT RESTING IN BED. PT REPORTS SHE WAS ABLE TO SLEEP "A LITTLE" LAST NIGHT. PT ENCOURAGED TO DRINK PO FLUIDS. PT DENIES PAIN AND NAUSEA. NO ADDITIONAL REQUESTS OR COMPLAINTS AT THIS TIME.
--- NOTE | 2020-03-15 07:18 | NUR ---
HELPED PT WITH THE HEAD OF HER BED. LOWERED IT TO HER COMFORT. PT NEEDS NOTHING MORE AT THIS TIME.
--- NOTE | 2020-03-15 08:17 | NUR ---
MED REC COMPLETE
--- NOTE | 2020-03-15 08:35 | NUR ---
MORNING ASSESSMENT AND MEDICAITON DUE. PT UP TO CHAIR AND FINISHED WITH BREAKFAST. PT AGITATED AND HALLUCINATING, REPORTS "THEY ARE AFTER ME, THEY WANT TO KILL ME." "DID YOU SEE THAT CAT IN HERE, IT'S A SPIRIT CAT." STATES "I'M GOING TO GO FOR A WALK AND THEN COME BACK AND ." PT REORINTED TO PLACE AND SITUATION. ASSESSMENT DONE. VITALS TAKEN. MEDICATION GIVEN. NEWS PAPER PROVIDED. PT READING NEWS PAPER. CALL LIGHT WITHIN REACH. CHAIR ALARM ON.
--- NOTE | 2020-03-15 10:33 | NUR ---
THIS RN TO ROOM TO CHECK ON PT. PT WET, GOWN WET. TONG CARE DONE. DEPENDS CHANGED. FRESH GOWN IN PLACE. PT UP TO AMBULATE X1 LAP IN [place] WITH THIS RN, FWW AND GAIT BELT. PT BACK TO CHAIR. 7-UP AND CHAPSTICK PROVIDED PER PT REQUEST. CHAIR ALARM ON. CALL LIGHT WITHIN REACH.
--- NOTE | 2020-03-15 11:52 | NUR ---
THIS RN TO ROOM TO CHECK ON PT. PT WORKING WITH OCCUPATIONAL THERAPY, EATING LUNCH AND GETTING DRESSED. PT HAVING TROUBLE UNDERSTANDING SOME COMMUNICATIONS. PT LESS AGITATED AT THIS TIME AND COMPLIANT WITH CARES. MEDICATION GIVEN (SEE MAR). PT DENIES ADDITIONAL REQUESTS OR COMPLAINTS AT THIS TIME. CALL LIGHT WITHIN REACH.
--- NOTE | 2020-03-15 13:10 | NUR ---
PT GETTING UP OUT OF CHAIR. THIS RN TO ROOM. PT REPORTS SHE IS FEELING TIRED AND WANTS TO REST. PT GUIDED BACK TO CHAIR. NO ADDITIONAL REQUESTS OR COMPLAINTS. CALL LIGHT WITHIN REACH. CHAIR ALARM ON.
--- NOTE | 2020-03-15 14:34 | NUR ---
THIS RN TO ROOM TO CHECK ON PT. PT RESTING WITH EYES CLOSED IN AN AWAKARD POSITION. PT REPOSITIONED AND PROPPED UP WITH PILLOWS. RESIPRATIONS EVEN AND UNLABORED. CALL LIGHT WITHIN REACH. CHAIR ALARM ON. PT ALLOWED TO REST.
--- NOTE | 2020-03-15 15:02 | NUR ---
SET PATIENT UP FOR A SHOWER. RIGHT NOW PHYSICAL THERAPY IS WORKING WITH HER RIGHT NOW. PATIENT IS VERY CONFUSED TODAY. WE ARE GOING TO TRY TO GET HER IN.
--- NOTE | 2020-03-15 15:27 | NUR ---
REPORT RECIEVED FROM ELSY PÉREZ. PATIENT UP WALKING WITH PHYSICAL THERAPY 1PA AND FWW. PATIENT DENIES WANTING TO TAKE SHOWER TONIGHT. PATIENT SITTING IN CHAIR.
--- NOTE | 2020-03-15 16:57 | NUR ---
PATIENT SITTING UP TO CHAIR FOR DINNER, EVENING MEDICATIONS GIVEN.
--- NOTE | 2020-03-15 17:31 | NUR ---
REPORT RECEIVED FROM ELSY PINO. THIS RN RESUMING CARE OF PT. PT UP TO CHAIR AND FINISHED WITH DINNER. PT REQUESTS A SHOWER. ROLLER MAN TO BEDSIDE TO ASSIST PT WITH SHOWER. NO ADDITIONAL REQUESTS OR COMPLAINTS. CALL LIGHT WITHIN REACH.
--- NOTE | 2020-03-15 18:00 | NUR ---
THIS RN TO ROOM TO CHECK ON PT. PT RESTING WITH EYES CLOSED. RESPIRATIONS EVEN AND UNLABORED. PT POSITIONED WITH PILLOWS. CHAIR ALARM ON. PT ALLOWED TO REST.
--- NOTE | 2020-03-15 18:48 | NUR ---
PT IN TRANSITIONAL CARE PROGRAM FOR DECONDITIONING AFTER FALL AND RABDOMYOLYSIS. PT UPT O CHAIR FOR MOST OF THIS SHIFT. PT AGITATED IN MORNING AND HAVING HALLUCINATIONS, CALMED THROUGOUT THE DAY. PT KUP TO AMBULATE IN [place] MULTIPLE TIMES AND WITH PHYSICAL THERAPY. SHOWER THIS SHIFT. PT TOELRATING MICED MOIST DIET WITH GOOD APPTITIE. CARE CONFERENCE THIS SHIFT. PT VOIDING QUANTITY SUFFICIENT. PT USES CALL LIGHT INCONSISTANTLY. BED/CHAIR ALARM IN PLACE.
--- NOTE | 2020-03-15 19:05 | NUR ---
SO AROUND 1830 PATIENT WANTED TO TAKE A SHOWER. SO WE WALKED INTO THE SHOWER WITH HER WALKER. SHE WASHED HER HAIR AND I HELPED HER WASH HER BACK AND HER LEGS. AFTER HER SHOWER WAS DONE I HELPED HER GET HER NEW GOWN ON AND HER NEW SOCKS. NURSE CAME IN AND HELPED PUT HER TO BED WHILE I CLEANED UP THE TOWELS AND DRIED THE FLOOR.
--- NOTE | 2020-03-15 19:20 | NUR ---
PT RESTING IN BEED, EYES CLOSED. RR EVEN, UNLABORED. BED ALARM ON, CALL LIGHT IN REACH.
--- NOTE | 2020-03-15 20:55 | NUR ---
ASSESSMENT, VS AND I&O COMPLETED. PT VERY DROWSY. A&O ONLY TO PERSON AND PLACE. LUNGS CLEAR. BLE 2+EDEMA. CMS INTACT. BLISTERS ON LEFT SHOULDER, LEFT FLANK AND LLE OPEN TO AIR. SCATTERED BRUISING AND ABRASIONS NOTED. BOWEL TONES ACTIVE. SCHEDULED MEDS PROVIDED. NO OTHER NEEDS. CALL LIGHT IN REACH. BED ALARM ON.
--- NOTE | 2020-03-15 20:55 | NUR ---
VITALS DONE AND CHARTED. WITH THE HELP OF RN JORGE WE CHANGED HER ATTENDS AND GOWN. BEDSIDE TABLE AND CALL LIGHT IN REACH. GARBAGES EMPTIED.
--- NOTE | 2020-03-15 23:20 | NUR ---
PT RESTING IN BED, EYES CLOSED. RR EVEN, UNLABORED. BED ALARM ON, RAILS UP, CALL LIGHT IN REACH.
--- NOTE | 2020-03-16 00:03 | NUR ---
BED ALARM SOUNDING, PT FOUND TO BE TRYING TO GET OUT OF BED. 1PA, FWW TO BR AND BACK TO BED. PT ORIENTED TO PERSON, PLACE AND TIME. ICE WATER PROVIDED. NO OTHER NEEDS. CALL LIGHT IN REACH.
--- NOTE | 2020-03-16 04:39 | NUR ---
HELPED PT TO THE BATHROOM AND BACK TO BED WITH HER FWW. CHANGED HER ATTENDS INCONTINENT OF URINE. BED ALARM SET. BEDSIDE TABLE AND CALL LIGHT IN REACH. FRESH ICE WATER GIVEN.
--- NOTE | 2020-03-16 05:16 | NUR ---
PT SLEPT WELL LAST NIGHT. A&O X3. 1PA, FWW TO BSC IN BR. BLE 2+, UNCHANGED THIS SHIFT. BLISTERS ON LEFT SHOULDER, FLANK AND LEG HAVE ALL FLATTENED AND ARE OPEN TO AIR. SCATTERED BRUISING AND ABRASIONS NOTED. PT INCONTINENT OCCASSIONALLY, BRIEFS IN PLACE. PT TOLERATED MEDS WELL. VSS, UOS.
--- NOTE | 2020-03-16 07:50 | NUR ---
RECEIVED REPORT FROM JORGE CHIN. PT UP TO CHAIR AT THIS TIME. NO STATED CONCERNS AT THIS TIME
--- NOTE | 2020-03-16 08:40 | NUR ---
in pts room to give morning meds. pt has no complaints other than just wanting her meds.
--- NOTE | 2020-03-16 11:40 | NUR ---
PT BACK TO HER CHAIR AFTER WORKING WITHI PHYSICAL THERAPY THIS AM.
--- NOTE | 2020-03-16 12:30 | NUR ---
PATIENT UP IN CHAIR, APPEARS TO BE SLEEPING. SPOKE WITH STAFF, PATIENT SEEMS TO BE DOING WELL TODAY. CONTINUES TO WORK WITH THERAPY.
--- NOTE | 2020-03-16 13:55 | NUR ---
IN PTS ROOM TO GIVE MEDS. PT ABLE TO MEDS WELL. PT BACK TO BED AT THIS TIME TO GET SOME REST. PT HAS NO COMPLAINTS AT THIS TIME
--- NOTE | 2020-03-16 14:56 | NUR ---
PATIENT IS SLEEPING.
--- NOTE | 2020-03-16 19:00 | NUR ---
SHIFT REPORT RECEIVED FROM LOVE CHIN. PT RESTING IN BED, EYES CLOSED. RR EVEN, UNLABORED. BED ALARM ON, RAILS UP. CALL LIGHT IN REACH.
--- NOTE | 2020-03-16 20:19 | NUR ---
ASSESSMENT, VS AND I&O COMPLETED. PT DENIES PAIN. LUNGS CLEAR. BOWEL TONES ACTIVE. PT DECLINED STOOL SOFTNER MEDICATIONS. BLE 1+. BLISTERS ON LEFT SHOULD, FLANK AND LLE ARE DRY ADN OPEN TO AIR. SCATTERED ABRASIONS NOTED. PT REPOSITIONED. APPLE JUICE PROVIDED. NO OTHER NEEDS. CALL LIGHT IN REACH.
--- NOTE | 2020-03-16 20:30 | NUR ---
charge nurse rounding note: awake, watching tv, on transitional bed status, [place], reads lips, roseann c/o espitia or sob, fresh fluids and call light at hands reach, no requests.
--- NOTE | 2020-03-16 21:44 | NUR ---
pt turned her bed call light on, socks removed from her feet at her requets, no c/o pain, on room air,
--- NOTE | 2020-03-16 23:00 | NUR ---
PT RESITNG IN BED, EYES CLOSED. RR EVEN, UNLABORED. BED ALARM ON, RAILS UP. CALL LIGHT IN REACH.
--- NOTE | 2020-03-17 00:23 | NUR ---
PATIENT CALLED FOR ASSISTANCE TO AMBULATE TO BATHROOM, PATIENT HAD LARGE INCONTINENCE EPISODE, LINENS CHANGED, PARTIAL BED BATH GIVEN. PATIENT BACK IN BED, BELONGINGS AND CALL LIGHT WITHIN REACH, BED ALARM ON, NO FURTHER NEEDS AT THIS TIME.
--- NOTE | 2020-03-17 01:30 | NUR ---
PT CALLS TO ASK FOR HER PARKINSONS PILL. PT REORIENTED THAT SHE HAS ALREADY HAD HER MEDICATION TODAY. PT ASKS FOR ADVIL FOR LEG CRAMPS. PT OFFERED TYLENOL. PT DECLINES. PT ASKS FOR APPLE JUICE, PROVIDED BY DONNA HOLLOWAY.
--- NOTE | 2020-03-17 03:33 | NUR ---
PT CALLS TO HAVE BRIEF CHANGED. UP TO BSC IN BR, 1PA, FWW, BACK TO BED. PT REPOSITIONED. NO OTHER NEEDS AT THIS TIME. CALL LIGHT IN REACH.
--- NOTE | 2020-03-17 05:12 | NUR ---
PT SLEPT OFF AND ON LAST NIGHT. PT HAD SOME CONFUSION ABOUT A PERSON BEING IN HER ROOM. A&O TO ALL BUT TIME. PT USING BRIEFS AND A FWW, 1PA TO BSC IN BR. BLE EDEMA UNCHANGED. CMS INTACT. BLISTERS, BRUISING AND ABRASIONS UNCHANGED. PT COMPLAINED OF LEG CRAMPS BUT WENT RIGHT BACK TO SLEEP. VSS, UOS.
--- NOTE | 2020-03-17 06:25 | NUR ---
PATIENT BED ALARM GOING OFF, PATIENT TRYING TO GET OUT OF BED. PATIENT STATES "I NEED TO LEAVE NOW" PATIENT REORIENTED. PATIENT ASSISTED TO CHANGE BREIF AND GOWN, DRESSED IN CLOTHES FROM HOME. AMBULATED TO BEDSIDE RECLINER, CHAIR ALARM ON. PATIENT BELONGINGS AND CALL LIGHT IN REACH. NO FURTHER NEEDS AT THIS TIME.
--- NOTE | 2020-03-17 07:21 | NUR ---
RECEIVED REPORT FROM JORGE CHIN. PT UP TO THE CHAIR.
--- NOTE | 2020-03-17 07:51 | NUR ---
IN PTS ROOM TO GIVE MORNING MEDS. PT STILL UP TO THE CHAIR AT THIS TIME.
--- NOTE | 2020-03-17 08:08 | NUR ---
DURING PTS ASSESSMENT THIS RN NOTICED THAT PT HAS A BLANCHABLE RED SPOT AT THE TOP OF HER COCCYX. THIS RN PLACED AN ALLEVEN DRESSING ON THE SITE TO ALLEVIATE PRESSURE
--- NOTE | 2020-03-17 12:19 | NUR ---
THIS RN SET-UP ASSISSTED PT TO THE CHAIR FOR LUNCH. PT TOLERATED WELL AND WAS AGREEABLE. LIGHTS TURNED ON AND WINDOW SHADE OPENED TO ALLOW NATURAL LIGHT INTO THE ROOM
--- NOTE | 2020-03-17 19:27 | NUR ---
REPORT RECEIVED FROM DAY SHIFT RN. PT SITTING IN RECLINER, ALERT AND ORIENTED. UP TO BR WITH PRODUCT DEVELOPMENT. DENIES NEEDS. WHITE BOARD UPDATED. CALL LIGHT IN REACH.
--- NOTE | 2020-03-17 20:13 | NUR ---
PT UP TO BR WITH SBA AND FWW. GAIT STEADY. INCONTINENT OF URINE. FRESH ATTENDS PLACED. PT VOID IN TOILET ALSO, ABLE TO DO OWN TONG CARE. TO SINK TO DO PM CARES. IN BED AT THIS TIME. FRESH WATER AND JUICE PROVIDED. BED ALARM ON. CALL LIGHT IN REACH.
--- NOTE | 2020-03-17 20:55 | NUR ---
PATIENT WASHED HANDS AND FACE AND DID PM/ORAL CARE.
--- NOTE | 2020-03-17 21:40 | NUR ---
EVENING ASSESSMENT COMPLETE. PT REFUSED SCHEDULED STOOL SOFTENERS THIS EVENING. DENIES PAIN. BLE EDEMA NOTED. PT DENIES FURTHER NEEDS. BED ALARM FOR SAFETY. CALL LIGHT IN REACH.
--- NOTE | 2020-03-17 23:48 | NUR ---
PT RESTING IN BED WITH EYES CLOSED, NAD.
--- NOTE | 2020-03-18 03:15 | NUR ---
PT RESTING IN BED WITH EYES CLOSED, RR EVEN AND UNLABORED. BED ALARM ON. CALL LIGHT IN REACH.
--- NOTE | 2020-03-18 04:52 | NUR ---
Pt called to use the restroom, Sara and I assisted pt to the restroom, pt was already wet, changed pts breif, changed pads on bed, assisted pt back to bed.
--- NOTE | 2020-03-18 06:28 | NUR ---
PT SLEPT WELL. ALERT AND ORIENTED. USES CALL LIGHT. SBA WITH FWW. PT INCONTINENT OR URINE AT TIMES. VOID QS. BLE EDEMA. PT EXTREMELY [place], CLIP BOARD AND PAPER IN ROOM TO COMMUNICATE.
--- NOTE | 2020-03-18 07:19 | NUR ---
RECEIVED REPORT FROM OCTAVIO CHIN. PT IN BED AND APPEARS TO BE SLEEPING WITH RESPIRATIONS NOTED AT THIS TIME
--- NOTE | 2020-03-18 08:00 | NUR ---
IN PTS ROOM TO GIVE MORNING MEDS, GET PT OUT OF BED AND UP TO CHAIR, ALSO TO SETUP ASSIST PT TO GET DRESSED FOR THE DAY. PT COMPLIANT WITH ALL TASKS AT THIS TIME.
--- NOTE | 2020-03-18 12:06 | NUR ---
IN PTS ROOM TO GIVE MID-DAY MED. PT HAS NO COMPLAINTS AT THIS TIME
--- NOTE | 2020-03-18 19:50 | NUR ---
REPORT RECEIVED FROM DAY SHIFT RN. PT SITTING IN RECLINER, ALERT AND ORIENTED. DENIES NEEDS. WHITE BOARD UPDATED. CALL LIGTH IN REACH.
--- NOTE | 2020-03-18 20:27 | NUR ---
PATIENT IN BED. BED ALRM ON FOR SAFETY.
--- NOTE | 2020-03-18 20:48 | NUR ---
EVENING ASSESSMENT COMPLETE. PT REFUSED SCHEDULED STOOL SOFTENERS, REPORTS IT IS HER NORMAL NOT TO HAVE BM EVERYDAY. EXTRA BLANKET PROVIDED. PT DENIES FURTHER NEEDS. CALL LIGHT IN REACH. BED ALARM ON.
--- NOTE | 2020-03-18 20:49 | NUR ---
PATIENT WASHED HANDS AND FACE AND PM ORAL CARE.
--- NOTE | 2020-03-19 00:10 | NUR ---
CALL LIGHT ANSWERED. PT INCONTINENT OF URINE REPORTING "I NEED TO BE CHANGED". UP TO BR WITH 1PA AND FWW. CLEAN BRIEF PLACED. PT AT THE SINK TO DO PM CARES. BACK TO BED, GAIT STEADY. LEANDRA WELL. NO FURTHER NEEDS. BED ALARM ON. CALL LIGHT IN REACH.
--- NOTE | 2020-03-19 03:44 | NUR ---
PT RESTING IN BED WITH EYES CLOSED, NAD.
--- NOTE | 2020-03-19 05:30 | NUR ---
PT RESTING IN BED WITH EYES CLOSED, RR EVEN AND UNLABORED. BED ALARM ON. CALL LIGHT IN REACH.
--- NOTE | 2020-03-19 06:15 | NUR ---
JEWEL OSORIO CHANGED PATIENT'S ATTENDS AND REPOSITIONED PATIENT.
--- NOTE | 2020-03-19 07:25 | NUR ---
RECEIVED REPORT FROM OCTAVIO CHIN. PT APPEARS TO BE RESTING COMFORTABLY IN BED. CALL LIGHT WITHIN REACH AND RESPIRATIONS NOTED
--- NOTE | 2020-03-19 07:46 | NUR ---
in pts room to give morning meds and do assessment. pt awake and laying in bed. this rn set-up assissted pt to get dressed and then up to the chair for breakfast
--- NOTE | 2020-03-19 11:45 | NUR ---
SPOKE WITH PATIENT IN ROOM. SHE IS UP IN CHAIR. COMMUNICATION THROUGH WRITING MY MASK PREVENTS LIP READING. DISCUSSED PROBABLE DISCHARGE TOMORROW. SHE STATES SHE IS READY, SHE THOUGHT SHE MIGHT GO TODAY. EXPLAINED THAT THERAPY WANTS TO SEE HER AGAIN AND DR WILL DISCHARGE IN THE AM. SHE STATES SHE WILL TELL HER SISTER. SHE STATES SHE WILL BE PICKING HER UP AT DISCHARGE. PATIENT THINKS SHE MIGHT HIRE HELP AT HOME SOON. SHE FEELS SHE IS OK TO GO HOME ALONE. WILL CONTINUE TO FOLLOW PATIENT.
--- NOTE | 2020-03-19 14:04 | NUR ---
PT was hard of hearing but I was able to listen to her. I shared a bible verse with her that she could read and wrote some notes to her. She welcomed a prayer.
--- NOTE | 2020-03-19 15:04 | NUR ---
PATIENT IS IN HER CHAIR, PATIENT IS READY TO GO HOME. SHE WANTED TO GO ON A WALK, PATIENT ATE ALL HER LUNCH
--- NOTE | 2020-03-19 15:55 | NUR ---
IN PTS ROOM TO TAKE PT FOR A WALK. PT COMPLIANT AND WALKED ONE LAP AROUND THE UNIT
--- NOTE | 2020-03-19 17:37 | NUR ---
IN PTS ROOM TO GIVE PT HER EVENING MED. PT UP AND WALKING AROUND HER ROOM AT THIS TIME. PT NEEDED ASSISSTANCE GETTING HER PAD CHANGED IN HER ATTENDS.
--- NOTE | 2020-03-19 19:49 | NUR ---
REPORT RECEIVED FROM DAY SHIFT RN. PT SITTING IN RECLINER WITH EYES CLOSED, NAD. CHAIR ALARM IN PLACE. CALL LIGHT IN REACH. WHITE BOARD UPDATED.
--- NOTE | 2020-03-19 19:58 | NUR ---
CALL LIGHT ANSWERED. CHANGED GOWN FROM DAY CLOTHES. USED THE BATHROOM. WASHED FACE AND HANDS. BRUSHED TEETH. PATIENT IS IN BED NOW. ICE WATER REFILLED. BED ALARM ON FOR SAFETY.
--- NOTE | 2020-03-19 21:09 | NUR ---
EVENING ASSESSMENT COMPLETE. PT REFUSED SCHEDULED STOOL SOFTENERS. BM 03/19/20. DENIES PAIN OR NAUSEA. EXTRA BLANKET GIVEN. FRESH LIQUIDS PROVIDED. NO FURTHER NEEDS. CALL LIGHT IN REACH. BED ALARM FOR SAFETY.
--- NOTE | 2020-03-19 23:40 | NUR ---
PT RESTING IN BED WITH EYES CLOSED, NAD.
--- NOTE | 2020-03-20 03:06 | NUR ---
CALL LIGHT ANSWERED. PT STATES "I NEED A CHANGE". INCONTINENT OF URINE. TO BR WITH SBA AND FWW TO VOID. PT REQUESTING SHOWER. ELECTROMECHANICAL ASSEMBLER IN TO ASSIST. LINENS CHANGED. ALLEVYN REPLACED ON INTER GLUTEAL CLEFT. SEVERAL INTACT WATER FILLED BLISTERS NOTED. PT BACK TO BED, LEANDRA WELL. VERY APPRECIATIVE OF SHOWER. WARM BLANKET PROVIDED. BED ALARM FOR SAFETY.
--- NOTE | 2020-03-20 07:10 | NUR ---
BEDSIDE HANDOFF REPORT RECEIVED FROM SUPERVISOR POLISHING RN. PT SLEEPING, LEFT UNDISTURBED.
--- NOTE | 2020-03-20 07:45 | NUR ---
PT ASSISTED TO BATHROOM, SBA WITH FWW. PT VOIDED, ATTENDS CHANGED. PT ASSISTED TO CHAIR, PT DRESSED FOR THE DAY. PT AWAITING BREAKFAST. PT DENIES OTHER NEEDS AT THIS TIME.
--- NOTE | 2020-03-20 08:20 | NUR ---
PATIENT SITTING UP IN CHAIR. PATIENT'S BREAKFAST ORDERED. CALL LIGHT WITHIN REACH. NO OTHER NEEDS AT THIS TIME
--- NOTE | 2020-03-20 08:55 | NUR ---
PT SITTING IN CHAIR. PT COMPLETED WITH BREAKFAST, TOLERATED WELL. PT ALERT AND ORIENTED. PT DENIES PAIN. LUNG SOUNDS CLEAR, ON ROOM AIR, DENIES SOB. BOWEL TONES ACTIVE. PT WITH TRACE EDEMA TO BLE, CMS INTACT. PT WITHOUT IV ACCESS. PT ASKING ABOUT DISCHARGE, DISCUSSED WITH PT. PT DENIES OTHER NEEDS AT THIS TIME.
--- NOTE | 2020-03-20 09:22 | NUR ---
CALL LIGHT ANSWERED. PATIENT SITTING UP IN CHAIR. PATIENT USES THE BATHROOM. ONE PERSON ASSISTING WITH WALKER. PATIENT'S HANDS AND FACE WASHED. PATIENT BACKS TO CHAIR. VITAL SIGNS AND I&O DONE. CALL LIGHT WITHIN REACH. NO OTHER NEEDS AT THIS TIME
--- NOTE | 2020-03-20 10:00 | NUR ---
In and spokew jesus Lazo. She is able to hear part of my converstion today. I wrote several question when she could not understand. She cont. to insist on going home to her apartment. Her sister will pick her up. Violet feels she is much improved and states she was able to walk alone yesterday. Feels she is safe to go home and denies needs. Sister, Leah, will assist her at home.
--- NOTE | 2020-03-20 11:19 | NUR ---
PATIENT SITTING UP IN CHAIR. PATIENT'S LUNCH ORDERED. CALL LIGHT WITHIN REACH. NO OTHER NEEDS AT THIS TIME
--- NOTE | 2020-03-20 12:30 | NUR ---
PT COMPLETED WITH EATING LUNCH. PT DENIES OTHER NEEDS AT THIS TIME.
--- NOTE | 2020-03-20 13:01 | NUR ---
PATIENT SITTING UP IN CHAIR. PATIENT USES THE BATHROOM. ONE PERSON ASSISTING WITH WALKER. PATIENT'S ATTENDS CHANGED. PATIENT BACKS TO CHAIR. I&O DONE. CALL LIGHT WITHIN REACH. NO OTHER NEEDS AT THIS TIME
--- NOTE | 2020-03-20 16:43 | NUR ---
DISCHARGE INSTRUCTIONS COMPLETED WITH PT. PT DENIES QUESTIONS. DISCUSSED HOME SAFETY AND FALL PREVETION, SUGGESTED KEEPING IN CELL PHONE WITH HER OR TO LOOK INTO A [employer]TON. PT GOING TO STAY FOR DINNER, ASSISTED TO ORDER. PT DENIES OTHER NEEDS AT THIS TIME.
--- NOTE | 2020-03-20 17:48 | NUR ---
PATIENT SITTING UP IN CHAIR. SISTER IN ROOM. VITAL SIGNS AND I&O DONE. CALL LIGHT WITHIN REACH. NO OTHER NEEDS AT THIS TIME
== END 2020-03-20 17:50 | disposition home or self-care (01) | DRG 557 ==
LOC: MS 20:44
PROVIDERS: ADMIT Student in an Organized Health Care Education/Training Program
DX: M62.82 Rhabdomyolysis (principal); G93.41 Metabolic encephalopathy; G20 Parkinson's disease; Z79.899 Other long term (current) drug therapy
CPT/HCPCS: 97110; 97116; 97162; 97165; 97535

== ENCOUNTER 2020-08-17 12:47 | Inpatient (IN) | payer MEDICARE ==
[~2020-08-17] VITALS: Ht 167.6 cm; Wt 69.9 kg
--- NOTE | 2020-08-17 13:51 | EKG ---
[facility] [address] [facility] [place] [address] Signed Normal sinus rhythm with sinus arrhythmia Possible Left atrial enlargement Left anterior fascicular block Prolonged QT Abnormal ECG When compared with ECG of 09-MAR-2020 19:34, No significant change was found Confirmed by CASSANDRA CASTILLO MD ([id number]) on 08/17/2020 1:51:19 PM Electronically Signed By: CASSANDRA CASTILLO MD 08/17/20 1351 PATIENT NAME: STEVIE DOWLING Electrocardiogram DATE OF : 38 PHYSICIAN: CASSANDRA CASTILLO MD REPORT #: [id number] REPORT IS CONFIDENTIAL AND NOT TO BE RELEASED WITHOUT AUTHORIZATION
[2020-08-17] MEDS ORDERED: DOXEPIN HCL10 MG PO (14:27)
--- NOTE | 2020-08-17 17:30 | NUR ---
PATIENT ADMITTED TO CCU FROM ER VIA STRETCHER FOR MET. ENCEPHALOPATHY, POSSIBLE SEPSIS, AND PARKINSONS. PT WAS FOUND DOWN AT HOME ON THE GROUND, AND WAS LAST SEEN ON THURSDAY PER FAMILY. PATIENT IS INCOHERENT AT THIS TIME, AND SWINGING AT STAFF SAYING, "GET OUT OF HERE! GET OUT OF HERE!" PATIENT MOVED OVER TO CCU BED WITH 4 PERSON ASSIST. PATIENT THEN ASSESSED, AND NOTED TO HAVE A LARGE OPEN ABRASION ON LEFT HIP THAT APPEARS TO BE FROM LAYING ON THE GROUND. ABRASION ALSO NOTED TO LEFT SHOULDER. PICTURES OF HIP TAKEN AND PLACED IN CHART. ALLEVYN DRESSING PLACED ON HIP. SOARES PLACED PER MD ORDER. PT TOLERATED POORLY, AND AGAIN 4 STAFF WERE UTILIZED TO PLACE THIS. PATIENT WAS YELLING OUT, "LARS GET DOWN HERE, LARS GET DOWN HERE!" AND THEN "GET THE NURSE, GET THE NURSE!" PATIENT REMAINS DISORIENTED TO ALL. WHEN ASKING PATIENT HER NAME, SHE STATES SOMETHING THAT IS IRRELEVANT TO THE QUESTION. PT DOES SAY SHE IS HARD OF HEARING. IVF STARTED AT 125 ML/HR INTO A NEW IV PLACED IN RIGHT HAND, DUE TO OTHER IV BEING IN LEFT AC AREA. PT'S EYES AND FACE ALSO APPEARS SWOLLEN. HR IN THE 80s, SINUS. WILL CONTINUE TO MONITOR CLOSELY. PT IS NPO.
--- NOTE | 2020-08-17 19:13 | NUR ---
DR. CASTILLO CALLED AND UPDATED ON PT'S URINE OUTPUT WHICH WAS ONLY 175 ML SINCE BEING IN THE HOSPITAL. ORDER REC'D FOR 1 L NS OVER AN HOUR. REPORT TO MACHINE PLUG SHAPER.
--- NOTE | 2020-08-17 20:52 | NUR ---
PATIENT IS MORE ALERT NOW. ABLE TO READ SOME COMMINUCATION WRITTEN TO HER ON PAPER. GLASSES FOUND IN PURSE WERE CLEANED AND PROVIDED. PATIENT IS ORIENTED TO SELF, SURROUNDINGS AND THE FALL THAT LED TO HER ADMISSION. PATIENT ALLOWED BLOOD CULTURES TO BE DRAWN. IV FLUIDS PER ORDER, SITE WNL. ORAL CARE DONE AND LIP BALM APPLIED. PATIENT REQUESTING SIPS OF WATER. HOB TO 90 DEGREES AND PATIENT COUGHS WITH SMALL SIPS. PROVIDED ORAL SWAB INSTEAD. REPOSITION TO PROVIDED PILLOWS UNDER HIPS AND RIGHT ARM. ALYVENS IN PLACE X2 ON LEFT SHOULDER AND HIP. VS STABLE. SOARES IN PLACE, URINE IS [place] IN COLOR. MINIMAL URINE OUTPUT. PATIENT DEMONSTATES ABLITY TO USE CALL LIGHT WHICH IS PLACED IN HER LAP. LIGHTS DIMMED. ENCOURAGED SLEEP.
--- NOTE | 2020-08-17 21:43 | NUR ---
PATIENT RECEIVED IV BOLUS. DISCUSSED WITH EPHARMACY TO HAVE ORDER RENEWED FOR SCANNING.
--- NOTE | 2020-08-17 21:54 | NUR ---
PATIENT INSISTENT ABOUT TAKING HER [facility] MEDS. DISCUSSED WITH MD, PATIENT CAN TAKE HER OWN MEDS WHEN APPROVED BY PHARMACY.
--- NOTE | 2020-08-17 23:30 | NUR ---
PATIENT REPOSITIONED IN BED. PATIENT IS RESTLESS AND DOES NOT WANT BLANKETS ON HER AT THIS TIME. ORAL TEMP WNL. BLANKETS REMOVED AND ONLY SHEET IN PLACE. PATIENT IS INSISTANT ON DRINKING WATER. ENCOURAGED HER TO WAIT FOR A SPEECH EVALUATION AND ASSURED HER SHE WAS RECEIVING HYDRATION FROM IV FLUIDS. PATIENT DOES NOT APPEAR TO UNDERSTAND THIS BUT IS MORE CALM.
--- NOTE | 2020-08-18 00:30 | NUR ---
PATIENT CONTINUES TO REST ON AND OFF. VS STABLE. URINE OUTPUT IS AVERAGING 20 MLS/HR. IV FLUIDS PER ORDER, SITE WNL. DIFFICULT TO ASSESS ORIENTATION DUE TO PATIENT'S HEARING LOSS. ENCOURAGED PATIENT TO REST.
--- NOTE | 2020-08-18 02:50 | NUR ---
DISCUSSED PATIENT'S LOW URINE OUTPUT WITH . 500 ML NS BOLUS ORDERED AND STARTED. PATIENT APPEARS TO BE SLEEPING SOUNDLY AT THIS TIME. VS STABLE.
--- NOTE | 2020-08-18 04:10 | NUR ---
FLUID BOLUS FINISHED. URINE OUTPU 30 MLS THE LAST HOUR. PATIENT IS SLEEPING SOUNDLY. VS STABLE.
--- NOTE | 2020-08-18 06:18 | NUR ---
PATIENT REPOSITIONED TO HER RIGHT SIDE. PATIENT OPENS HER EYES BUT DOES NOT FOCUS ON STAFF OR SAY ANYTHING. DIFFICULT TO ASSESS DUE TO HEARING LOSS. VS STABLE. URINE OUTPUT HAS IMPROVED. IV FLUIDS PER ORDER, SITE WNL.
--- NOTE | 2020-08-18 06:34 | NUR ---
UPDATED ON URINE OUTPUT AND MENTAL STATUS
--- NOTE | 2020-08-18 07:30 | NUR ---
REPORT RECIEVED. DR. CASTILLO HERE TO SEE PATIENT.
--- NOTE | 2020-08-18 07:47 | NUR ---
this rn recived report and will be assuming care of pt at this time. pt appears to be resting this am.
--- NOTE | 2020-08-18 08:10 | NUR ---
OOB TO CHAIR WITH TOTAL ASSIST. PO MED GIVEN WITH PUDDING ANS SIP OF WATER. SLIGHT COUGH NOTED WHEN TAKING WATER. ASSESSMENT DONE. PATIEN IS [place] AND NOT ABLE TO FOLLOW COMMANDS AT THIS TIME. SOARES CATH IS PATENT WITH [place] URINE NOTED.
--- NOTE | 2020-08-18 08:40 | NUR ---
PATIENT MOVED TO CHAIR. VITAL SIGNS DOCUMENTED. CALL LIGHT WITHIN REACH. NO FUTHER NEEDS AT THIS TIME.
--- NOTE | 2020-08-18 09:20 | NUR ---
SIPS OF WATER GIVEN. NO COUGH NOTED. REMAINS IN CHAIR. PATIENT IS MORE ALERT. ASKING FOR MILKSHAKE.
--- NOTE | 2020-08-18 09:53 | NUR ---
HELPED PATIENT DRINK ENSURE. SITTING IN BED. CALL LIGHT WITHIN REACH AND NO FUTHER NEEDS AT THIS TIME.
--- NOTE | 2020-08-18 10:00 | NUR ---
DR. CASTILLO HERE TO SEE PATIENT. PATIENT IS ALERT, ORIENTED. ASKING FOR MORE FOOD. ORDERS RECIEVED TO INCREASE DIET. DC MONITOR. THESE DONE. PATIENT REMAINS IN CHAIR. FANY TO BE DC'D PER ORDERS.
--- NOTE | 2020-08-18 10:45 | NUR ---
SITTING UP IN CHAIR EATING SOUP,ORANGE JUICE,YOGART. IS ABLE TO FEED SELF. NO COUGHING NOTED WHEN SWALLOWING.
--- NOTE | 2020-08-18 11:00 | NUR ---
BACK TO BED WITH ASSIST. MOVING VERY SLOWLY.
--- NOTE | 2020-08-18 11:30 | NUR ---
FANY ROWLEY AND EMPTIED FOR 100 ML OF CLEAR YELLOW URINE. WILL BE TRANSFERRED TO MEDICAL FLOOR LATER TODAY. PATIENT SISTER IS IN ROOM.
--- NOTE | 2020-08-18 12:45 | NUR ---
REPORT GIVEN, TO MED-SURG VIA CHAIR. PATIENT HAS BEEN TAKING PO WELL. IVF TO SL. BOTH IV SITES IRRIGATED WITH NS AND ARE PATENT.
--- NOTE | 2020-08-18 14:45 | NUR ---
PT TRANSFERED FROM CCU. VSS. PT WITH ALRGE LOOSE BM, ASSISTED TO BSC, PERICARE COMPLETED. PT ON ROOM AIR, LUNG SOUNDS CLEAR. PT ALERT/ORIENTED, VERY HARD OF HEARING BUT COMMUNICATES WELL WITH WRITING. CMS INTACT. IV SALINE LOCKED. PT SITTING IN CHAIR. ASSISTED TO ORDER DINNER. PT DENIES OTHER NEEDS AT THIS TIME.
--- NOTE | 2020-08-18 16:00 | NUR ---
PT GIVEN SINEMET PER ORDER. PT DENIES OTHER NEEDS AT THIS TIME.
--- NOTE | 2020-08-18 18:38 | NUR ---
PT TRANSFERED FROM CCU. PT ON ROOM AIR, LUNG SOUND CLEAR. PT VERY HARD OF HEARING, USING WRITING TO COMMUNICATE WITH PT, PT ALERT AND ORIENTED. PT TOLERATING DIET. IV SALINE LOCKED. PT WITH LARGE BM, VOIDING.
--- NOTE | 2020-08-18 19:57 | NUR ---
PT CALLED, ASKING IF SHE HOP SORTER GET A SHOWER, EXPAINED TO PT THAT WE MAY NOT HAVE TIME TO BE IN RIGHTAWAY BUT I WILL TALK TO THE NURSE ABOUT GETTING HER UP, PT C/O OVER HAVING A RASH FEELING ON HER SKIN, WILL BE BACK IN SHORTLY TO GET VITALS
--- NOTE | 2020-08-18 20:19 | NUR ---
Up to bsc, was incontinent and voided in container, Incontinence of urine and small bm in attends, skin care done. allevyn in place.. [place] 2PA, very stiff LE, edema 2+ LE bilat. no c/o pain at this time, 2 sl patent. tolerating liquids fine, no emesis. call light at hands reach
--- NOTE | 2020-08-18 20:20 | NUR ---
IN RM TO ASST RN GETTING PT BACK TO BED, HEAVY TWO PERSON ASST, BEDSIDE TABLE IN PLACE, CALL LIGHT IN HAND, NO FURTHER NEEDS AT THIS TIME
--- NOTE | 2020-08-18 21:35 | NUR ---
PT C/O FOOT PAIN, BUT PAIN WAS GONE WHEN I CHECKED AND ASKED PT WHICH FOOT, RN WILL BE INFORMED
--- NOTE | 2020-08-19 00:05 | NUR ---
HEARS LOUD NOISE COMING FROM PTS ROOM, PT RESTING, HAD A LOUD MOANING EPISODE, RESATING, EYES CLOSED, UNKNOWN IF NIGHTMARES OF INVOLUNTARY LOUD MOANING. HOB ELEVATED, FALL AND ASPIRATION PRECAUTIONS INPLACE, DOES REACHES OVER AND SWALLOWS FLUID W/OPROBLEMS AT THIS TIME. CALL LIGHT AT BEDSIDE. LEGS ELEVATED
--- NOTE | 2020-08-19 03:41 | NUR ---
Resting, hob elevated to her comofrt, on room air, no distress. call light at hands reach
--- NOTE | 2020-08-19 04:01 | NUR ---
IN PT RN, PT CALLED STATES FEET ARE STICKING TO HER COVERS AND THAT HER FEET ARE BURNING, RN HAS BEEN INFORMED, PT IS DRY AT THIS TIME, NO FURTHER NEEDS AT THIS TIME
--- NOTE | 2020-08-19 06:37 | NUR ---
Pt has slept this shift. On room air, lungs clear and dim at bases. Allevyn to shoulder and buttocks. Incontinent of urine and had smear of bm earlier in shift. 2PA to BSC, very stiff LE and weak, involuntary hand tremors present, able to reach for water jug. No c/o pain. Takes Sinemet. Coop. Alert to self and place. SL patent
--- NOTE | 2020-08-19 07:10 | NUR ---
BEDSIDE HANDOFF REPORT RECEIVED FROM MULTIMEDIA COORDINATOR RN. PT SLEEPING, LEFT UNDISTURBED.
--- NOTE | 2020-08-19 09:00 | NUR ---
PT SITTING IN CHAIR. PT ALERT AND ORIENTED, EXTREMELY HARD OF HEARING, USED PEN AND PAPER TO COMMUNICATE ASSESSMENT. PT ON ROOM AIR, LUNG SOUNDS CLEAR. BOWEL TONES ACTIVE, TOLERATING DIET. PT WITH GENERALIZED EDEMA, CMS INTACT. IV ROCEPHIN INFUSING. PT REQUESTING TO SHOWER TODAY. PT DENIES OTHER NEEDS AT THIS TIME.
--- NOTE | 2020-08-19 09:04 | NUR ---
MEETING WITH THIS AM, DISCUSSED PHYSCIAL THERAPY EVALUATION NEED. ORDER GIVEN
--- NOTE | 2020-08-19 11:52 | NUR ---
PT MAX ASSIST TO SHOWER CHAIR, PT INCONTINENT OF URINE, BOAT HOIST OPERATOR ASSISTED WITH SHOWER AND PT MAX ASSIST BACK TO CHAIR. SISTER AT BEDSIDE, UPDATED ON PT CONDITION. DISCUSSED DISCHARGE PLAN WITH SISTER, DISCUSSED PT SAFETY BEING DISCHARGED BACK TO APARTMENT AND TO CONSIDER ASSISTED LIVING.
--- NOTE | 2020-08-19 15:00 | NUR ---
PT SITTING IN CHAIR. AFTERNOON ASSESSMENT COMPLETED, NO ACUTE CHANGES. PT STOOD WITH FWW, MAX ASSIST, ATTENDS CHANGED AND PERICARE COMPLETED. PT ABLE TO STAND 2 TIMES.
--- NOTE | 2020-08-19 15:41 | NUR ---
THIS MORNING WE TRANSFERED PATIENT FROM HER BED TO HER CHAIR. HAD THE CHAIR CLOSE TO HER BED. PATIENT ATE HER BREAKFAST AND LUNCH UP IN HER CHAIR.
--- NOTE | 2020-08-19 16:43 | NUR ---
PT REQUESTING TO USE RESTROOM, MAX ASSIST TO BSC, VOIDED. ASSISTED BACK TO CHAIR.
--- NOTE | 2020-08-19 18:15 | NUR ---
PT ALERT/ORIENTED, VERY HARD OF HEARING. PT ON ROOM AIR, LUNG SOUNDS CLEAR. PT TOLERATING DIET. PT 2-3PA WITH FWW, STAND PIVOT, VERY STIFF. PT VOIDING QS. DISCUSSED WITH SISTER THAT PT MOBILITY IS A BARRIER TO DISCHARGE, PLAN FOR CASE MANAGEMENT TO ASSIST WITH DC PLAN.
--- NOTE | 2020-08-19 20:49 | NUR ---
In bed, room air, lungs clear but dim at bases. no c/o pain. IV LR x1 bag started, 2 sl patent. attends inplace, was incontinent, barrier cream applied. very stiff generalized, edema 2+ LE. coop with assessment. [place] hearing aids inplace plus writing board at hands reach
--- NOTE | 2020-08-19 21:05 | NUR ---
WARM BLANKET PROVIDED.
--- NOTE | 2020-08-19 23:18 | NUR ---
RESTING, EYES CLOSED, HOB ELEVATED, INVOLKUNTARY TREMORS OF HANDS PRESENT. FALL AND APIRATION RISK PRECAUTIONS IN PLACE, TOLERATES LIQUIDS WELL. CALL LIGHT AT HANDS REACH
--- NOTE | 2020-08-20 00:53 | NUR ---
Resting, eyes closed, hob elevated, call light at hands reach
--- NOTE | 2020-08-20 03:45 | NUR ---
MUSIC THERAPIST PUBLIC SCHOOL SYSTEMROSALIE GRUBER, ELSY [place] AND THIS HUMAN RESOURCE INTERNSHIP HELPED PATIENT USE THE BEDSIDE COMMODE. CHANGED WHITE GREG AND GOWN. PATIENT IS INCONTINENT. PATIENT BACK IN BED. BED ALARM ON FOR SAFETY.
--- NOTE | 2020-08-20 04:05 | NUR ---
resting, on room air, call light at bedside, gou up to bsc with 2pa not long ago
--- NOTE | 2020-08-20 05:48 | NUR ---
pT HAS SLEPT, IN ROOM AIR. NO C/O SOB WITH EXERTION, UP TO BSC X1, VOIDED, STIFF LOWER EXTREMITIES 2-3PA, BACK TO BED, PT HAS INVOLUNTARY ARM TREMORS. BRUISING HEALING. TOLERATING FLUIDS WELL, FALL AND ASPIRATION PRECAUTIONS IN PLACE, RECEIVED 1L IVF PER ORDERS.
--- NOTE | 2020-08-20 07:10 | NUR ---
REPORT RECVIEVED FROM RN AMARILYS. PT APPEARS TO BE SLEEPING.
--- NOTE | 2020-08-20 08:34 | NUR ---
PT VERY TAKOTNA, USED PAPER AT BEDSIDE. PT STATES SHE ORNDERED BREAKFST AND IS HUNGRY, ADVISED IT SHOULD BE HERE SHORTLY. DENIES FURTHER CONCERNS.
--- NOTE | 2020-08-20 09:37 | NUR ---
ADMINISTERED MORNING MEDS. REMINDED PT TO KEEP ARM STRAIGHT FOR AB INFUSION. WILL CHANGE PT SOON HER AB IS COMPLETE PER HER REQUEST.
--- NOTE | 2020-08-20 10:31 | NUR ---
PT ASSISTED UP TO CHAIR WITH FWW AND 2 STAFF. PT UNABLE TO HELP HERSELF AT ALL. COULD NOT STAND UP STRAIGHT OR MOVE HER FEET MORE THAN A 1\2 INCH OR SO. UNABLE TO MOVE HER LEGS BY HERSELF IN BED.
--- NOTE | 2020-08-20 10:50 | NUR ---
PATIENT SITTING UP IN CHAIR. LINENS CHANGED BY RN. CALL LIGHT IN REACH. NO FURTHER NEEDS AT THIS TIME.
--- NOTE | 2020-08-20 12:22 | NUR ---
PT REMAINS UP IN CHAIR TALKING TO SISTER IN ROOM. CALL LIGHT IN REACH.
--- NOTE | 2020-08-20 13:10 | NUR ---
SPOKE WITH PATIENT SISTER LIBAN SHE WAS LEAVING THE ROOM. SHE STATES THEY HAVE BEEN TRYING TO GET PATIENT TO MOVE FROM HER APARTMENT TO ASSISTED LIVING. SHE STATES SHE AND SISTER MAYNOR TRY TO HELP THEY CAN BUT THEY WORK AND HELP OTHER FAMILY MEMBERS. NEITHER HAVE POA AND DO NOT WANT THAT RESPONSIBILITY. THEY STATE PATIENT IS RESISTENT TO THEIR SUGGESTIONS, IS "VERY VERY STUBBORN". SHE STATES PATIENT DOES NOT WANT TO PAY THE PRICES FOR ASSISTED LIVING. DISCUSSED THAT PATIENT NEEDS 2-3 ASSIST AND SHOULD DO REHAB STAY IF SHE WANTS TO RETURN HOME, SHE STATES "GOOD LUCK GETTING HER TO AGREE. SHE HAS BEEN TO [place] BEFORE". SPOKE WITH PATIENT IN ROOM. PATIENT IS EXTREMELY HARD OF HEARING AND HAD TO WRITE EVERYTHING DOWN. DISCUSSED THAT THE DR THINGS SHE NEEDS A REHAB STAY IF SHE WANTS TO GO HOME. SHE DOESN'T LIKE THIS BUT UNDERSTANDS. SHE DOES NOT REMEMBER FALLING. DISCUSSED WITH HER THAT PERHAPS IT IS TIME TO MOVE TO ASSISTED LIVING SO IF THAT HAPPENS SHE HAS SOMEONE AROUND. SHE STATES SHE "CAN'T AFFORD THIS". DISCUSSED THAT SHE CAN ASK THE STATE FOR HELP, SHE STATES "I DON'T WANT THEM TAKING MY MONEY AND TELLING ME WHAT TO DO". DISCUSSED SHE SHOULD RECONSIDER AT SOME POINT, AND THAT THEY ONLY TAKE WHAT THEY NEED FOR HER TO HAVE THE CARE SHE NEEDS. WE DISCUSSED THIS BEST I COULD WITH WRITING. SHE IS AGREEABLE TO SNF, STATES SHE WANTS TO STAY IN [place] AND HAS BEEN TO [place] BEFORE. I TOLD HER I WILL FIND OUT IF THEY HAVE ROOM AND LET HER KNOW. SHE IS CONCERNED SHE WILL HAVE NO CLOTHES. I DISCUSSED I WILL CALL HER SISTER TO SEE IF SHE CAN BRING SOME CLOTHES IN. I ASSURRED HER I WOULD CALL AND LET HER KNOW. CALLED SISTER LIBAN. DICUSSED THIS, SHE STATES SHE WILL BRING CLOTHES UP BY 9AM TOMORROW. STAFF UPDATED.
--- NOTE | 2020-08-20 13:57 | NUR ---
CLINICALS FAXED TO [facility], FAX CONFIRMATION RECEIVED. MESSAGE LEFT ON ADMITTING COORDINATORS PHONE [phone].
--- NOTE | 2020-08-20 13:59 | NUR ---
PATIENT TO BSC AND BACK TO CHAIR, 2PA PIVOT. TONG CARE DONE. FRESH WATER GIVEN. CALL LIGHT IN REACH. NO FURTHER NEEDS AT THIS TIME.
--- NOTE | 2020-08-20 14:18 | NUR ---
PT CALLED FOR PEN THE ONE SHE HAS WONT WRITE ON HER CHECKS AND SHE IS PAYING BILLS THAT HER SISTER BROUGHT IN .
--- NOTE | 2020-08-20 14:37 | NUR ---
ASSISTED PT TO STAND AT CHAIRSIDE WITH JOHNATHAN JARQUIN. PT OBJECTED AND WOULD NOT STAND WHOLE MINUTE. STATES SHE DOESN'T HAVE HER STRENGTH BACK YET. EXPLAINED THAT SHE WILL HAVE TO DO EXERCISES TO GET IT BACK BUT SHE REFUSED.
--- NOTE | 2020-08-20 15:33 | NUR ---
RECEIVED CALL FROM SARAH BE. SHE RECEIVED PACKET, HAS GIVEN IT TO NURSES. STATES THEY WILL LET US KNOW, MOST LIKELY ADMIT TOMORROW.
--- NOTE | 2020-08-20 16:00 | NUR ---
PT REMAINS SITTING UP IN CHAIR, DENIES WANTING TO GO TO BED YET. DOING A CROSSWORD. PT ABLE TO READ LIPS QUITE WELL.
[2020-08-20] MEDS ORDERED: DOXEPIN HCL10 MG PO (16:47)
--- NOTE | 2020-08-20 18:16 | NUR ---
PATIENT HAD INCONT EPISODE. PATIENT STOOD, 2PA, TONG CARE DONE. NEW ATTENDS IN PLACE. PATIENT NOW SITTING IN CHAIR. CALL LIGHT IN REACH. NO FURTHER NEEDS AT THIS TIME.
--- NOTE | 2020-08-20 19:10 | NUR ---
REPORT RECEIVED FROM MICHEL CHIN. PT SITTING IN CHAIR, A+O. PT STATES NO NEEDS AT THIS TIME, CALL LIGHT IN REACH, WILL CONT TO MONITOR.
--- NOTE | 2020-08-20 20:15 | NUR ---
BOATING SAFETY OFFICERROSALIE GRUBER, COUNTERSINKERLUIS FELIPE VENTURA AND THIS BROOMCORN THRESHER HELPED PATIENT USE THE BEDSIDE COMMODE. PATIENT IS INCONTINENT. PATIENT IS NOW LYING IN BED. BED ALARM ON FOR SAFETY.
--- NOTE | 2020-08-20 20:32 | NUR ---
SCHEDULED MEDICATIONS ADMINISTERED, VITALS AND I/O'S COMPLETE, ASSESSMENT COMPLETE. PT IN BED, STATES NO PAIN OR DISCOMFORT AT THIS TIME. ORAL CARE COMPLETE. IV FLUSHED WNL. WATER REFRESHED. CALL LIGHT IN REACH, WILL CONTINUE TO MONITOR.
--- NOTE | 2020-08-20 22:30 | NUR ---
REPOSITIONED IN BED, ADJUSTED LIGHTS FOR PATIENT. PT RESTFUL IN BED, STATES NO OTHER NEEDS. CALL LIGHT IN REACH.
--- NOTE | 2020-08-21 00:46 | NUR ---
ROUNDED ON PATIENT, RESTING IN BED WITH EYES CLOSED, BREATHING EVEN AND UNLABORED. IN VIEW OF NURSES STATION, NO APPARENT NEEDS. WILL CONT TO MONITOR.
--- NOTE | 2020-08-21 01:15 | NUR ---
NOTED PT RESTLESS FROM NURSES STATION, PT REQUESTS TO USE BSC, UP WITH 3P ASSIST. PT INCONTINENT X2. TONG CARE DONE. REDNESS NOTED TO L HIP, L ARM, BARRIER CREAM APPLIED TO GROIN. BACK TO BED WITH PILLOWS UNDER L HIP. CALL LIGHT IN REACH, WILL CONT TO MONITOR.
--- NOTE | 2020-08-21 01:39 | NUR ---
LONE LEAD LINEMANROSALIE GRUBER, PRIMARY RN [place] AND THIS LEAD SOFTWARE ENGINEER HELPED PATIENT TO USE THE BEDSIDE COMMODE. PATIENT IS BACK IN BED. CALL LIGHT WITHIN REACH.
--- NOTE | 2020-08-21 02:59 | NUR ---
CHECKED ON PATIENT, RESTING IN BED WITH EYES CLOSED. EVEN BREATHING, UNLABORED. NO APPARENT NEEDS. WILL CONT TO MONITOR
--- NOTE | 2020-08-21 03:50 | NUR ---
PT CALLING OUT TO NURSES STATION, STATES NEEDS HEAD ELEVATED IN BED. WARM WASHCLOTH PROVIDED FOR FACE PER PT REQUEST. PT STATES NO PAIN, NO OTHER NEEDS AT THIS TIME. WILL CONT TO MONITOR.
--- NOTE | 2020-08-21 04:59 | NUR ---
ROUNDED ON PATIENT, RESTING IN BED W EYES CLOSED. BREATHING EVEN AND UNLABORED. WILL CONT TO MONITOR
--- NOTE | 2020-08-21 05:39 | NUR ---
MEDICATIONS ADMINISTERED, ROLL CHANGED WITH ASSOCIATE PROFESSOR OF CRIMINAL JUSTICE SINTA, INCONTINENCE X2. VITALS AND I/O'S COMPLETE. PT STATES NO OTHER NEEDS
--- NOTE | 2020-08-21 06:11 | NUR ---
PT STIFF LOWER EXTREMITIES, 2-3PA TO BSC OR ROLL CHANGE D/T URINE INCONTINENCE. 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 EXTREMELY ALGAACIQ, USED PEN & PAPER TO ENGAGE. A+O, ON ROOM AIR, VSS. SALINE LOCKED IV WNL. 2+ EDEMA TO BLE. R KNEE BLISTER HEALING. CURTAIN OPEN, ONLY RANDOMLY UTILIZES CALL LIGHT. VERY PLEASANT, EXPRESSES THANKS TO STAFF FOR ASSISTANCE.
--- NOTE | 2020-08-21 07:43 | NUR ---
BEDSIDE REPORT...PT RESTING IN BED EYES CLOSED, RR EVEN, NO DISTRESS, PT BODY POSITION RELAXED. SHE APPEARS TO BE SLEEPING AT THIS TIME.
--- NOTE | 2020-08-21 10:00 | NUR ---
Notified by Chani at [facility], they did not request auth for pt's managed care yesterday. They have submitted today. They will notify us when they recieve auth. This may be tomorrow or the next day. Charge nurse and Dr. López notified, pt will not dc today. Violet updated.
--- NOTE | 2020-08-21 10:24 | NUR ---
PT UP TO RECLINER MINIMAL ASSIST IMPROVED STRENGTH FROM YESTURDAY, SHE WAS 2 PERSON MAX ASSIST. WORKING WITH [employer]Ben[employer] NOW
--- NOTE | 2020-08-21 10:49 | NUR ---
PATIENT SITTING UP IN CHAIR. PATIENT SAID SHOWER AFTER LUNCH. CALL LIGHT IN REACH. NO FURTHER NEEDS AT THIS TIME.
--- NOTE | 2020-08-21 11:19 | NUR ---
AMBULATING IN HALLS WITH PHYSCIAL THERAPY
--- NOTE | 2020-08-21 12:50 | NUR ---
ROUNDED ON PATIENT, RESTING IN BED WITH EYES CLOSED. BREATHING EVEN AND UNLABORED. NO APPARENT NEEDS OR DISTRESS AT THIS TIME. CALL LIGHT IN REACH.
--- NOTE | 2020-08-21 12:55 | NUR ---
PT SITTING UP IN RECLINER ALERT. NO DISTRESS NOTED.
--- NOTE | 2020-08-21 15:46 | NUR ---
PATIENT UP TO SHOWER AND BACK TO CHAIR, 2PA FWW. PATIENT ASSISTED IN SHOWER. TONG CARE, SKIN CARE, SHAMPOO DONE. NEW ATTENDS AND GOWN PROVIDED. THIS BOOK COVERER SAW SKIN TEAR ON RIGHT KNEE, NOTIFIED ELSY LIGHT. RN SAID SHE KNEW IT WAS THERE AND IT HAD BEEN CHARTED. LINENS CHANGED. CALL LIGHT IN REACH. NO FURTHER NEEDS AT THIS TIME.
--- NOTE | 2020-08-21 17:26 | NUR ---
PT HAS BEEN AMBULATING 2 PERSON MINIMAL ASSIST FOR GAIT, GAIT IS VERY UNSTEADY. PLAN TO DISCHARGE TO [facility] SN[facility]. SHE HAS BEEN UP TO SHOWER THIS AFTERNOON, CONSUMING 50% OR MORE EACH MEAL. WORKED WITH THERAPIES TODAY, AMBULATING FULL LAP OF M/S UNIT WITH TWO PHYSICAL THERAPY. PT IS VERY HARD OF HEARING PAPER IN ROOM TO WRITE NOTES TO HER THIS WORKS VERY WELL. SHE HAS A SKIN TEAR NOTED TO HER RIGHT KNEE OPEN TO AIR.
--- NOTE | 2020-08-21 17:46 | NUR ---
PATIENT IN CHAIR FOR DINNER. PATIENT NOW IN CHAIR TALKING ON PHONE. ATTENDS CHANGED. TONG CARE DONE. CALL LIGHT IN REACH. NO FURTHER NEEDS AT THIS TIME.
--- NOTE | 2020-08-21 17:47 | NUR ---
PT SITTING UP IN RECLINER EATING DINNER.
--- NOTE | 2020-08-21 19:20 | NUR ---
REPORT RECEIVED FROM NADEGE CHIN. PATIENT SITTING UP IN CHAIR, MADE PLAN WITH PT TO MOVE TO BED. NO OTHER NEEDS AT THIS TIME, USING PAPER AND PEN TO DISCUSS PLAN OF CARE/DISCHARGE. CALL LIGHT IN REACH, WILL CONT TO MONITOR.
--- NOTE | 2020-08-21 20:04 | NUR ---
MEDICATION ADMINISTERED, VITALS AND I/O'S COMPLETE, ASSESSMENT COMPLETE. PT TRANSFERED TO BED WITH 2PA AND FWW. INCONTINENT X2, TONG CARE DONE W BARRIER CREAM. BACITRACIN OINTMENT APPLIED TO R KNEE SKIN TEAR. PT PROVIDED WITH WARM WASHCLOTH, WARM BLANKETS, WATER REFRESHED. LUNGS CLEAR, HRR, BOWELS ACTIVE. EDEMA 2+ IN BLE. SKIN EXAMINED FOR REDNESS. PT STATES NO OTHER NEEDS AT THIS TIME, CALL LIGHT IN REACH.
--- NOTE | 2020-08-21 22:00 | NUR ---
ROUNDED ON PATIENT, RESTING IN BED WATCHING TV. PT REPORTS NO NEEDS AT THIS TIME, ENJOYING A COOKIE. CALL LIGHT IN REACH.
--- NOTE | 2020-08-22 01:34 | NUR ---
CHANGED PATIENT'S INCONTINENT ATTENDS.
--- NOTE | 2020-08-22 01:50 | NUR ---
ROUNDED ON PATIENT, AWAKE IN BED, ASSESSMENT COMPLETE. PT EXPRESSES CONCERN ABOUT DISCHARGE TO SNF, REASSURED AND DISCUSSED W HER. NO OTHER NEEDS AT THIS TIME. CALL LIGHT IN REACH.
--- NOTE | 2020-08-22 03:50 | NUR ---
ROUNDED ON PATIENT, RESTING IN BED WITH EYES CLOSED, BREATHING EVEN AND UNLABORED. NO APPARENT NEEDS. CALL LIGHT IN REACH.
--- NOTE | 2020-08-22 05:15 | NUR ---
MEDICATION ADMINISTERED, PT REQUESTS TO TAKE EARLY SHE TAKES IT AT 0530 EVERY MORNING AT HOME. VITALS AND I/O'S COMPLETE. ATTENDS CHANGED FROM INCONTINENCE. REPOSITIONED IN BED, CALL LIGHT IN REACH.
--- NOTE | 2020-08-22 07:37 | NUR ---
MORNING REPORT RECIEVED FROM SILO OPERATOR RN.
--- NOTE | 2020-08-22 08:10 | NUR ---
PATIENT SLEEPING. WHITE BOARD UPDATED. CALL LIGHT WITHIN REACH. NO OTHER NEEDS AT THIS TIME
--- NOTE | 2020-08-22 09:30 | NUR ---
MORNING ASSESSMENT DONE, PATIENT IS AWAKE AND EATING BREAKFAST.
--- NOTE | 2020-08-22 09:33 | NUR ---
PATIENT RESTING IN BED. RN IN ROOM. VITAL SIGNS AND I&O DONE. SETS UP TABLE FOR BREAKFAST. ICE WATER GIVEN. CALL LIGHT WITHIN REACH. NO OTHER NEEDS AT THIS TIME
--- NOTE | 2020-08-22 10:16 | NUR ---
REPORT CALLED TO CELIA CHIN. PATIENT IS DRESSED AND AWAITING TRANSPORT.
--- NOTE | 2020-08-22 12:48 | NUR ---
PT LEAVING IN , SHE SEEMED ALITLE LOST, SEEMED TO NOT QUITE KNOW WHAT TO SAY OR HOW EITHER. GAVE ENCOURAGEMENT WILL FOLLOW
== END 2020-08-22 10:45 | DRG 557 ==
LOC: ED 12:47 → CCU 16:30 → MS 16:30
PROVIDERS: ADMIT Internal Medicine; ATTEND Internal Medicine
DX: M62.82 Rhabdomyolysis (principal); G93.41 Metabolic encephalopathy; Z20.828 Contact with and (suspected) exposure to other viral communicable diseases; G20 Parkinson's disease; H91.90 Unspecified hearing loss, unspecified ear; R26.89 Other abnormalities of gait and mobility; R29.6 Repeated falls; E86.0 Dehydration; R13.12 Dysphagia, oropharyngeal phase; R82.71 Bacteriuria; Z79.899 Other long term (current) drug therapy
CPT/HCPCS: 36415; 51701; 70450; 71045; 80048; 80053; 81001; 82550; 83605; 83615; 83735; 84100; 84484; 85025; 87040; 87077; 87088; 87184; 87186; 92610; 93005; 93010; 97116; 97166; 97530; 99285-25; C9113; C9803; G0480; J0696; J1650; J7030; J7121; U0003

== ENCOUNTER 2021-09-23 12:07 | Emergency (ER) | payer MEDICARE ==
[~2021-09-23] VITALS: Ht 167.6 cm; Wt 68.0 kg
[~2021-09-23 12:07] MED LIST changes: +DOXEPIN HCL10 MG PO
[2021-09-23] MEDS ORDERED: DONEPEZIL HCL10 MG PO (12:21)
== END 2021-09-23 14:45 | disposition home or self-care (01) ==
LOC: ED 12:07
DX: S80.11XA Contusion of right lower leg, initial encounter (principal); R30.0 Dysuria; G20 Parkinson's disease; Z79.899 Other long term (current) drug therapy; W19.XXXA Unspecified fall, initial encounter
CPT/HCPCS: 73552; 81001; 99284-25

== ENCOUNTER 2021-09-25 10:09 | Emergency (ER) | payer OTHER, MEDICARE ==
[~2021-09-25] VITALS: Ht 167.6 cm; Wt 68.0 kg
[~2021-09-25 10:09] MED LIST changes: +DONEPEZIL HCL10 MG PO
--- OUTSIDE RECORDS SUMMARY | 2021-09-25 10:16 | XMS ---
PreManage Notification: STEVIE DOWLING Security Chief Dispatcher Events No recent Security Events currently on file CRITERIA MET - [facility] - 2 Visits in 30 Days CARE PROVIDERS [facility] 09/23/2021-[facility]: [phone]: Unknown Cathy has no Care Guidelines for this patient. [place] VISIT COUNT (12 MO.) 2 [facility] TOTAL 2 NOTE: Visits indicate total known visits. ED/UCC VISIT TRACKING (12 MO.) 09/25/2021 10:09 [facility] [place] TYPE: Emergency COMPLAINT: - FALL 09/23/2021 12:07 [facility] [place] TYPE: Emergency COMPLAINT: - FALL INPATIENT VISIT TRACKING (12 MO.) No inpatient visits to display in this time frame [email or web address]
--- NOTE | 2021-09-26 12:51 | EKG ---
[facility] [address] [place] [address] Signed Sinus rhythm with premature supraventricular complexes Left axis deviation Incomplete right bundle branch block Nonspecific T wave abnormality Abnormal ECG When compared with ECG of 17-AUG-2020 13:18, premature supraventricular complexes are now present Left anterior fascicular block is no longer present Confirmed by MARI ESTEVEZ DO ([id number]) on 09/26/2021 12:51:20 PM Electronically Signed By: MARI ESTEVEZ DO 09/26/21 1251 PATIENT NAME: STEVIE DOWLING SARI Electrocardiogram DATE OF : 38 PHYSICIAN: MARI ESTEVEZ DO REPORT #: [id number] REPORT IS CONFIDENTIAL AND NOT TO BE RELEASED WITHOUT AUTHORIZATION
== END 2021-09-25 16:23 | disposition home or self-care (01) ==
LOC: ED 10:09
DX: G20 Parkinson's disease (principal); F02.80 Dementia in other diseases classified elsewhere, unspecified severity, without behavioral disturbance, psychotic disturbance, mood disturbance, and anxiety; Z04.3 Encounter for examination and observation following other accident; Z20.822 Contact with and (suspected) exposure to COVID-19; Z79.899 Other long term (current) drug therapy; W18.30XA Fall on same level, unspecified, initial encounter
CPT/HCPCS: 51701; 70450; 71045; 80048; 81001; 82553; 83880; 84484; 85025; 93005; 93010; 97162; 99285-25; C9803; J7040; U0003

== ENCOUNTER 2022-02-25 15:13 | Inpatient (IN) | payer MEDICARE ==
[~2022-02-25] VITALS: Ht 167.6 cm; Wt 74.0 kg
--- NOTE | 2022-02-25 19:10 | NUR ---
PATIENT ADMITTED TO CCU AT 1857 FOR RHABDO, RAFAELA, MET. ENCEPHALOPATY AND HYPOTHERMIA. PT HAS A TEMP PROBE SOARES WHICH IS READY 96.9 UPON INITIAL ASSESSMENT. PT IS ON ROOM AIR, SP02 IS 99-100% AND RR IS 12-13. INITIAL BP IS 128/75 (87). PT IS NON RESPONSIVE, BUT DOES OPEN RIGHT EYE WHEN WE MOVED HER FROM STRETCHER TO CCU BED. PT IS NOW SNORING. PUPILS ARE EQUAL AND REACTIVE TO LIGHT. SKIN ANTERIORLY IS BRIGHT RED, WITH MULTIPLE ABRASIONS, SKIN TEARS AND GENERALIZED RUG RASH/BURN AREAS. PT HAS LACERATION AREA TO ARMS BILATERALLY. PICTURES TO BE TAKEN. WOUNDS TO BE CLEANED AND WRAPPED. MINIMAL URINE NOTED TO SOARES CATHETER AND WILL BE CLOSELY WATCHED. PT'S CHIN IS VERY SCABBED OVER AND ABRADED. DRY JUNK IN PT'S MOUTH. PT DOES HAVE EDEMA TO LOWER LEGS, 1-2+. PT HAS A HISTORY OF BEING ADMITTED IN AUGUST OF 2020 FOR SIMILAR PRESENTATION AND WAS ALSO FOUND DOWN ON THE GROUND FOR A NUMBER OF DAYS THEN. REPORT TO FACILITY MAINTENANCE WORKER.
--- NOTE | 2022-02-25 20:00 | NUR ---
BEARPAW WARMINIG BLANKET PLACED PT 97.3 SOARES PROB TEMP AT THIS TIME. PT RESTING QUIELTY IN BED, HER V/S ARE STABLE IVF INFUSING. NO NEW CONCERNS, NOTIFIED OF LATEST LACTIC OF 3.1, SHE SAID UNLESS LARGE JUMP NO NEED NOTIFY JUST MONITOR.
--- NOTE | 2022-02-25 20:53 | NUR ---
INTO PT ROOM NOTED MAP OF 51 ORDERED 500ML BOLUS AT THIS TIME, THEN BACK TO MAINTENANCE FLUID CURRENTLY ORDERED. NEXT B/P AND MAP STABLE MAP 77
--- NOTE | 2022-02-25 20:59 | NUR ---
CLARIFIED WITH WIL PAYNE THAT PT SINEMET CAN BE CRUSHED, SHE SAID YES THE REGULAR TABS OF 25-100 CAN BE CRUSHED, NOTIFIED SHE GAVE ORDER TO PLACE NGT TO ADMINISTER CRUSHED SINEMET VIA NGT. WILL PROCEED WITH ORDERS.
--- NOTE | 2022-02-25 22:02 | NUR ---
NOTIFIED OF PT TEMP NOW 99.6, BEAR WARMER AND REMOVED EXTRA BLANKETS. ALSO NOTIFIED THAT PT HAS HAD SOME LOW B/P AND LOW MAPS, NEW BOLUS ORDER FOR 500ML AT 999ML/HR, AT THIS TIME. PT NOTED TO HAVE GENERALIZED EDEMA NOTED MORE TO BLE, LUNGS SOUNDS COARSE AND MOIST, PT OCCASIONALLY HAS MILD COUGH, NGT CXRAY FOR PLACEMENT COMPLETE, LOOKED AT SHE FELT OK TO USE MAY ADVANCE 2 INCHES AT THIS TIME.
--- NOTE | 2022-02-25 23:28 | NUR ---
BC JUST DRAWN FOR LABS, AND LACTIC DRAWN PER PROTOCOL AT THIS TIME. PT RESTING BACK IN BED EYES CLOSED SNORING NOTED, V/S STABLE. 19ML URINE YELLOW CLEAR AT THIS TIME.
--- NOTE | 2022-02-26 00:04 | NUR ---
BED BATH COMPLETE, WILL ALLOW PT TO REST BEFORE WOUND CARE, V/S STABLE PT NOTED TO BE SNORING.
--- NOTE | 2022-02-26 02:32 | NUR ---
PT RESTING IN BED EYES CLOSED RR REGULAR, V/S STABLE. MAP 68. TEMP 99.1, NO NEW CONCERNS AT THIS TIME
--- NOTE | 2022-02-26 04:17 | NUR ---
WOUND CARE AND PHOTOS TAKEN, PT TOLERATED WELL. SHE DID FLENCH WITH WOUND CLEANSING AT HER KNEES, AND THEN SETTLED BACK TO SNORING. NOTED ELEVATION IN B/P AND HEART RATE WHILE CLEANSING WOUNDS WELL. SHE SHUT HER MOUTH TIGHT ON ORAL SPONGE DURING ORAL CARE, PT DID NOT FOLLOW DIRECTION TO OPEN MOUTH WHEN ASKED, RN WAITED FOR PT TO RETURN TO SNORING AND PT'S MOUTH RELAXED ALLOWING FOR ORAL CARE SPONGE TO BE REMOVED. NO NEW CONCERNS AT THIS TIME.
--- NOTE | 2022-02-26 06:48 | EKG ---
[facility] [address] [place] [id number] Signed Normal sinus rhythm Right atrial enlargement Pulmonary disease pattern Incomplete right bundle branch block Left anterior fascicular block Minimal voltage criteria for LVH, may be normal variant ( Vivek product ) Abnormal ECG No previous ECGs available Confirmed by CASSANDRA CASTILLO MD ([id number]) on 02/26/2022 6:47:51 AM Electronically Signed By: CASSANDRA CASTILLO MD 02/26/22 0648 PATIENT NAME: STEVIE DOWLING Electrocardiogram DATE OF : 38 PHYSICIAN: CASSANDRA CASTILLO MD REPORT #: [id number] REPORT IS CONFIDENTIAL AND NOT TO BE RELEASED WITHOUT AUTHORIZATION
--- NOTE | 2022-02-26 06:52 | NUR ---
ORAL CARE AND SUCTIONING PROVIDED. PT GRIMACED WITH SUCTIONING AND SHUT HER MOUTH. SHE WOULD NOT OPEN BACK UP. FOR FURTHER ORAL CARE AT THIS TIME. NO NEW CONCERNS, PT IS MORE RESPONSIVE TO CARE THIS AM.
--- NOTE | 2022-02-26 07:32 | NUR ---
REPORT RECIEVED, CARE OF PT ASSUMED AT THIS TIME. PT RESTING IN BED. GRIMACING, NOT RESPONSIVE TO VOICE BUT GRIMACING WITH TOUCH. IV FLUIDS INFUSING. WILL CONTINUE TO CLOSELY MONITOR.
--- NOTE | 2022-02-26 07:50 | NUR ---
DR CASTILLO IN ROOM TO ASSESS PT. NO NEW ORDERS AT THIS TIME.
--- NOTE | 2022-02-26 09:06 | NUR ---
Received a call from Dr. Nina Loomis's office from [facility]. Dr. Loomis just wanted us to know pt should go to placement as she should not live alone. Updated Vicki, every admission we attempt to place this pt. We have gone as far as having her family in for an intervention and pt always ends up refusing. We will again attempt to place her, but cannot force her.
--- NOTE | 2022-02-26 09:11 | NUR ---
Attempted to see pt. Raciel Lundberg working with pt, pt remains obtunded. I will attemp to call family.
--- NOTE | 2022-02-26 09:23 | NUR ---
MEDICATION ADMINISTRATION AND ASSESSMENT COMPLETED. PT REMAINS OBTUNDED. RESPONSIVE TO PAIN. SNORING, LUNGS SOUND CLAEAR AND DIMINISHED IN THE BASES. PT EDEMATOUS IN ALL EXTREMITIES. PULSES STRONG. NG FLUSHES WELL. BOWEL TONES ACTIVE. BLOOD PRESSURES SOFT ( SEE VITAL SIGNS) BUT MAPS MAINTIANED ABOVE 65. URINE OUTPUT REMAINS ADEQUATE. IV FLUIDS AND ABX INFUSING. WILL CONTINUE TO MONITOR.
--- NOTE | 2022-02-26 09:36 | NUR ---
PT SISTER IN ROOM AT THIS TIME. UPDATED ON PLAN OF CARE.
--- NOTE | 2022-02-26 11:22 | NUR ---
BED BATH COMPLETED. PT OPENED EYES IN RESPONSE TO PAIN. BUT UNABLE TO VERABLIZE PAIN. PT HAS NON PRODUCTIVE COUGH. LUNGS SOUND CLEAR AND DIM. BOWEL TONES ACTIVE. SMALL BM NOTED. PERICARE AND SOARES CARE COMPLETED. PT TEARFUL, LIMBS RIGID. GIVEN PRN PAIN MEDICATION. PT TILTED ON TO RIGHT SIDE, CALL LIGHT WITHIN REACH. WILL CONTINUE TO MONITOR.
--- NOTE | 2022-02-26 12:50 | NUR ---
PT RESTING WITH EYES CLOSED. BREATHING EVEN AND UNLABORED. SPO2 = 96%. WILL CONTINUE TO MONITOR.
--- NOTE | 2022-02-26 14:27 | NUR ---
repostioned pt with pillows under right hip. Pt opening eyes and making sounds but remains unable to answer questions. IV fluids continue to infuse. will continue to monitor.
--- NOTE | 2022-02-26 17:00 | NUR ---
ASSESSMENT COMPLETED. PT GIVEN PRN PAIN MEDICATION BEFORE REPOSITIONING. REPLACED PILLOW CASES AND DRAW SHEET AND FLOATED BOTH HIPS ON PILLOWS. EDEMA IN LOWER EXTREMITIES HAS DECREASED SLIGHTLY. PT'S EYES OPEN AND TEARS IN EYES DURING ADLS. ORAL CARE PERFORMED. IV FLUIDS CONTINUE TO INFUSE. WILL CONTINUE TO MONITOR.
--- NOTE | 2022-02-26 17:56 | NUR ---
medications reconciled using pharmacy records
--- NOTE | 2022-02-26 18:38 | NUR ---
PT moaning. opening eyes. asked if she is in pain pt stated yes. prn pain medication administered at this time.
--- NOTE | 2022-02-26 20:00 | NUR ---
PT MIGUELECE INTO VISIT AT THIS TIME, SHE SAT AT BEDSIDE ON PORTABLE CHAIR AND TALKED TO PT FOR 10MIN, THEN SAID GOODBYE. PT REMAINS NON VERBAL AND HAS NOT OPENED EYES THIS SHIFT TO STIMULATION, VERBAL AND LIGHT TOUCH TO SHOULDER.
--- NOTE | 2022-02-26 22:09 | NUR ---
PT RESTING IN BED NOTED TO HAVE MILD SHIVER, WARM BLANKET PROVIDED, ASSESS PAIN NON-VERBAL SCALE 4/10, FENTANYL 25MCG IV PRN GIVEN AT THIS TIME, WILL MONITOR FOR PT COMFORT. NO OTHER CONCERNS AT THIS TIME.
--- NOTE | 2022-02-27 00:09 | NUR ---
PT NOTED TO HAVE MILD TREMBLE, PT OPENED EYES TO THIS RN VOICE, WHEN ASKED "ARE YOU HAVING PAIN" PT NODDED SLIGHTLY AND FURROWED BROW, SHE ATTEMPTED TO TALK BUT WAS NOT UNDERSTANDABLE, MUTTER. PT ADMINISTERED 25MCG OF IV FENTANYL PRN FOR PAIN 4/10 PER NONVERBAL PAIN SCALE.
--- NOTE | 2022-02-27 00:20 | NUR ---
PT RESTING IN BED RELAXED POSITION, NO TREMORS NOTED, NO DISTRESS NOTED ASSESSMENT COMPLETE. V/S STABLE, GOOD URINE OUT VIA SOARES. PT REPOSITIONED. PT OPENED EYES, THIS RN ATTEMPTED TO REORIENT TO PLACE, TIME EVENT. PT NOT VERBAL AT THIS TIME, APPEARED TO SLIGHTLY SMILE THEN CLOSED EYES AND SNORING NOTED.
--- NOTE | 2022-02-27 03:03 | NUR ---
PT RESTING IN BED EYES CLOSED NO TREMORS NOTED, NO BROW FURROWING, RELAXED POSITION, SNORING NOTED. RR 15 BPM. NO NEW CONCERNS AT THIS TIME
--- NOTE | 2022-02-27 03:48 | NUR ---
PT NOTED TO BE TREMOROUS AND SQUIRMING IN BED, THIS RN TO BEDSIDE, PT OPENED EYES, THIS RN ASKED "ARE YOU IN PAIN STEVIE" SHE NODDED HER HEAD AND VERBALIZED YEA, YEA" ON NONVERBALE PAIN SCALED 4/10, 25MCG IV FENTANYL ADMINISTERED PRN AT THIS TIME.
--- NOTE | 2022-02-27 06:10 | NUR ---
ROUNDING ON PT, PT OPEN EYES TO VOICE, THIS RN ORIENTING PT TO PLACE EVENT AND TIME. PT NOT VERBAL, SLIGHT SMILE NOTED. NO NEW CONCERNS AT THIS TIME.
--- NOTE | 2022-02-27 07:21 | NUR ---
Report recieved, care of PT assumed at this time.
--- NOTE | 2022-02-27 07:58 | NUR ---
PATIENT RESTING IN BED, UPON THIS STRESS ENGINEER ENTERING ROOM, PATIENT OPENED HER EYES AND MADE EYE CONTACT, ATTEMPTING TO SPEAK/MUMBLE. VITALS AND I&OS CHARTED. NG IN PLACE, SOARES EMPTIED. NO OTHER NEEDS AT THIS TIME
--- NOTE | 2022-02-27 09:00 | NUR ---
DR CASTILLO AT BEDSIDE TO ASSESS PATIENT. PLAN OF CARE FOR DAY ESTABLISHED WITH THIS RN.
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
--- NOTE | 2022-02-27 10:32 | NUR ---
BEDBATH GIVEN, SOARES AND ORAL CARE PROVIDED. WOULND CLEANED AND REDRESSED BY ELSY HINOJOSA. PATIENT RESPONDING TO PAIN (WINCING) BUT TOLERATED WELL OTHERWISE. VITALS CHARTED. CUP OF WATER AND STRAW PROVIDED, PATIENT BRIEFLY CLOSED HER LIPS AROUND STRAW BUT DID NOT TAKE A DRINK.PATIENT REPOSITIONED ONTO RIGHT SIDE, LEFT ARM AND LEGS ELEVATED.
--- NOTE | 2022-02-27 11:53 | NUR ---
ASSESSMENT COMPLETED. PT RESTING WITH EYES CLOSED, BREATHING EVEN AND UNLABORED. NO GRIMACING OR PAIN INDICATORS NOTED. NEW DRESSING PLACED ON RIGHT HAND IV. REPOSTIONED PT ON TO BACK. ASSESSMENT OTHERWISE UNCHANGED.
--- NOTE | 2022-02-27 14:25 | NUR ---
2PA REPOSITIONED PATIENT. SOARES EMPTIED, ORAL CARE PROVIDED
--- NOTE | 2022-02-27 15:29 | NUR ---
KNEE WOUNDS DRESSED WITH TEGADERM. METAHONEY NON ADHESIVE DRESSING AND GAUZE OVERO WOUNDS ON LEFT WRIST/HAND. WELL TOLERATED BY PT.
--- NOTE | 2022-02-27 16:30 | NUR ---
ASSESSMENT UNCHANGED. PT REPOSITIONED IN BED. NO NOTED PAIN WITH MOVMENT. PT TRACKING THIS RN WITH EYES. IV FLUIDS INFUSING. CALL LIGHT WITHIN REACH. WILL CONTINUE TO MONITOR.
--- NOTE | 2022-02-27 17:00 | NUR ---
Update from RN, pt is not able to answer question. Will cont. to follow this pt until she is more alert. Per staff, sister visited for short period and left.
--- NOTE | 2022-02-27 20:10 | NUR ---
pt ARRIVED FROM CCU TO MEDSURG FLOOR. PRIMARY RN AMARILYS MADE AWARE. VSS, pt AWAKE AND RESTING IN BED, HOB ELEVATED AND ON RA. RR EVEN AND UNLABRED, pt QUIET AT THIS TIME. NG TUBE CLAMPED. IV FLUIDS INFUSING DIRECTED, LEAKING NOTED. IV SITE ASSESSED AND REDRESSED WITH NO FURTHER LEAKING. WILL MONITOR FOR CHANGES, CALL LIGHT IN REACH AND pt IN VIEW OF RN STATION. BED ALARM ON FOR SAFETY.
--- NOTE | 2022-02-27 21:55 | NUR ---
pt boosted and repositioned in bed, pillow under left side. bed alarm resumed. pt repeatedly states, "i want a drink of water". diet clarified with primary rn natacha, per primary rn pt to have liquids through ng tube, mouth swabs offered by epic prelude analyst- pt refused. iv site wnl, fluids continue to infuse wnl. primary rn natacha aware.
--- NOTE | 2022-02-27 22:00 | NUR ---
IN TO CHECK SOARES OUTPUT, REPOSITIONED PT, PT ASKING FOR SIP OF WATER, TRIED TO OFFER ORAL SWABS, PT REFUSING, ONLY WANTS WATER AT THIS TIME, AWAITING FURTHER INSTUCTIONS FROM PRIMARY RN
--- NOTE | 2022-02-27 23:02 | NUR ---
On room air, dim lungs at bases, no cough noted. HOB elevated, NGT clamped, flushes easily, on clear liquids, meds crushed/infused through NGT. Tele#[address] sinus lluvia. f/c not chronic, patent, drainig clear yellow urine. alert, slurred speech, mild arm tremors present. Tried to do oral care, declines, as per MD pt can have sips of fluids. aspiration prevantion in place. multiple scabbed over areas on L cheeck, L jaw, back, L shoulder edema 3+,abrasions redness, hands wrapeed in kerlix, elevated. R arm redness, scabbed over, red skin colored, wrapped R hand, elevated 2+ edema. chest and all over over areas in different stages of healing, dressings over knees. redness/duskiness of L big toe and second toe. heel protectors in place, edema to ankles/feet 1+, fall precautions in place, bed alarm, IVF infusing R FA. Medicated with Fentanyl 25mcg prior to repositioning moans and groans. calmed down after procedures completed. peric are done, call light at hands reach
--- NOTE | 2022-02-28 01:35 | NUR ---
ON ROOM AIR, NGT CLAMPED, IVF INFUSING W/O PROBLEMS, ARMS ELEVTED IN PILLOWS, EDEMA NO CHANGES. BRUISING AND SCABBED AREAS ALL OVER BODY HEALING. HOB ELEVATED TO COMOFRT, FALL AND ASPIRATION PRECAUTIONS IN PLACE. LE ELEVTED, HEEL PROTECTORS INPLACE.
--- NOTE | 2022-02-28 03:09 | NUR ---
resting, hob elevated, R nare NGT in place, clamped, repositioned, goes back to sleep, f/c patent, ivf infusing, abrasions healing, LE and arms elevated
--- NOTE | 2022-02-28 05:35 | NUR ---
am lab draw completed by lab, iv fluids resumed per md orders, iv site wnl. call light inr each. primary rn aware.
--- NOTE | 2022-02-28 05:39 | NUR ---
pt on room air, HOB elevate NGT patent, clamped, for med, and water flushes, tolerated well. multiple abrasions on face, hands, L side, knees and toes in different stages of healing. tele#[address], sinus rhtythm, no s/sx chest pain. f/c not chronic, patent. Pt has been turned and repositioned . tolerated well. was medicated x1 with Fentanyl 25mcg tolerated well, has slept most of this shift. both arms in pillows, IVF infusing w/o problems. on clear fluids, took sips, tolerated well, hob elevated, aspiration and fall restrictions in place. bed alarm. garbled unintelligible speech noted, opens eyes when called. call light and fluids t bedside
--- NOTE | 2022-02-28 06:50 | NUR ---
dr gillis made aware of critical sodium result of 161. no new orders received at this time. primary rn natacha aware.
--- NOTE | 2022-02-28 06:51 | NUR ---
DR GOMEZ WAS NOTIFIED BY CHARGE NURSE ABOUT NA CRITICAL LAB VALUE 161, NO NEW ORDERS
--- NOTE | 2022-02-28 10:33 | NUR ---
RN IN ROOM TO ADMINISTER SCHEDULED MEDICATIONS AND ASSESS PT - PT MINIMALLY RESPONSIVE WITH EYE OPENING TO SOUND AND TOUCH. NG TUBE FLUSHED WITH 200 WATER AFTER MED ADMINISTRATION. PT REPOSITIONED WITH PILLOWS UNDER RIGHT SIDE. MINIMAL PAIN RESPONSE WITH MOVEMENT. WOUND ASSESSMENT UNCHANGED - NO NEW BREAKDOWN NOTED. COCCYX NOT VIEWED DURING THIS ASSESSMENT. SOARES CATH IN PLACE AND DRAINING QS YELLOW URINE. SISTERS IN ROOM TO VISIT - QUESTIONS ASKED REGARDING PT STATUS. CASE MANAGEMENT VISITED.
--- NOTE | 2022-02-28 11:26 | NUR ---
SISTERS OLIVER AND LIBAN AT THE BEDSIDE. FAMILY STATES THAT THEY HAVE ATTEMPTED TO ASSIST THE PATIENT WITH ASSISTANCE TO AN [facility] IN THE PAST. UNFORTUNATELY THIS WAS DURING COV AND THERE WAS NO BED AVAILABILITY AT THE TIME. THEY HAVE RECENT TOURED [facility], BUT THERE ARE NO BED AVAILABLE AT THIS TIME. OLIVER STATES THE FAMILY HAS BEEN TRYING TO CHECK ON THE PATIENT MORE OFTEN WELL ASSIST HER WITH PAYING BILLS AND SHOPPING. LIBAN STATES THIS HAS BEEN DIFFICULT BECAUSE THE PATIENT IS [place] AND HER APARTMENT IS LOCKED UP MOST OF THE TIME. FAMILY STATES THAT THE PATIENT IS "NOCTURNAL" STAYING AWAKE ALL NIGHT WORRYING ABOUT SOMEONE COMING INTO HER HOME, THEN TENDS TO SLEEP DURING THE DAY. OLIVER AND LIBAN STATES THAT THE PATIENT DOES NOT HAVE A POA OR A POLST SHE HAS NOT WANTED TO SIGN ANYTHING IN THE PAST. THE FAMILY HAS ALSO ATTEMPTED TO GET THE PATIENT ON [employer] MEDICA[employer] IN THE PAST, BUT SHE DID NOT QUALIFY FINANCIAL OR PHYSICALLY. THE SISTERS AGREE THAT IT IS NOT SAFE FOR THE PATIENT TO RETURN HOME AFTER THIS VISIT. THE SISTER WILL DISCUSS THE PATIENT OPTIONS AND FURTHER DISCUSS A PLAN FOR DISCHARGE. CASE MANAGEMENT TO CONTINUE FOLLOW UP DURING VISIT.
--- NOTE | 2022-02-28 11:35 | NUR ---
PT REPOSISTIONED WITH PILLOWS UNDER LEFT SIDE. L ARM VERY EDEMATIS - ELEVATED ON PILLOW. PT RESPOSIVE WITH GROANING WITH MOVEMENT.
--- NOTE | 2022-02-28 12:39 | NUR ---
RN IN ROOM WITH POLICY ADVISER TO REDRESS AND CLEAN WOUNDS. WOUNDS ON FACE CLEANED WITH WOUND CLEANSER AND MEDIHONEY AND ALLYVN PLACED. WOUNDS ON KNEES CLEANED AND NEW HYDROCOLLOIDS PLACED. LEFT HAND WOUNDS CLEANED, MEDIHONEY, ADAPTIC, ABD AND KERLEX WRAPPED.
--- NOTE | 2022-02-28 13:40 | NUR ---
PT REPOSISTIONED WITH PILLOW ON RIGHT SIDE. LEFT ELBOW FLOATED ON PILLOW. PT OPENS EYES TO RESPONSE. ATTEMPTING TO SPEAK, GARBLED WORDS.
--- NOTE | 2022-02-28 15:51 | NUR ---
PT REPOSITIONED WITH PILLOWS - IV SITE TOLERATING FLUIDS WITHOUT DIFFICULTY. NG TUBE FLUSHED WITH 200ML OF WATER. PT VERABLIZING "I WANT ICE CREAM" SPECIFICALLY REQESTING "HAAGENDAZS ICE CREAM" "ITS IN THE FREEZER". PT SWALLOWED SIPS OF WATER WITHOUT SWALLOWING DIFFICULTY.
--- NOTE | 2022-02-28 17:26 | NUR ---
RN IN ROOM TO PROVIDE ORAL CARE - LAB IN ROOM TO DRAW NEW STAT LABS. PT CONTINUES TO ATTEMPT TO SPEAK, MOSTLY GARBLED BUT CLEAR OCCASIONALLY.
--- NOTE | 2022-02-28 18:40 | NUR ---
RN IN ROOM TO REPOSITION PT - IV FOUND TO BE LEAKING. IV RESTART BY RAILROAD POLICE IN RIGHT WRIST. FLUIDS RESTARTED. PT FOUND TO BE INC OF STOOL AND URINE WHEN TURNING PT - 3ML SALINE INSERTED INTO SOARES BALLOON TO PREVENT LEAKING. PT TOLERATED EATING APPROX 100ML OF CHOCOLATE ICE CREAM, NO SWALLOWING DIFFICULTY.
--- NOTE | 2022-02-28 19:42 | NUR ---
RECEIVED REPORT FROM DAY SHIFT RN. PATIENT IS RESTING IN BED WITH EYES CLSOED, RR 16. CALL LIGHT IN REACH.
--- NOTE | 2022-02-28 22:00 | NUR ---
PATIENT ASSESMENT COMPLTED. VITALS TAKEN AND RECORDED. SOARES EMPTIED AND SOARES CARE COMPLETED. PATIENT HAS SMALL BM. SOARES IS LEAKING ATTEND PLACED ON PATIENT. PATIENT REPOSITIONED IN BED. ALL DRESSINGS ARE C/D/I. PATIENTS IV INFUSING PER ORDER. PATIENTS PM MEDS CRUSHED AND GIVEN PER NG. NG FLUSHED WITH 200ML PER ORDER. PATIENT DOES NOT RESPOND TO QUESTIONS ONLY MOANS AT TIMES. PATIENT REMAINS ON RA. ORAL CARE COMPLETED. CALL LIGHT IN REACH.
--- NOTE | 2022-02-28 23:41 | NUR ---
PATIENT REPOSITIONED IN BED. PATIENTS SPEACH GARBLED. PATIENTS IV INFUSING PER ORDER. NO NEEDS NOTED. CALL LIGHT IN REACH.
--- NOTE | 2022-03-01 02:05 | NUR ---
PATIENT REPOSITIONED. ORAL CARE COMPLETED. IV INFUSING PER ORDER. NO NEEDS NOTED. CALL LIGHT IN REACH.
--- NOTE | 2022-03-01 03:08 | NUR ---
PATIENT IS RESTING IN BED WITH EYES CLSOED, RR 16. CALL LIGHT IN REACH. IV INFUSING PER ORDE.R
--- NOTE | 2022-03-01 04:12 | NUR ---
PATIENT REPOSITIONED IN BED. PATIENT FLUSED WITH 200ML OF FREE WATER INTO NG PER ORDER. PATIENT STATED "YES" WHEN ASKED ABOUT PAIN. PRN PAIN MEDICATION CRUSHED AND GIVEN THROUGH NG. IV INFUSING PER ORDER. NO FURTHER NEEDS NOTED. CALL LIGHT IN REACH.
--- NOTE | 2022-03-01 05:26 | NUR ---
LAB PRESNET IN ROOM. PATIENTS VITALS TAKEN AND RECORDED. SOARES EMPTIED AND SOARES CARE COMPLETED. PATIENTS INTAKE AND OUTPUT RECORDED. PATIENT STATED "THATS ENOUGH" WHEN LAB WAS DRAWING BLOOD. REASSURED PATIENT THAT SHE IS SAFE. PATIENT PROVIDED WARM BLANKET. NO FURTHER NEEDS NOTED. CALL LIGHT IN REACH. IV INFUSING PER ORDER.
--- NOTE | 2022-03-01 06:23 | NUR ---
PATIENT REPOSITIONE DIN BED. ORAL CARE COMPLETED. NO NEEDS NOTED. CALL LIGHT IN REACH.
--- NOTE | 2022-03-01 07:26 | NUR ---
REPORT RECEIVED FROM NIGHT RN - PT AWAKE WITH HOB ELEVATED, NO VERBAL RESPONSE BUT EYE MOVEMENT INTENTIONAL. CURTAIN OPEN AND NEAR NURSES STATION PT CAN NOT USE CALL LIGHT.
--- NOTE | 2022-03-01 08:32 | NUR ---
RN IN ROOM TO ASSESS PT AND ADMINISTER SCHEDULED MEDICATIONS. ORAL CARE PROVIDED, COMPLETE BED BATH WITH BARRIER WIPES WITH WELDING INSPECTOR ASSISTANCE. PT REPOSITIONED IN BED AND FLOATED WITH PILLOW TO OPPOSITE SIDE. PT ABLE TO SWALLOW SMALL BITES OF CREAM OF WHEAT. SIP OF TEA WITH STRAW. PTS SPEACH GARBLED WITH OCCASIONAL CLEAR MOMENTS. OPENS EYES TO SOUND. IV SITE FLUSHED, SL BAG 2 OF 2 COMPLETE INFUSION. CURTAINS OPEN UPON LEAVING.
--- NOTE | 2022-03-01 10:14 | NUR ---
RN IN ROOM TO REPOSISTION PT TO BACK. LEFT ARM CONTINUES TO FLOAT ON PILLOW TO HELP EDEMA. ORAL MOISTURIZER APPLIED. SISTERS IN ROOM TO VISIT. PT MINIMALLY RESPONSIVE TO THIS.
--- NOTE | 2022-03-01 11:43 | NUR ---
RN IN ROOM TO REPOSITION PT - PT DOES NOT APPEAR TO BE IN PAIN WITH MOVEMENT AT THIS TIME, PRN NORCO HELD FOR NOW. PT EATING/SWALLOWING SMALL BITES OF CHOCOLATE ICE CREAM WITHOUT DIFFICULTY. NG TUBE FLUSHED WITH 200 ML OF WATER.
--- NOTE | 2022-03-01 14:36 | NUR ---
RN IN ROOM TO ASSESS PT AND REPOSITION. PT SPEAKING SOME PHRASES WITH CLARITY - GARBLED AT OTHER TIMES. SWALLOWING SOUP WITHOUT DIFFICULTY FROM SPOON. NGT PULLED PER NEW ORDERS. PT TOLERATED THIS WITHOUT DIFFICULTY. ASSESSMENT UNCHANGED.
--- NOTE | 2022-03-01 15:45 | NUR ---
PT REPOSITIONED AFTER PASSIVE RANGE OF MOTION EXERCISES WITH PHYSICAL THERAPIST. PT TOLERATED THIS WELL WITH DISTRACTION OF ICE CREAM. ATTENDS CHANGED, SMALL BM NOTED. NO SKIN BREAKDOWN NOTED ON COCCYX. PT RESTING NOW COMFORTABLY
--- NOTE | 2022-03-01 17:52 | NUR ---
RN IN ROOM TO ADMINISTER SCHEDULED MEDICATIONS. PT ABLE TO SWALLOW CRUSHED PILL IN CHOCOLATE ICE CREAM WITHOUT DIFFICULTY. PT REPOSISTIONED TO BACK.
--- NOTE | 2022-03-01 20:00 | NUR ---
RECEIVED REPORT FROM DAY SHIFT RN. PATIENT IS RESTING IN BED WITH EYES CLOSED, RR 16. CALL LIGHT IN REACH.
--- NOTE | 2022-03-01 21:45 | NUR ---
PATIENT ASSESMENT COMPLETED. VITALS TAKEN AND RECORDED. SOARES EMPTIED. INTAKE AND OUTPUT RECORDED. PATIENTS ATTEND CHANGED CUE TO INCONT OF BOWEL. PATIENT REPOSITIONED IN BED. PATIENTS PM MEDS CRUSHED AND GIVEN IN NING PUDDING. PATIENT SPOON FED SIPS OF WATER. PATIENT TOLERATED PM MED PASS WITH NO S/SX OF ASP. PATIENTS IV INFUSING PER ORDER. NO FURTHER NEEDS NOTED. CALL LIGHT IN REACH. PATIENT IS ON RA.
--- NOTE | 2022-03-01 22:42 | NUR ---
PATIENT IS RESTING IN BED WITH EYES CLSOED, RR 17. CALL LIGHT IN REACH. IV INFUSING PER ORDER.
--- NOTE | 2022-03-02 00:08 | NUR ---
PATIENT REPOSITIONED IN BED. PATIENT TOLERATED ACTIVTY WELL. IV INFUSING PER ORDER. NO FURTHER NEEDS NOTED. CALL LIGHT IN REACH.
--- NOTE | 2022-03-02 01:18 | NUR ---
PATIENT HOLLERED OUT "WATER". PATIENT PROVIDED WITH SPOON FED SIPS OF WATER. PATIENT ABLE TO SWALLOW WITH NO S/SX OF ASPIRATION. PATIENT REPOSITIONED IN BED. PATIENT NOW CRYING OUT "GET ME EGGS, TOAST, AND JUICE". PATIENT PROVIDED ORANGE JUICE. PATIENT IS NOW ABLE TO DRINK SIPS FROM A STRAW. PATIENT DRANK MULTIPLE SIPS FROM A STRAW OF ORANGE JUICE. NO FURTHER NEEDS NOTED. CALL [facility] IN REACH. IV INFUSING PER ORDER.
--- NOTE | 2022-03-02 02:11 | NUR ---
PATIENT HOLLERING OUT "HELP". PATIENT REQUESTING "EGGS, TOAST, JUICE" PATIENT FED X2 CUPS OF CHOCOLATE PUDDING. PATIENT NOW HOLLERING "HELP ME, IT HURTS" PATIENT GIVEN PRN PAIN MEDICATION. NO FURTHER NEEDS NOTED. CALL LIGHT IN REACH.
--- NOTE | 2022-03-02 04:35 | NUR ---
Pt IS RESTING IN BED WITH EYES CLSOED, RR 16. CALL LIGHT IN REACH. IV INFUSING PER ORDER.
--- NOTE | 2022-03-02 05:51 | NUR ---
PATIENT HOLLERIN OUT "I NEED MY CLOTHES". THIS RN ATTEMPTED TO REORIENT PATIENT. UNABLE TO ORIENT PATIENT AT THIS TIME. PATIENTS VITALS TAKEN AND RECORDED. SOARES EMPTIED AND SOARES CARE PROVIDED. INTAKE AND OUTPUT RECORDED. PATIENT CONTINUES TOP CRY OUT. PATIENT APPEARS TO BE UPSET AND CONFUSED. PATIENT UNABLE TO VERBALIZE NEEDS. RICCO RN IN ROOM AND ATTEMPTED TO ORIENT AND CONSOLE Pt. UNABLE TO ORIENT PATIENT. LAB NOW PRESENT IN ROOM TO DRAW BLOOD. PATIENT CRYING OUT "HELP, THERE GONNA KILL ME" REASSURED PATIENT. LAB NOW OUT OF ROOM. PATIENT REASSURED SHE IS SAFE. PATIENT PROIDED SIPS OF WATER. TV TURNED ON FOR DISTRACTION. NO FURTHER NEEDS NOTED. CALL LIGHT IN REACH. IV INFUSING PER ORDER. BED ALARM ON FOR SAFETY.
--- NOTE | 2022-03-02 06:45 | NUR ---
PATIENTS AM MEDS CRUSHED AND GIVEN IN APPLESAUCE. PATIENT TOLERATED ACTIVITY WELL. SIPS OF WATER PROVIDED. NO FURTHER NEEDS NOTED. CALL LIGHT IN REACH. BED ALARM ON FOR SAFETY.
--- NOTE | 2022-03-02 07:32 | NUR ---
REPORT RECEIVED FROM NIGHT RN - PT ALERT IN BED WITH SOME COHERANT CONVERSATION. SIDE RAILS UP AND DOOR AND CURTAIN OPEN NEAR NURSES STATION.
--- NOTE | 2022-03-02 09:42 | NUR ---
RN IN ROOM TO ASSESS PT - PT WAKES EASILY TO VOICE, CONVERSATION INAPPROPRIATE WITH SOME CLEAR SPEACH THOUGH MOSTLY GARBLED. PT REDIRECTABLE WHEN REQUESTS NOT COMPREHENSIBLE. PT REPOSISTIONED AND BED BATH COMPLETED. SOARES CARE ALSO COMPLETE. PT HAD SMALL BM, NO BREAKDOWN ON COCCYX NOTED WHEN CLEANING AND CHANGING ATTENDS. IV SITE TOLERATING FLUIDS WITHOUT DIFFICULTY. SOARES DRAINING WITHOUT DIFFICULTY. BED ALARM ON, CURTAIN OPEN NEAR NURSES STATION.
--- NOTE | 2022-03-02 10:39 | NUR ---
RN ROUNDING ON PT - PT ASLEEP WITH RR EVEN AND UNLABORED. SISTERS AT BEDSIDE.
--- NOTE | 2022-03-02 12:30 | NUR ---
RN IN ROOM TO FEED PT LUNCH - PT REQUIRES VOICE AND TOUCH STIMULUS TO AWAKE FROM SLEEP. PT ABLE TO EAT APPROX 100 ML OF THICKENED ENSURE SHAKE AND PUDDING WITHOUT DIFFICULTY SWALLOWING. PT CLEARS THROAT OCCASIONALLY. PT REPOSISTIONED. MEDICATED WITH PRN NORCO FOR PAIN IN ANTICIPATION OF PHYSICAL THERAPY SESSION IN ONE HOUR.
--- NOTE | 2022-03-02 14:37 | NUR ---
RN IN ROOM TO REPOSISTION PT - PT AGGITATED BY CUFF TURNER MACHINE OPERATOR ATTEMPTING TO GET VITALS. PT REDIRECTED EASILY BY RN. WOUND DRESSINGS CHANGED PER WOUND CARE ORDERS. PT NOW SLEEPING COMFORTABLY WITH LEFT ARM ELEVATED ON PILLOWS.
--- NOTE | 2022-03-02 16:38 | NUR ---
RN IN ROOM TO ADMINISTER SCHEDULED MEDICATIONS. PT WAKES WITH VOICE AND TOUCH. SWALLOWS CRUSHED PILLS IN ICE CREAM. ORAL CARE PROVIDED. PT REPOSISTIONED and TONG PAD CHANGED - MINIMAL LEAKING FROM SOARES CATH. PT AGGITATED BY THIS AND IN LESS REDIRECTABLE THAN EARLIER IN DAY. PT FELL ASLEEP QUICKLY AFTER RN STEPPING OUT OF ROOM.
--- NOTE | 2022-03-02 18:02 | NUR ---
RN ROUNDING ON PT - PT ASLEEP IN BED WITH RR EVEN AND UNLABORED. PT NOT INTERESTED IN WAKING FOR DINNER. LEASE EXAMINER OBTAINED VS WITHOUT DISTRESS OR WAKE FROM PT.
--- NOTE | 2022-03-02 19:05 | NUR ---
REPORT RECEIVED FROM OFFGOING RNLUNA. PT RESTING IN BED. REPEATEDLY ASKING FOR WATER. PROVIDED. SMALL BITES OF TOMATO SOUP PROVIDED. PT DENIES FURTHER NEEDS AT THIS TIME. CALL LIGHT IN REACHK. ROOM IN VIEW OF RN STATION WITH CURTAIN OPEN.
--- NOTE | 2022-03-02 21:50 | NUR ---
PT ASSESSMENT COMPLETE. PT LYING IN BED AWAKE. PT CRYING OUT, NOT REDIRECTABLE. NONVERBAL PAIN SCALE 5/10. PRN ADMINISTERED. RADHA SOUNDS CLEAWR/DIM. NO S/SX OF SOB NOTED. SOARES CATH DRAINING CLEAR YELLOW URINE. VARIOUS DRESSINGS C/D/I. PT C/O BEING HUNGRY. SOUP FROM DINNER REHEATED. PT ABLE TO HOLD HER CUP INDEPENDENTLY WITH R HAND AND DRINK SOUP WITHOUT ASSISTANCE. ALL OTHER EXTREMITIES WITH NO MOVEMENT. PT UNABLE TO FOLLOW COMMANDS TO SQUEEST FINGERS, LIFT ARM, PUSH WITH FEET, ETC. IV FLUSHED WITH 10 ML NS. WNL. GOOD BLOOD RETURN NOTED. IVF INFUSING ORDERED. PT DENIES FURTHER NEEDS AT THIS TIME. REPOSITIONED AND PROPPED WITH PILLOWS. CALL LIGHT IN REACH. ROOM IN VIEW OF RN STATION WITH CURTAIN OPEN.
--- NOTE | 2022-03-03 00:30 | NUR ---
PT RESTING IN BED WITH EYES CLOSED, SNORING AUDIBLY FROM RN STATION. CALL LIGHT IN REACH. ROOM IN VIEW OF RN STATION WITH CURTAIN OPEN.
--- NOTE | 2022-03-03 03:00 | NUR ---
PT ASSESSMENT COMPLETE. PT RESTING IN BED WITH EYES CLOSED. WAKES EASILY TO TOUCH. NO NONVERBAL S/SX OF PAIN PRESENT. LUNG SOUNDS CLEAR, NO S/SX OF SOB NOTED. SOARES CATH DRAINING CLEAR YELLOW URINE. ALL WOUND DRESSINGS C/D/I. IVF INFUSING ORDERED. PT ASSISTED WITH PUDDING WITH SCHEDULED MEDS AND SIP OF WATER. DENIES FURTHER NEEDS. CALL LIGHT IN REACH.
--- NOTE | 2022-03-03 06:49 | NUR ---
PT RESTING IN BED. SCHEDULED MEDICATION ADMINISTERED. PT REPOSITIONED AND PROPPED WITH PILLOWS. PT DENIES NEEDS AT THIS TIME. CALL LIGHT IN REACH. ROOM IN VIEW OF RN STATION WITH CURTAIN OPEN.
--- NOTE | 2022-03-03 07:23 | NUR ---
REPORT FROM FLAME BRAZING MACHINE OPERATOR RNYASMANI.
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
--- NOTE | 2022-03-03 12:01 | NUR ---
PATIENT TURNED TO RIGHT SIDE. PATIENT ASKED WHERE SHE WAS AT, SEEMED ABLE TO UNDERSTAND THAT SHE WAS IN THE HOSPITAL AND UNABLE TO GO HOME AT THIS TIME. PATIENT DENIES PAIN.
--- NOTE | 2022-03-03 14:58 | NUR ---
HYDROCOLLOIDS REMOVED FROM BILATERAL KNEES. PICTURES TAKEN. KNEE WOUNDS CLEANED WITH WOUND CLEANSER, METAHONEY APPLIED, COVERED WITH ALLEVYN. KNEE DRESSINGS ARE DATED. RIGHT WRIST WOUND DRESSING CHANGED, WOUNDS CLEANED WITH WOUND CLEANSER, XEROFORM APPLIED, COVERED WITH GUAZE AND COBAN. PATIENT TURNED TO LEFT SIDE.
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
--- NOTE | 2022-03-03 17:21 | NUR ---
PATIENT ROLLED, DRAW SHEET, CHUX, ATTENDS CHANGED. PATIENT HAD SMALL BM, PERICARE DONE. PATIENT IS FLOATED ON 2 PILLOWS AT THIS TIME. PATIENT IS ACUTELY CONFUSED, OCCASIONALLY SHOUTING OUT TO "GET UP!"
--- NOTE | 2022-03-03 17:26 | NUR ---
SKIN ASSESSMENT: BACK, BUTTOCKS, BACK OF LEGS-SKIN IS INTACT AT THIS TIME, NO BREAKDOWN NOTED.
--- NOTE | 2022-03-03 18:50 | NUR ---
PATIENT IS SITTING ON BEDPAN.
--- NOTE | 2022-03-03 22:15 | NUR ---
PT ASSESSMENT COMPLETE. PT RESTING IN BED WITH EYES CLOSED. WAKES EASILY TO TOUCH. PT RESPONDS TO WRITING, CANNOT HEAR. PT ORIENTED TO SELF ONLY. REPORTS SHE IS COMFORTABLE. GENERALIZED BUE AND BLE EDEMA PRESENT. EXTREMITIES ELEVATED ON PILLOWS. PT REPOSITIONED AND PROPPED WITH PILLOWS. SOARES CATH DRAINING CLEAR YELLOW URINE. DRESSINGS TO FACE, L WRIST, BILATERAL KNEES C/D/I. IV FLUSHED WITH 10 ML NS, WNL. PT ATE PUDDING AND TOOK SIPS OF CLEAR ENSURE. PT DENIES FURTHER NEEDS. CALL LIGHT IN REACH. ROOM IN VIEW OF RN STATION WITH CURTAIN OPEN.
--- NOTE | 2022-03-03 23:04 | NUR ---
PT ROUNDING. PT RESTING IN BED WITH EYES CLOSED. RESPIRATIONS EVEN AND UNLABORED. PT APPEARS TO BE SLEEPING. CALL LIGHT IN REACH. ROOM IN VIEW OF RN STATION WITH CURTAIN OPEN.
--- NOTE | 2022-03-04 00:48 | NUR ---
PT RESTING IN BED WITH EYES CLOSED. RESPIRATIONS EVEN AND UNLABORED. PT APPEARS TO BE SLEEPING. CALL LIGHT IN REACH. ROOM IN VIEW OF RN STATION WITH CURTAIN OPEN.
--- NOTE | 2022-03-04 02:30 | NUR ---
BOTTLE HOUSE CLEANERS SUPERVISOR TO ROOM FOR SCHEDULED MEDCIATION ADMINISTRATION. PT RESTING IN BED AWAKE. COMMUNICATES VIA WRITING. PT STATES SHE IS COMFORTABLE. ORIENTED TO SELF, OTHERWISE DISORIENTED. PT STATES SHE IS COMFORTABLE. BUE AND BLE EDEMA. EXTREMITIES ELEVATED. ALL EXTREMITIES WITH WEAK MOVEMENT. PT ABLE TO WIGGLE TOES AND SQUEEZE FINGERS WITH HANDS. SOARES CATH DRAINING CLEAR YELLOW URINE. PT ASSISTED TO EAT A PUDDING AND TAKE SIPS OF CLEAR ENSURE. TOLERATED WELL. IV FLUSHED WITH 10 ML NS. WNL. PATENT. ORAL CARE PERFORMED. PT REPOSITIONED. DECLINES FURTHER NEEDS AT THIS TIME. CALL LIGHT IN REACH. ROOM IN VIEW OF RN STATION WITH CURTAIN OPEN.
--- NOTE | 2022-03-04 05:50 | NUR ---
IN TO DO VITALS. pt ASKED "CAN YOU TAKE ME DOWNSTAIRS" ORIENTED BY WRITING NOTES. pt DISORIENTED TO PLACE AND SITUATION, EXPRESSED SURPRISE AT BEING IN THE HOSPITAL. VITALS AND I&O RECORDED. NO FURTHER REQUESTS. CALL LIGHT WITHIN REACH. CURTAIN OPEN TO NURSES STATION.
--- NOTE | 2022-03-04 07:25 | NUR ---
REPORT RECIEVED FROM DIRECTOR OF BRAND MARKETING RNFRANCESCO.
--- NOTE | 2022-03-04 08:54 | NUR ---
Texted [facility], [facility], and [facility] to check for bed availabilty for this week or next and if they accept [employer].
--- NOTE | 2022-03-04 09:25 | NUR ---
MORNING ASSESSMENT DONE. PATIENT ATE WELL FOR BREAKFAST, WITH ASSISTANCE. PATIENT HAS HAD 3 BM'S SINCE LAST NIGHT DOSE OF DULCOLAX AND THIS MORNINGS DOSE HELD. PATIENT'S SISTER IN TO SEE PATIENT.
--- NOTE | 2022-03-04 10:15 | NUR ---
Spoke with pt's sister Camila. Violet is confused and asks frequently if she is in [place]. Does not believe myself or her sister she is at [facility] in [place]. Discussed with sister there are two SNF beds available in the area. I will send the chart. Sister really doesn't want her to leave town, but states understanding. She also agrees for placement to [facility] if they have a bed open. Called and spoke with Rosemarie from [facility], they have beds and will evaluate pt tomorrow at the hospital. Spoke with Dr López and he feels pt is appropriate for [facility] and they will take 2 person assist.
--- NOTE | 2022-03-04 10:39 | NUR ---
PATIENT IS ACUTELY CONFUSED, UNABLE TO BE REORIENTED. KNEE DRESSINGS REPLACED WITH METAHONEY AND ALLEVYN.
--- NOTE | 2022-03-04 11:31 | NUR ---
IV pump alarming, new bag IV fluid hung, pt states no needs. Call light in reach.
--- NOTE | 2022-03-04 14:47 | NUR ---
PHYSICAL THERAPY WORKING WITH PATIENT. PATIENT ABLE TO SIT AT BEDSIDE WITH ASSISTANCE. LINENS CHANGED, BED BATH DONE, CATH CARE COMPLETED, GOWN CHANGED. PATIENT TOLERATED ACTIVITY WELL. PATIENT REPOSITIONED TO BACK, LEGS ELEVATED ON 2 PILLOWS.
--- NOTE | 2022-03-04 15:37 | NUR ---
PATIENT SALINE LOCKED, WARM BLANKET PROVIDED.
--- NOTE | 2022-03-04 16:10 | NUR ---
PATIENT GIVEN EVENING MEDICATIONS WITH A SIP OF WATER.
--- NOTE | 2022-03-04 18:04 | NUR ---
PATIENT IS BEING FED DINNER, APPETITE IS GOOD.
--- NOTE | 2022-03-04 19:09 | NUR ---
PATIENT REPOSITIONED WITH PILLOW UNDER RIGHT SIDE, LEFT ARM.
--- NOTE | 2022-03-04 19:40 | NUR ---
RECEIVED REPORT FROM DAY SHIFT RN. PATIENT IS RESTING IN BED. NO NEEDS NOTED. CALL LIGHT IN REACH.
--- NOTE | 2022-03-04 21:40 | NUR ---
ASSISTED RAY GANDARA. V/S AND I&O'S TAKEN AND RECORDED. TONG/SOARES CARE DONE. PATIENT HAD LARGE BOWEL MOVEMENT. FRESH ATTENDS PLACED. PATIENT REPOSITIONED.
--- NOTE | 2022-03-04 22:07 | NUR ---
PATIENT ASSESMENT COMPLETED. VITALS TAKEN AND RECORDED. INTAKE AND OUTPUT RECORDED. SOARES EMPTIED AND SOARES CARE COMPLETED. PATIENT HAD XL FORMED BM. PATIENT REPOSITIONED IN BED. PM MEDS GIVEN IN PUDDING. SIPS OF WATER PROVIDED. Pt SL PER ORDER. HEEL PROTECTORS IN PLACE. PATIENT ONLY ORIENT TO SELF. NO FURTHER NEEDS NOTED. CALL LIGHT IN REACH.
--- NOTE | 2022-03-04 23:58 | NUR ---
PATIENT REPOSITIONED IN BED. PATIENT DENIES ANY NEEDS. CALL LIGHT REACH.
--- NOTE | 2022-03-05 01:02 | NUR ---
PATIENT REPOSITIONED IN BED. SCHEDULED MEDS GIVEN PER ORDER. PATIENT PROVIDED SIPS OF WATER. NO FURTHER NEEDS NOTED. CALL LIGHT IN REACH. SOARES DRAINING CLEAR YELLOW URINE.
--- NOTE | 2022-03-05 02:09 | NUR ---
PATIENT IS RESTING IN BED WITH EYES CLOSED, RR 17. CALL LIGHT IN REACH.
--- NOTE | 2022-03-05 03:06 | NUR ---
PATIENT REPOSITIONED IN BED. PATIENT FED A CHOCOLATE PUDDING. PATIENT PROVIDED SIPS OF WATER. NO FURTHER NEEDS NOTED. CALL LIGHT IN REACH.
--- NOTE | 2022-03-05 05:07 | NUR ---
PATIENT REPOSITIONED IN BED. VITALS TAKEN AND RECORDED. INTAKE AND OUTPUT RECORDED. SOARES EMPTIED AND SOARES CARE COMPLETED. PATIENT PROVIDED SIPS PER ORDER. NO NEEDS NOTED. CALL LIGHT IN REACH.
--- NOTE | 2022-03-05 06:22 | NUR ---
PATIENTS AM MEDS GIVEN PER ORDER. PATIENT ATE A CHOCOLATE PUDDING. SIPS OF WATER GIVEN PER ORDER. CALL LIGHT IN REACH.
--- NOTE | 2022-03-05 07:35 | NUR ---
[facility]Star. BEDSIDE REPORT FROM NIGHT RN, ASSUMED ALL CARE OF PT.
--- NOTE | 2022-03-05 10:10 | NUR ---
PATIENT EATING DECENTLY ON A SOFT & BITE-SIZED DIET. SHE NEEDS ASSISTANCE WITH MEALS. CONTINUE REGULAR DIET WITH SOFT & BITE-SIZED DIET. WILL CONTINUE TO MONITOR.
--- NOTE | 2022-03-05 11:14 | NUR ---
RESTING IN BED, TOTAL CARE PT., TURN Q 2 HR. MOSTLY NON VERBAL, VERY SLOW TO RESPOND. SOARES CATHETER, [place], DEMENTIA, COVID NEG, PLANNED FOR [facility] TO EVALUATE TODAY FOR PLACEMENT.
--- NOTE | 2022-03-05 14:20 | NUR ---
INTO PATIENT ROOM, DARRYL CHIN FROM [facility] AT THE BEDSIDE. PATIENT HISTORY GIVEN. DISCUSS PATIENT LACK OF ABILITY TO AMBULATE AND USE HER LUE AT THIS TIME. DISCUSSED THAT PATIENT IS ABLE TO FEED HERSELF WITH ASSISTANCE. ATTEMPTS TO SPEAK WITH PATIENT WERE MADE VIA VOICE AND WRITTEN WORD. PATIENT ABLE TO INDICATE SHE IS DOING OKAY AND THAT SHE LIVES IN [place]. PATIENT STATES THE YEAR IS "1922." WHEN ASKED. PER DARRYL CHIN [facility] THEY ARE SHORT STAFF. PATIENT WOULD NEED TO BE ABLE TO TRANSFER TO A AND SIT IN THE DINING ROOM FOR AT LEAST AN HOUR FOR ASSISTANCE WITH FEEDING. DARRYL CHIN STATES THAT THEY MAY BE ABLE TO ACCEPT THE PATIENT IF SHE IMPROVES WITH MORE SKILLED PT. WILL DISCUSS WITH DR. SHARMA AND PT.
--- NOTE | 2022-03-05 15:03 | NUR ---
Received message from Kylie at [facility]. They will not accept this pt as she has 20days only. We are working on [facility] tender care and they will not pay out of state for placement.
--- NOTE | 2022-03-05 16:41 | NUR ---
PT. RESTING IN BED, TURNED Q 2 HRS. SOMETIMES COMBATIVE AND WILL TRY TO HIT AND YELLS OUT WHEN ASSISTING WITH BM AND SOARES CARE. SHE HAS HAD 2 LARGE BM'S TODAY AND WILL HOLD THE DULCOLAX PO. MOSTLY CONFUSED AND IS VISITING WITH HER SISTER.
--- NOTE | 2022-03-05 16:43 | NUR ---
SPOKE WITH MILKA IBRAHMI, DISCUSSED ISSUES WITH PLACEMENT TO [facility]. DISCUSSED THE GOAL FOR [facility] TO TRANSFER TO . MILKA IBRAHIM STATES THAT IT IS HER OPINION THAT THE PATIENT WILL REQUIRE THE USE OF A CHARLIE LIFT FOR TRANSFER. WILL CONTINUE TO SEEK SNF PLACEMENT FOR PATIENT.
--- NOTE | 2022-03-05 19:30 | NUR ---
REPORT RECEIVED ON PT. SHE WAS BOOSTED IN BED AND TOLERATED THIS WELL.
--- NOTE | 2022-03-05 20:24 | NUR ---
ASSISTED NURSE WITH REPOSITIONING. CHARTED PATIENT VITALS AND I/OS. ROOM TIDIED. TRASH EMPTIED. FRESH WATER PROVIDED. CALL LIGHT LEFT WITHIN REACH. NO OTHER IMMEDIATE NEEDS AT THIS TIME.
--- NOTE | 2022-03-05 23:20 | NUR ---
PT WAS TURNED AND BRIEF CHANGED. SHE ASKED FOR JELLO AND WAS FED 2 JELLOS. CALLL LIGHT IN REACH.
--- NOTE | 2022-03-06 01:17 | NUR ---
PT TURNED TO LEFT TILT. SHE ASKED FOR SOMETHING TO EAT AND WAS FED A CONTAINER OF VANILLA PUDDING.
--- NOTE | 2022-03-06 02:39 | NUR ---
PTS SPEECH IS CLEARER. SHE IS ABLE TO VERBALIZE THAT SHE WANTS HER SISTER TO BRING HER TOMATO SOUP. SHE ASKED FOR PUDDING AND WAS FED 1 CONTAINER OF CHOCOLATE PUDDING.
--- NOTE | 2022-03-06 03:12 | NUR ---
PT IS TURNED ONTO HER BACK. ATTENDS CHANGED SOARES LEAKED.
--- NOTE | 2022-03-06 05:25 | NUR ---
pt has been turned onto her left side with pillow support PT HAS BEEN TURNED ONTO HER LEFT SIDE WITH PILLOW SUPPORT. SHE HAS BEEN ABLE TO HOLD HER ATER CUP AND TAKE SIPS. ENCOURAGED TO USE HER CALL LIGHT.
--- NOTE | 2022-03-06 05:27 | NUR ---
PT HAS A SOARES CATHETER THAT HAS DRAINED 450 MLS OF DARK YELLOW URINE. SHE HAS HAD URINE LEAK AROUND THE CATHETER, ATTENDS HAVE BEEN CHANGED X2. PT HAS BEEN ABLE TO HOLD HER WATER CUP AND TAKE SIPS.SHE HAS VERBALIZED CLEARLY WHEN SHE WANTS SOMETHING TO EAT. VSS, AFEBRILE.
--- NOTE | 2022-03-06 07:25 | NUR ---
PTTURNED TO RIGHT TILT WITH PILLOW SUPPORT. IV FLUSHED. PT TOLERATED TURN WELL. PT WAS ABLE TOO HOLD HER WATER CUP AND DRINK.
--- NOTE | 2022-03-06 07:34 | NUR ---
[facility]Star. REPORT FROM NIGHT RN, ASSUMED ALL CARE OF PT.
--- NOTE | 2022-03-06 08:34 | NUR ---
Spoke with Lanette at [facility]. They do have beds available. Update given and chart face sheet, covid test, H&P, Progress notes, PT notes faxed.
--- NOTE | 2022-03-06 09:21 | NUR ---
JEWEL MYERS ASSISTED ME WITH MOVING PATIENT TO CHAIR WITH CHARLIE. POSITIONED PATIENT ON PILLOWS WITH PILLOWS UNDER ARMS AND LEGS. I DID COMPLETE LINEN CHANGE. PATIENT IS UP IN CHAIR EATING BREAKFAST. SHE DOES NOT NEED ANYTHING ELSE AT THIS TIME. CHAIR ALARM ON. CALL LIGHT IN REACH.
--- NOTE | 2022-03-06 10:00 | NUR ---
AM CARE WITH ASSIST FROM RNBenji FERRELL IN CHAIR, CONVERSING APPROPRIATELY. LISTENING TO MUSIC OF CHOICE AND DRAWING PICTURES WITH RN. SOARES PATENT TO SD. GOOD APPETITE AND ADEQUATE FLUIDS. DRESSING CHANGES PLANNED WITH WOUND NURSE HERE TODAY.
--- NOTE | 2022-03-06 11:04 | NUR ---
PT SITTING IN CHAIR, RATHER CONFUSED TODAY. ANSWERS TO QUESTIONS MADE LITTLE SENSE. PT WAS PLEASANT THOUGH, ASKED A QUESTION ABOUT GOD BEING WITH HER.
--- NOTE | 2022-03-06 11:13 | NUR ---
OOB RESTING IN CHAIR. PLAYED TIC TAC TOE WITH PT. AND SHE WON. FLUIDS NEARBY AND LISTENING TO MUSIC.
--- NOTE | 2022-03-06 12:23 | NUR ---
PT. OOB IN CHAIR, EATING LUNCH. PLAN TO DO A COMPLETE SHOWER WITH 2 CAREER SERVICES REPRESENTATIVE'S AFTER LUNCH.
--- NOTE | 2022-03-06 14:06 | NUR ---
SPOKE WITH PATIENT SISTER GIDEON. ADVISED GIDEON THAT PATIENT CHART HAS BEEN SENT TO [facility]. ADVISED THAT [facility] HAS DECLINED THE PATIENT DUE TO INSURANCE COVERAGE AT THIS TIME. GIDEON STATES THAT THEY DO NOT WANT THE PATIENT TO GO TO [facility]. I ADVISED GIDEON THAT UNFORTUNATLY AT THIS TIME BED AVAILABILITY IN OUR AREA IS LIMITED AND IF THEY DECLINE AN OPEN BED THE PATIENT WILL HAVE TO RETURN HOME. EXPLAINED TO GIDEON THAT UNFORTUNATLY ONCE THE PATIENT NO LONGER MEETS MEDICAL NECESSITY FOR INPATIENT STAY MEDICARE WILL NO LONGER CONTINUE TO COVER HER HOSPITAL STAY. ASKED GIDEON IF THE PATIENT WOULD BE WILLING TO SIGN A POA FOR HER SISTERS TO ASSIST WITH MEDICAL AND FINANCIAL NEEDS AT THIS TIME. JOSE STATES "NO NONE OF US REALLY WANT TO DO THAT, BUT I SEE THE WRITING ON THE WALL THAT WE HAVE TO." ADVISED GIDEON WE WILL ATTEMPT TO DISCUSS A POA WITH THE PATIENT AND CONTINUE TO SEARCH FOR PLACEMENT. WILL UPDATE FAMILY MOO.
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
--- NOTE | 2022-03-06 18:17 | NUR ---
RESTING IN BED, HOB UP 40 DEGREES. CHANGED ALL DRESSINGS TODAY AFTER HER SHOWER. TOLERATED WELL. ALL WOUNDS ARE HEALING WELL.
--- NOTE | 2022-03-06 19:12 | NUR ---
TCT DR. SHARMA, REPORTED URINE OUTPUT PER SOARES THIS SHIFT WAS 475. HE STATED THAT WAS GOOD FOR HER AND NO ORDERS OR CHANGES GIVEN.
--- NOTE | 2022-03-06 19:14 | NUR ---
ASSISTED PATIENT TO BATHROOM USING WALKER. PATIENT HAD LIQUID BM AND IS NOW BACK IN BED HOOKED UP TO BIPAP. SHE DOES NOT NEED ANYTHING AT THIS TIME. CALL LIGHT IN REACH.
--- NOTE | 2022-03-06 19:20 | NUR ---
REPORT TAKEN ON PT SHE FIDE INSISTENT ON GOING HOME. NOT ORIENTED TO PLACE TIME OR SITUATION. OFFERED WATER TO DRINK. PT APPEARS TO BE MORE CONCERNED WITH GOING HOME.
--- NOTE | 2022-03-07 02:48 | NUR ---
PT HAD A LARGE SOFT BROWN BM. SHE WAS CLEANED AND HER LINEN WAS CHANGED. PT WAS RESISTENT TO CARES, BATTING AT STAFF, STATING SHE WANTS TO GO HOME. HER BED IS IN THE LOW POSITION, SIDERAILS UP FOR HER SAFETY. CALLL LIGHT IN REACH.
--- NOTE | 2022-03-07 04:37 | NUR ---
PT'S BRIEF WAS WET, SOARES LEAKED . PT WAS CLEANED, BRIEF CHANGED AND PT TURNED TO RIGHT TILT WITH PILLOW SUPPORT. PT IS CONFUSED. DID NOT APPEAR TO UNDERSTAND EXPLANATION OF CARES. ORIENTED TO SLEF ONLY. CALL LIGHT IN REACH.
--- NOTE | 2022-03-07 04:37 | NUR ---
IN TO ASSIST RN WITH REPOSITIONING AND SOARES, NO FURTHER NEEDS AT THIS TIME
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
--- NOTE | 2022-03-07 08:00 | NUR ---
Faxed latest PT notes to [facility].
--- NOTE | 2022-03-07 10:43 | NUR ---
Patient repostioned at this time. Patient's sister at bedside. No current needs, personal supplies and call light within reach.
--- NOTE | 2022-03-07 11:15 | NUR ---
Notified by staff, pts sister are in the room. To room and sisters are stating concern they do not want pt to go [facility]. Updated this is the only SNF in the area that has a bed open at this time.They want to know if pt can just stay in the hospital until the when there is a bed open at [facility]. Updated, I have not had acceptance from [facility] at this time. Discussed Medicare will not pay for a patient to stay at the hospital once a room in a SNF is open. If a room opens they can accept or decline. Sisters do not feel they can drive to [facility] to visit pt. Encouraged them to wait until I hear from [facility].
--- NOTE | 2022-03-07 12:29 | NUR ---
Patient repositioned at this time, pillows in use for pressure relief. Agueda care provided, rodríguez patent with clear yellow urine draining. Patient awake, in pleasant mood conversing with staff. No further needs.
--- NOTE | 2022-03-07 14:09 | NUR ---
Patient incontinent of stool x1 large soft brown stool. Patient cleaned, lexi care done, new dry brief placed. Patient repositioned to her back at this time. No needs per pt. Personal supplies and call light within reach.
--- NOTE | 2022-03-07 16:10 | NUR ---
Spoke with Jose David from [facility] about another pt and he let me know he may have two beds open on Thursday. Let him know Violet is in need of a bed and she has been there 2-3 times in the past. He requests I send her chart. Faxed face sheet, H&P, progress notes, PT notes, med list.
--- NOTE | 2022-03-07 19:43 | NUR ---
REPORT RECEIVED ON PT. SHE SLEPT THROUGH REPORT. FANY IS PATENT. IV FLUSHED. DINNER IS AT THE BEDSIDE ANDD WILL ASSIT PT WITH THAT IF SHE WISHES. CALLL LIGHT IN REACH.
--- NOTE | 2022-03-07 22:36 | NUR ---
PT HAD A MODERATE BROWN SOFT BM.SHE DID NOT HAVE AN ATTENDS IN PLACE. PT WAS CLEANED AND BARRIER CREAM WAS APPLIED TO HER PERIAREA. SHE AWAKENED BRIEFLY FOR VS AND MEDS. PT DID NOT EAT HER DINNER TRAY, SHE WAS TOO SLEEPY. IV WAS FLUSHED.
--- NOTE | 2022-03-08 00:28 | NUR ---
PT WAS TURNED FROM HER LEFT TO HER RIGHT SIDE WITH PILLOW SUPPORT. PT TOLERATED THIS WELL..BED IS IN LOW POSITION. CALL LIGHT IN REACH.
--- NOTE | 2022-03-08 02:15 | NUR ---
PT WAS TURNED AND BRIEF WAS CHANGED AFTER SOARES LEAKED SMALL AMOUNT OF URINE. BRRIER CREAM WAS APPLIED TO PT'S PERIAREA. PT WAS THEN BOOSTED UP IN BED.
--- NOTE | 2022-03-08 02:47 | NUR ---
ATTEPMTED TO GIVE 0200 SINEMET. 3 TIMES PT SPIT THE PILL OUT. WASTED THE PILL.
--- NOTE | 2022-03-08 04:08 | NUR ---
PT IS TURNED ONTO HER LEFT SIDE WITH PILOW SUPPORT. SHE AWAKENED BRIEFLY FOR VS.
--- NOTE | 2022-03-08 04:17 | NUR ---
PT HAS BEEN TURNED EVERY 2 HOURS . SHE HAS HAD PILLOW SUPPORT . PT DID HAVE A BM . SKIN IN PERIAREA WAS REDDENED. BARRIER CREAM WAS APPLIED TO CLEAN SKIN, AND REDNESS HAS IMPROVED.PT DID NOT TAKE HER 2 AM SINEMET. SHE TOOK WATER BUT SPIT OUT HER PILL 3 TIMES. PT'S SOARES HAS LEAKED TWICE. PT DID NOT EAT HER DINNER. SLEPT THROUGH THE NIGHT. VSS , AFEBRILE.
--- NOTE | 2022-03-08 06:45 | NUR ---
IN TO HELP RN REPOSITION PT, SIPS OF WATER PROVIDED, RN PROVIDED MED, NO FURTHER NEEDS AT THIS TIME
--- NOTE | 2022-03-08 06:52 | NUR ---
PT WAS AWAKENED AND SHE WAS TURNED ONTO HER RIGHT SIDE WITH PILLOW SUPPPORT. HER BRIEF WAS DRY. PT TOOK HER SINEMET THIS AM.
--- NOTE | 2022-03-08 07:20 | NUR ---
Bedside report received from SABRINA RN. Pt is asleep in bed, supine. All wounds/dressings inspected. Servin in. B/L heel protectors.
--- NOTE | 2022-03-08 08:48 | NUR ---
patient is still in the bed resting. Call light within reach.
--- NOTE | 2022-03-08 09:00 | NUR ---
Pt is a feeder. She was able to eat 100% of her breakfast. She was able to hold onto small cup and drink from it. Overall PO fluid intake was 240 ml for breakfast.
--- NOTE | 2022-03-08 11:02 | NUR ---
Pt is resting in bed, supine. B/L heel protectors. Malathi BALDERAS in place. Pt was given some water and grape juice. Pt did say "That's enough" after few sips.
--- NOTE | 2022-03-08 12:45 | NUR ---
Servin d/c'd per Dr López's order. Pt ate 25% of lunch, drank 60 ml of apple juice. Agueda care performed as Pt was incontinent of BM (medium, loose). Barrier cream aplied to decrease the redness. Pt fell asleep afterwards.
--- NOTE | 2022-03-08 13:45 | NUR ---
PT attempted to work with Pt, but she would not wake up enough to follow PT's directions. PT session deferred till tomorrow.
--- NOTE | 2022-03-08 16:52 | NUR ---
Dulcolax tab held since Pt had loose BM this afternoon.
--- NOTE | 2022-03-08 17:30 | NUR ---
All Pt's dressings were changed per order. Pt did not want to eat any dinner. Repositioned in bed.
--- NOTE | 2022-03-08 19:56 | NUR ---
BEDSIDE REPORT FROM CHET BKAER RN, PT HAS BEEN REFUSING EFFORTS OF STAFF TO INCREASE PO FLUID INTAKE. SHE HAS INTERMITTENLY BEEN UNCOOPERATIVE WITH CARE. HER SOARES CATH IS OUT AND SHE HAS BEEN INCONT OF SMALL AMOUNTS OF URINE, DR. SHARMA AWARE OF LOW URINE OUT.
--- NOTE | 2022-03-08 20:37 | NUR ---
PT USED CALL LIGHT, REQUESTED THE HEEL PROTECTORS BE "LOOSENED", WELL DRANK SEVERAL DRINKS OF APPLEJUICE. NO OTHER NEEDS
--- NOTE | 2022-03-08 21:10 | NUR ---
PT USED CALL LIGHT, REQUESTED AND RECEIVED A WARM WASH CLOTH. VS DONE, SET UP ORAL CARE FOR PT, AND SHE BRUSHED HER TEETH, ABLE TO GARGLE AND SPIT IN CUP AFTER BRUSHING TEETH. FRESH SHEET GIVEN, SEVERAL DRINKS OF APPLE JUICE ACCEPTED. PT REQUESTED SOMEONE CHECK ON HER
--- NOTE | 2022-03-08 22:02 | NUR ---
PT SITTING UP IN BED ALERT/CONFUSED, ANXIOUS AT TIME THERAPUTIC COMMUNICATION AND ASSURE SAFETY FREQUENTLY TO ASSIST WITH PT ANXIETY. SHE COMMUNICATES CLEAR WORDS, ALTHOUGH UNABLE TO FOLLOW A CONVERSATION. PT DOES NOT REPORT ANY PAIN, SHE IS ENJOYING HER APPLE JUICE, SHE TOOK HER HS MEDS WITHOUT ISSUE. NO NEW CONCERNS AT THIS TIME.
--- NOTE | 2022-03-09 | NUR ---
pt resting quielty in bed no distress noted, pt breathing regular 17bpm.
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
--- NOTE | 2022-03-09 04:24 | NUR ---
PT HAS BEEN AWAKE MOST OF THE SHIFT, SHE HAS NOT REPORTED ANY PAIN, HAS BEEN RELAXED IN BED. SHE HAS VERBALIZED CONCERN FOR HER SAFETY AND NOT TRUSTING STAFF TO TELL THE TRUTH, THERAPUTIC COMMUNICATION, REORIENT ANS ASSURE SAFETY. PT HAS HAD COPIOUS AMOUNTS OF URINE OUT THIS SECOND HALF OF SHIFT. NO NEW CONCERNS THIS SHIFT.
--- NOTE | 2022-03-09 07:30 | NUR ---
THIS RN RECEIVED SHIFT REPORT FROM ELSY LIGHT. PATIENT WATCHING TV IN BED AT THIS TIME. PATIENT HAS NO CURRENT CARE NEEDS. CALL LIGHT IS IN REACH AND BED ALARM IS ON.
--- NOTE | 2022-03-09 07:59 | NUR ---
patient sitting up in the bed eating breakfast with out help. patient washed face with warm washcloth and asked for help to wash armpits. call light with in reach. no further needs at this time.
--- NOTE | 2022-03-09 10:38 | NUR ---
THIS RN AND JEWEL GEORGE IN AND CHANGED PATIENT FOR A VERY LARGE INCONTINENCE OF URINE, NO STOOL. WE CAM IN THE ROOM ABOUT 10 AM. AFTER PATIENT CHANGED CHARLIE USED TO LIFT PATIENT FROM BED INTO THE BEDSIDE ARMCHAIR, LEGS ELEVATED, CHAIR ALARM IS ON, LEFT ARM ELEVATED ON PILLOW. PATIENT'S SISTER IS HERE AND IN THE ROOM NOW SITTING BY THE PATIENT VISITING. PATIENT AM MEDS GIVEN AND AM ASSESSMENT COMPLETE. CALL LIGHT IS IN REACH FOR THE PATIENT.
--- NOTE | 2022-03-09 11:41 | NUR ---
PATIENT CONTINUES TO SIT UP IN THE BEDSIDE ARMCHAIR AND SISTER REMAINS SEATED AT HER SIDE VISITING. NO CARE NEEDS NOTED AT THIS TIME. CALL LIGHT IS IN REACH.
--- NOTE | 2022-03-09 12:56 | NUR ---
PT IN WORKING WITH PATIENT AT THIS TIME. PATIENT HAS NO NURSING CARE NEEDS AT THIS TIME. CALL LIGHT IN REACH.
--- NOTE | 2022-03-09 14:25 | NUR ---
THIS RN CLEANED PATIENT'S WOUND TO HER LEFT CHECK AND CHIN WITH WOUND CLEANSER AND APPLIED SILVADINE CREAM TO BOTH AREAS. LEFT HAND WOUNDS ALSO CLEANED WITH WOUND CLEANSER, ADAPTIC WITH MEDIHONEY APPLIED TO WOUNDS, ABD PLACED, THEN WRAPPED IN KERLIX AND COBAN. PATIENT TOLERATED THIS WELL. PATIENT'S ATTENDS PERIPAD CHANGED FOR INCONTINENCE, AND PATIENT FEET RE-ELEVATED IN THE BEDSIDE ARMCHAIR. CALL LIGHT IN REACH AND CHAIR ALARM IS ON. PATIENT HAS NO OTHER CARE NEEDS AT THIS TIME.
--- NOTE | 2022-03-09 17:15 | NUR ---
CHANGE DIRECTOR IN WITH PATIENT AND ASSISTING HER IN SETTING UP HER FOOD TO EAT. PATIENT HAS NO CARE NEEDS FROM THIS RN AT THIS TIME. CALL LIGHT IN REACH.
--- NOTE | 2022-03-09 17:45 | NUR ---
THIS RN AND ALEX, PUMP STATION OPERATOR USED HOYEER TO GET PATIENT BACK TO BED AND ATTENDS CHANGED WITH MEDIUM INCONTINENCE. PATIENT IN SEI-FOWLERS POSITION, CALL LIGHT IN REACH, AND PATIENT HAS NO OTHER CARE NEEDS AT THIS TIME. ALL DRESSINGS REMAIN DRY AND INTACT.
--- NOTE | 2022-03-09 19:00 | NUR ---
REPORT RECEIVED FROM ELSY DENNEY. pt RESTING IN BED AWAKE. DENIES NEEDS. CALL LIGHT IN RIGHT HAND. CURTAIN OPEN FOR CLOSE VIEW FROM NURSES STATION.
--- NOTE | 2022-03-09 20:20 | NUR ---
ASSISTED PRIMARY ELSY WASHINGTON. CHANGED INCONTINENT ATTENDS. PATIENT REPOSITIONED.
--- NOTE | 2022-03-09 20:39 | NUR ---
pt AWAKENS WHEN RN IN ROOM. COMMUNICATING WITH pt WITH WRITTEN WORD. pt ORIENTED TO SELF, ONLY. ANSWERS QUESTIONS INAPPROPRIATELY. ASKED THE YEAR "I THINK SHE WAS BORN IN 59". VSS. pt ABLE TO LIFT BOTH UPPER EXTREMITIES OFF BED. ABLE TO MOVE LEGS, VERY WEAK, STIFF. ASSESSMENT COMPLETE. IV SITE IN RIGHT WRIST INFILTRATED, RED, D/C'D WNL. pt DENIES PAIN. INCONTINENT OF URINE. ATTENDS AND TONG PAD CHANGED. pt REPOSITIONED IN BED, PILLOWS UNDER HIPS AND LEGS, HEEL PROTECTORS ON. DRESSINGS CDI. PO MEDICATIONS WITH APPLESAUCE. DRINK OF WATER OFFERED. CALL LIGHT IN RIGHT HAND.
--- NOTE | 2022-03-09 23:31 | NUR ---
ASSISTED ELSY WASHINGTON. CHANGED PATIENT'S INCONTINENT URINE AND PLACED FRESH ATTEND. PUREWICK PLACED. PATIENT REPOSITIONED.
--- NOTE | 2022-03-09 23:31 | NUR ---
IN ROOM TO REPOSITION pt. pt AWAKE STATES "ITS SO SCARY HERE AT NIGHT, ALL THE ANIMALS." REORIENTATION WITH WRITTEN COMMUNICATION PROVIDED. pt INCONTINENT OF URINE AND STOOL. ATTENDS CHANGED. PUREWICK PLACED. REPOSITIONED WITH PILLOW UNDER LEFT HIP. LEGS ELEVATED. HEEL PROTECTORS ON. CALL LIGHT IN REACH. BED IN LOW POSITION.
--- NOTE | 2022-03-10 02:20 | NUR ---
pt AWAKE RESTING IN BED. PO MEDICATION ADMINISTERED WITH APPLESAUCE. ATTENDS CHECKED, INCONTINENCE OF STOOL AND URINE, PUREWICK WITH MINIMAL OUTPUT. pt STATES NOT DONE YET WITH BM. ALLEVYN ON RIGHT KNEE REMOVED BY pt. pt SCRATCHING AT WOUNDS, DRY SKIN ON LEGS. ENCOURAGED NOT TO PICK/SCRATCH. ALLEVYN REPLACED PER WOUND CARE ODERS. pt HAS CALL LIGHT IN REACH.
--- NOTE | 2022-03-10 03:00 | NUR ---
ATTENDS CHANGED. INCONTINENT OF SOFT STOOL AND URINE. pt REPOSITIONED HIGHER IN BED. PILLOWS UNDER HIPS BILATERALLY AND LEGS ELEVATED. ASSESSMENT COMPLETE. HEEL PROTECTORS ON. CALL LIGHT IN REACH. LIGHTS OFF IN ROOM.
--- NOTE | 2022-03-10 06:28 | NUR ---
pt INCONTINENT OF URINE AND STOOL. ATTENDS, CHUX CHANGED. REPOSITIONED TO BACK LYING POSITION. HEEL PROTECTORS ON. LEFT ARM ELEVATED ON PILLOW. DRESSINGS CDI. PO MEDICATION ADMINISTERED WITH APPLESAUCE. CALL LIGHT IN REACH.
--- NOTE | 2022-03-10 07:09 | NUR ---
REPORT FROM PADMINI REED RN.
--- NOTE | 2022-03-10 07:39 | NUR ---
MORNING ASSESSMENT DONE, PATIENT REPOSITIONED TO BACK IN BED, HEEL PROTECTORS ARE OFF AT THIS TIME AND LEGS ARE ELEVATED ON PILLOWS. PATIENT DENIES PAIN OR NAUSEA. PATIENT IS ABLE TO ORIENT TO SELF AND LOCATION, IS VERY PARANOID ABOUT "PEOPLE ATTACKING ME," AND THIS IS SEEN HER BASELINE MENTATION. LUNGS ARE CLEAR, PATIENT IS ON ROOM AIR, NO IV NOTED. PATIENT MADE AWARE THAT BREAKFAST WOULD BE ARRIVING SOON AND WE WILL SIT HER UP. SKIN IS DRY AND FLAKY, PATIENT IS PICKING AT SEVERAL AREAS, UNABLE TO REDIRECT THIS BEHAVIOR. WOUND DRESSINGS WILL BE CHANGED LATER TODAY.
--- NOTE | 2022-03-10 10:24 | NUR ---
PATIENT GIVEN 1100 MEDICATIONS, NO OTHER NEEDS NOTED AT THIS TIME. PATIENT WAS ABLE TO ENDORSE THAT SHE HAD A BATH TODAY.
--- NOTE | 2022-03-10 10:32 | NUR ---
VISITED PT TODAY, LAYING IN BED ON R SIDE. DIFFICULT TO GET RESPONSE FROM PT. KNITTER OPERATOR TIA IN RM TO CARE FOR PT. WILL FOLLOW
--- NOTE | 2022-03-10 11:07 | NUR ---
THIS CNA2 PERFOMED A FULL BEDBATH W/SHAMPOO, ORAL CARE, TONG PAD CHANGED, TONG CARE, SKIN MOISTURIZER AND REPOSITIONED W/PARTIAL LINEN CHANGE. PT RESTING COMFORTABLY W/CALL LIGHT IN REACH. NO OTHER REQUESTS AT THIS TIME.
--- NOTE | 2022-03-10 11:45 | NUR ---
Spoke with pt and she initially she responds appropriately. We discussed SNF and she states she will go. She then states she doesn't know what to wear at a [facility] and then states things are melting and need to be placed in an oven. I spoke with Jose David from [facility] and he states they may have a bed open on Thu or . Called Lanette at [facility]. They have not decided if they can take this pt or not. They need to know the vaccine status and pt is unable to state. She will have her DNS check through the state.
--- NOTE | 2022-03-10 13:55 | NUR ---
PATIENT IS SLEEPING WITH REGULAR RESPIRATIONS.
--- NOTE | 2022-03-10 16:13 | NUR ---
PATIENT GIVEN EVENING MEDICATIONS.
--- NOTE | 2022-03-10 16:21 | NUR ---
UPDATED CHART FAXED TO [facility] FOR POSSIBLE PLACEMENT.
--- NOTE | 2022-03-10 18:02 | NUR ---
PATIENT DENIED WANTING TO EAT DINNER, HAD A SIP OF WATER.
--- NOTE | 2022-03-10 19:34 | NUR ---
REPORT RECEIVED FROM ELSY LOFTON. pt RESTING IN BED, HOB ELEVATED. NO DISTRESS NOTED.
--- NOTE | 2022-03-10 20:44 | NUR ---
pt AWAKENS TO RN IN ROOM. VSS. ASSESSMENT COMPLETE. pt PAINFUL WITH MOVEMENT OF LEGS. PRN TYLENOL ADMINISTERED WITH PO MEDICATIONS IN APPLESAUCE. ATTENDS DRY. REPOSITIONED WITH PILLOW UNDER LEFT HIP AND LEGS. DRINK OF WATER OFFERED, pt REFUSES. CALL LIGHT IN REACH.
--- NOTE | 2022-03-10 23:49 | NUR ---
2 pa. changed incontinent urine attends.
--- NOTE | 2022-03-10 23:54 | NUR ---
pt SLEEPING, AWAKENS TO CNAS IN ROOM. INCONTINENT OF URINE. ATTENDS CHANGED. CURTAIN OPEN FOR VIEW FROM NURSES STATION.
--- NOTE | 2022-03-11 02:17 | NUR ---
pt RESTING IN BED AWAKE WHEN RN ENTERS ROOM FOR MEDICATION ADMINSITRATION. PO MEDICATION ADMINISTERED WITH APPLESAUCE. pt FINISHES CUP OF APPLESAUCE. INCONTINENT OF URINE, SMEAR OF STOOL. ATTENDS CHANGED. pt REPOSITIONED TO FLOATING WITH PILLOWS UNDER EACH HIP. LEGS ELEVATED, pt REFUSING HEEL PROTECTORS AT THIS TIME, "THOSE TIE ME DOWN". pt STATES "I'M STILL IN THE HOSPITAL". ASSESSMENT COMPLETE. CALL LIGHT IN REACH. CURTAINS OPEN FOR VIEW FROM NURSES STATION.
--- NOTE | 2022-03-11 04:00 | NUR ---
pt RESTING IN BED. EYES CLOSED. NO DISTRESS NOTED.
--- NOTE | 2022-03-11 06:25 | NUR ---
pt AWAKE, COOPERATIVE WITH CARES. VSS. INCONTINENT OF LARGE VOID. GOWN, CHUX, ATTENDS CHANGED. pt REPOSITIONED WITH PILLOW UNDER RIGHT HIP, UNDER LEGS. HOB ELEVATED. PO MEDICATIONS ADMINISTERED WITH APPLESAUCE. TV REMOTE PROVIDED REQUESTED. CALL LIGHT IN REACH. NO ADDITIONAL REQUESTS.
--- NOTE | 2022-03-11 07:23 | NUR ---
REPORT RECIEVED FROM MARINE DIESEL TECHNICIAN RN.
--- NOTE | 2022-03-11 07:54 | NUR ---
MORNING ASSESSMENT IS COMPLETE. PATIENT IS SITTING UP IN BED AND READY FOR BREAKFAST. PATIENT CONTINUES TO PICK AT SKIN, UNABLE TO REDIRECT THIS BEHAVIOR. PATIENT REMAINS CONFUSED. DRESSINGS INTACT TO BILATERAL KNEES, LEFT TOE, AND LEFT WRIST. PATIENT DENIES PAIN AND NAUSEA. NO OTHER NEEDS NOTED AT THIS TIME.
--- NOTE | 2022-03-11 08:33 | NUR ---
Received text from TAWANDA at [facility]. He states Rn has reviewed the chart. They would like further info. about pts wounds. Last photos are a week old. Spoke with charge nurse. Wound nurse will be here tomorrow and will complete assessment and photos. Updated TAWANDA. Bed will be open hopefully on Thursday, pt has not been accepted at this point.
--- NOTE | 2022-03-11 09:25 | NUR ---
BILATERAL KNEE DRESSINGS CHANGED. KNEE WOUNDS CLEANED WITH WOUND CLEANSER, MEDIHONEY APPLIED AND COVERED WITH ALLEVYN. LEFT WRIST WOUNDS CLEANED, ADAPTIC, GUAZE AND COBAN TO COVER. PATIENT TOLERATED DRESSING CHANGES WELL. INCONTINENCE PAD CHANGED, PATIENT REPOSITIONED.
--- NOTE | 2022-03-11 11:15 | NUR ---
KNEE WOUND PICTURES IN CHART.
--- NOTE | 2022-03-11 11:51 | NUR ---
ADMINISTERED SCHEDULED MED. ASSISTED PT TO CHANGE CHANNEL. CALL LIGHT IN REACH.
--- NOTE | 2022-03-11 14:30 | NUR ---
PATIENT AWAKE IN BED. VITALS AND I&OS CHARTED. PATIENT WAS INCONTINENT OF URINE, BEDBATH PROVIDED. NEW GOWN, BRIEF AND LINENS. PATIENT ROLLED FROM SIDE TO SIDE VERY WELL, BUT HAD A GREAT FEAR OF FALLING. PATIENT REPOSITIONED ONTO HER LEFT SIDE. CALL LIGHT AND WATER IN EASY REACH.
--- NOTE | 2022-03-11 14:48 | NUR ---
PHYSICAL THERAPY IN TO WORK WITH PATIENT.
--- NOTE | 2022-03-11 15:11 | NUR ---
Updated pt's sister Camila. I am hoping for a bed at [facility] on Thursday as family would prefer pt not go out of town. I have not received a Yes or NO from [facility] at this time. Per our conversation yesterday, they will let me know this week. At this time, it remains with no beds available in 60 mile radius in any of the SNFS..
--- NOTE | 2022-03-11 16:00 | NUR ---
RECD. REPORT FROM KIRSTY CHIN, ASSUMED CARE OF PT.
--- NOTE | 2022-03-11 19:06 | NUR ---
THIS CNA2 PERFORMED PARTIAL BED BATH ON PT. WASHING TOP PART OF BODY WELL TONG CARE PERFORMED. BREIF(PAD) CHANGED. GOWN CHANGED. DEODRANT APPLIED. PARTIAL LINEN CHANGED. PT TURNED TO L SIDE W/ PILLOWS. HEELS FLOATING. PT RESTING PEACFULLY AT THIS TIME. CALL LIGHT IS IN REACH.
--- NOTE | 2022-03-11 19:23 | NUR ---
REPORT RECEIVED FROM ELSY PEREZ. pt RESTING IN BED. pt CONFUSED STATES "I NEED A BED UNDER ME, I'M GOING TO FALL THROUGH". REORIENTATION PROVIDED. CALL LIGHT IN REACH.
--- NOTE | 2022-03-11 21:40 | NUR ---
pt AWAKE RESTING IN BED. ASSESSMENT COMPLETE. pt CONFUSED. REORIENTATION TO ALL PROVIDED, WRITTEN COMMUNICATION WITH pt. MASHPEE. pt INCONTINENT OF URINE. ATTENDS, CHUX CHANGED. pt REPOSITIONED TO FLOATING, PILLOWS UNDER HIPS, LEGS ELEVATED ON PILLOWS. PO MEDICATIONS ADMINISTERED WITH APPLESAUCE. DRINK OF WATER OFFERED, pt REFUSES.
--- NOTE | 2022-03-11 23:49 | NUR ---
CHECKED ON pt. pt RESTING IN BED AWAKE. DRINK OF WATER PROVIDED. TV OFF PER REQUEST. NO ADDITIONAL REQUESTS. CALL LIGHT IN REACH.
--- NOTE | 2022-03-12 02:19 | NUR ---
pt AWAKE RESTING IN BED. ATTENDS, TONG PAD SATURATED WITH LARGE VOID. ATTENDS CHANGE. BARRIER CREAM APPLIED TO BUTT, REDDENED. pt BOOSTED IN BED, 2PA LEGS ELEVATED ON PILLOWS, PILLOW UNDER RIGHT HIP. ASSESSMENT COMPLETE. WARM BLANKET PROVIDED. pt REORIENTED TO TIME OF DAY, ENCOURAGED TO TRY TO SLEEP.
--- NOTE | 2022-03-12 02:23 | NUR ---
BACK IN pt ROOM. HOB RAISED FURTHER pt REQUESTED. CONTINUES TO ASK "WHAT IF I HAVE TO POOP?" pt NOT SURE IF SHE NEEDS TO HAVE BM AT THIS TIME. CALL LIGHT IN REACH. CURTAIN OPEN FOR CLOSE VIEW FROM NURSES STATION.
--- NOTE | 2022-03-12 04:05 | NUR ---
pt AWAKE RESTING IN BED. INCONTINENT OF STOOL AND URINE, MEDIUM FORMED SOFT STOOL. ATTENDS CHANGED. pt REPOSITIONED WITH PILLOW UNDER RIGHT HIP. LEGS ELEVATED ON PILLOWS. HOB ELEVATED. CALL LIGHT IN REACH.
--- NOTE | 2022-03-12 06:19 | NUR ---
pt AWAKE WHEN RN ENTERS ROOM. VSS. INCONTINENT OF URINE, ATTENDS CHANGED. pt REPOSITIONED WITH PILLOW UNDER LEFT HIP. LEGS ELEVATED. PO MEDICATION ADMINISTERED IN APPLE SAUCE. pt ASSISTED TO CLEAN FACE REQUESTED. pt QUESTIONS "IF I GET ACCEPTED AT [facility] HOW WILL I KNOW HOW I GET THERE. WILL THE AMBULANCE CALL ME?" pt INFORMED CASE MANAGEMENT WILL ASSIST WITH TRANSPORTATION ARRANGEMENTS AND WILL BE IN TO DISCUSS. WRITTEN COMMUNICATION UTILIZED. CALL LIGHT IN REACH.
--- NOTE | 2022-03-12 07:28 | NUR ---
Bedside report received from SABRINA RN. Pt is awake, lying in bed in semi-martinez position. She asked to hand her eyeglasses. She's much improved since the weekend. No other concerns/request at this time.
--- NOTE | 2022-03-12 08:15 | NUR ---
Pt transferred to the recliner for breakfast. Mary Beth lift. Pt was very aprehensive and said it'd hurt her lower back. After the transfer she was happy to get out of bed.
--- NOTE | 2022-03-12 08:30 | NUR ---
PATIENT HOYERED TO CHAIR FOR [facility]. PATIENT WAS INCONTINENT OF BM AND URINE. LINEN CHANGED, FACE AND HANDS WASHED, CALL LIGHT IN EASY REACH.
--- NOTE | 2022-03-12 09:30 | NUR ---
WOUND CARE NURSE FROM [facility] TO SEE PATIENT AND UPDATE ORDERS THIS AFTERNOON. TALKED TO ELSY ALTMAN, [facility].
--- NOTE | 2022-03-12 09:37 | NUR ---
VITALS AND I&OS CHARTED. BOTTLE OF LOTION PROVIDED FOR LOTION PER REQUEST. LEGS ELEVATED AND CALL LIGHT IN EASY REACH
--- NOTE | 2022-03-12 09:51 | NUR ---
Pt is sitting in the recliner. BP is 87/39 (HR=77). Previous BP was 153/63 (HR=74) at 6 am - Pt was lying flat in bed. Dr Chou made aware and advised to recheck it in a little bit. Pt did get diuretics this morning.
--- NOTE | 2022-03-12 11:10 | NUR ---
Pt's BP improved. 100/52 HR=75. Pt was encouraged to drink more water.
--- NOTE | 2022-03-12 13:15 | NUR ---
Pt is resting/sleeping in bed. She's turned on L side with high pressure area floated on pillows. Bed alarm on. RA.
--- NOTE | 2022-03-12 14:00 | NUR ---
senior windows administrator in. She revisited orders and redressed Pt's wounds.
--- NOTE | 2022-03-12 14:00 | NUR ---
Notified by TAWANDA at [facility], they will accept this pt on Thursday. Wound care here and completed new orders after measuring and photographing wounds. Wounds emailed securely for RN to review.
[2022-03-12] MEDS ORDERED: CARBIDOPA-LEVO1 EAC1 PO (14:36)
[2022-03-12] MEDS ORDERED: ACETAMINOPHEN500 MG PO (14:36)
[2022-03-12] MEDS ORDERED: BISACODYL5 MG PO (14:36)
[2022-03-12] MEDS ORDERED: DONEPEZIL HCL10 MG PO (14:36)
--- NOTE | 2022-03-12 14:36 | NUR ---
PATIENT REPOSITIONED FOR WOUND CARE ON KNEES. LEGS AND ARMS LOTIONED, VITALS AND I&OS CHARTED. PATIENTWAS INCONTINENT OF URING, TONG PAD REPLACED. PATIENT RESTING IN BED AT THIS TIME. CALL LIGHT IN HAND.
--- NOTE | 2022-03-12 16:00 | NUR ---
Pt was repositioned on her R side for pressure relief. Diaper checked and was CDI.
--- NOTE | 2022-03-12 17:57 | NUR ---
Pt needed to be woken up for dinner. Once she was awake she started feeding herself. Dulcolax tab held as Pt had loose stool this morning.
--- NOTE | 2022-03-12 18:15 | NUR ---
PT FINISHED WITH DINNER. VITALS SIGNS STABLE. DEPENDS WET. TONG CARE DONE. DEPENDS DONE. BARRIER CREAM APPLIED. PT REPOSITIONED TO LEFT SIDE, SUPPORTED WITH PILLOWS. NO ADDITONAL NEEDS AT [facility]. BED RAILS UP. BED ALARM ON. HEAD OF BED ELEVATED TO 32 DEGREES. PT RESTING WITH EYES CLOSED. RESPIRATIONS EVEN AND UNLABORED.
--- NOTE | 2022-03-12 19:34 | NUR ---
REPORT RECEIVED ON PT. SHE APPEARS TO BE ASLEEP SHE IS BREATHING DEEPLY AND DID NOT AWAKEN DURING REPORT.
--- NOTE | 2022-03-12 19:56 | NUR ---
IN WITH RN TO TURN PT ONTO HER BACK, PILLOW UNDER LEGS, ATTENDS AT DRY AT THIS TIME
--- NOTE | 2022-03-12 19:57 | NUR ---
PT TURNED ONTO HER BACK BY 2 STAFF. PILLOWS PLACED TO SUPPORT PT. SHE AWAKENED AND SMILED BRIEFLY. PT'S BRIEF WAS DRY.
--- NOTE | 2022-03-12 22:15 | NUR ---
IN TO CHECK PT FOR INCONT, VOID AND BM, CLEANED UP, TURNNED TO THE LEFT, (PILLOW UNDER RIGHT), BED ALARM SET
--- NOTE | 2022-03-13 00:30 | NUR ---
PT REPOSTITIONED AND CLEANED UP, NO FURTHER NEEDS AT THIS TIME
--- NOTE | 2022-03-13 00:47 | NUR ---
PT WAS INCONTINENT OFO STOOL AND URINE. SHE HAD A LARGE AMOUNT OF URINE AND A SMALL SOFT BROWN BM. PT WAS CLEANED AND ATTENDS AND CHUX CHANGED.TURNED TO LEFT TILT WITH PILLOW SUPPORT.
--- NOTE | 2022-03-13 04:47 | NUR ---
PT IS INCONTINENT OF URINE. SHE WAS CLEANED, CHANGED AND TURNED. HER LEFT GREAT TOE WAS REDRESSED WITH GAUZE. PT WAS OFFERED AND GIVEN SIPS OF WATER.CALL LIGHT IN REACH.
--- NOTE | 2022-03-13 06:14 | NUR ---
PT HAS BEEN TURNED Q2 HOURS. SHE AHS BEEN ABLE TO HELP TURN BY GRABBING THE SIDE RAILS, WITH A LITTLE ASSIST. SHE HAS BEEN COOPERATIVE WITH HER CARES AND TAKING HER MEDS. HER SKIN IS IMPROVING. NO REDNESS IN PERIAREA OR BOTTOM. VSS. AFEBRILE. PT IS MAINTAINED ON ROOM AIR. DENIES PAIN AT REST, SOME DISCOMFORT WITH TURNING BUT THAT SUBSIDES .
--- NOTE | 2022-03-13 07:50 | NUR ---
REPORT RECEIVED FROM NIGHT RN - PT AWAKE AND ALERT IN BED , CONVERSATION APPROPRIATE. CALL LIGHT IN REACH.
--- NOTE | 2022-03-13 09:30 | NUR ---
Spoke with Rosemarie at [facility]. She was notified by Robert they will assess this pt at 0900 and feel this pt will qualify for [facility]. She asked I schedule transport for 12:30. We discussed when her belongings could be moved in and I gave her Kaelyn's phone number for arrangements. [facility] will provide a twin bed for the pt until arrangement can be made. Called and spoke with Genaro at [facility] and transport scheduled for 12:30 tomorrow.
--- NOTE | 2022-03-13 09:49 | NUR ---
RN IN ROOM TO ADMINISTER SCHEDULED MEDICATIONS AND ASSESS PT - PT UP TO CHAIR UPON ENTRY WATCHING TV. PT PLESANT THIS MORNING - COMPLIANT WITH CARE. SWALLOWED MEDICATIONS WIHTOUT DIFFICULTY, PUTTING THEM IN HER MOUTH BY SELF. PRN TYLENOL ADMINISTERED FOR R HIP PAIN. PT STATES IT HURTS WHEN USING CHARILE. COMFORTABLE IN CHAIR AT THIS TIME. LEGS ELEVATED. CALL LIGHT IN LAP. FRESH WATER SUPPLIED.
--- NOTE | 2022-03-13 10:45 | NUR ---
Was able to contact pts sisterCamila today. Pt will go to [facility] tomorrow per [facility]. Van has been scheduled for transport at 1430 and they will use our wc and return it after transport. Sister is very happy with news. Orders printed and given to Dr. Chou. Packet ready in my office, will need dc summary, covid test, and emar added to packet.
--- NOTE | 2022-03-13 10:50 | NUR ---
RN ROUNDING ON PT - SITTING UP IN CHAIR WATCHING TV AND FIDDLING WITH HER GOWN. CALL LIGHT IN LAP.
--- NOTE | 2022-03-13 11:13 | NUR ---
RN IN ROOM TO ADMINISTER 1100 MED. PT ASLEEP IN CHAIR UPON ENTRY. PT RECOGNIZED HER MEDCIATION IN MED CUP AND VERBALIZED SHE TOOK IT FOR [facility]. STATES SHE IS COMFORTABLE IN CHAIR. CALL LIGHT IN LAP.
--- NOTE | 2022-03-13 12:10 | NUR ---
RN ROUNDING ON PT - SITTING UP IN CHAIR EATING LUNCH, FEEDING SELF.
--- NOTE | 2022-03-13 12:45 | NUR ---
RT COLLECTED RAPID COVID 19, RSV, AND FLU SWAB PER DR REQUEST USING IN HOUSE LAB WITH NO COMPLICATIONS AT THIS TIME.
--- NOTE | 2022-03-13 14:53 | NUR ---
RN ROUNDING ON PT - ASLEEP IN BED ON SIDE WITH RR EVEN AND UNLABORED. CALL LIGHT IN REACH.
--- NOTE | 2022-03-13 16:58 | NUR ---
RN IN ROOM WITH ORDER DESK CALLER TO CHANGE ATTENDS AND REPOSITION. PT INC OF URINE IN ATTENDS. PT UP TO CHAIR TO EAT DINNER WITH CHARLIE LIFT. PT STATES SHE IS PT ABLE TO TAKE MEDS WITHOUT DIFFICULTY. CALL LIGHT IN LAP.
--- NOTE | 2022-03-13 17:40 | NUR ---
RN ROUNDING ON PT - REMAINS UP IN CHAIR, FEEDING SELF DINNER. PT VERBALIZED NEEDING HELP OPENING PUDDING, THANKED RN FOR "ALL YOUVE DONE TODAY". PT DENIES FURTHER NEEDS. CALL LIGHT IN LAP.
--- NOTE | 2022-03-13 20:40 | NUR ---
in to assist rn with cares, cleaned up and repositioned, pillows to the left, bed alarm is set, no further needs at this time
--- NOTE | 2022-03-13 23:50 | NUR ---
PT WAS INCONTINENT OFURINE. SHE WAS CLEANED, CHANGED AND TURNED. PT TOLERATED THIS WELL. BED IN LOW POSITION. CALLL LIGHT IN REACH.
--- NOTE | 2022-03-14 02:13 | NUR ---
PT WAS INCNTINENT OF URINE. SHE WAS CLEANED , CHEANGED AND PLACED IN A SUPINE POSITION. CALL LIGHT IN REACH. TOOK HER SINEMET. TOLERATED PROCEDURE WELL.
--- NOTE | 2022-03-14 05:30 | NUR ---
CALL LIGHT ANSWERED, pt REPORTS SHE "MADE A MESS". INCONTINENT OF BOTH BM AND URINE. TONG CARE DONE AND CLEAN ATTENDS IN PLACE, pt BOOSTED IN BED. BILATERAL HIPS FLOATED. VSS AND I&O'S COMPLETE, NO FURTHER NEEDS. CALL LIGHT IN REACH.
--- NOTE | 2022-03-14 06:27 | NUR ---
PT HAS BEEN TURNED, CCLEANED AND CHANGED Q 2 HRS THIS SHIFT. SHE HAS BEEN ABLE TO ASSIST BY REACHING FOR AND HOLDING THE SIDERAILS. SHE HAS BEEN ABLE TO TAKE HER FROM THE MED CUP AND HOLD HER WATER.PT HAS BEEN INCONTINENT OFF URINE AND STOOL THIS SHIFT.
--- NOTE | 2022-03-14 07:44 | NUR ---
DC SUMMARY AND MAR FAXED TO [facility] AT [facility].
--- NOTE | 2022-03-14 09:50 | NUR ---
[facility] [place] [facility] STATES THE PATIENT IS REQUESTING BLUE PANTS FOR DISCHARGE. WILL OBTAIN SCRUB SET FOR THIS AFTERNOO. PATIENT ASKING IF SHE WILL BE PICKED UP. I INFORMAED HER THAT SHE WILL BE TRANSPORTED BY [facility]. PATIENT IS AGREEABLE AND HAPPY ABOUT DISCHARGE.
--- NOTE | 2022-03-14 10:13 | NUR ---
RN IN ROOM TO ASSESS PT AND ADMINISTER SCHEDULED MEDS. PT EXCITED TO DISCHARGE TO [facility] TODAY - ANXIOUS TO GET CLOTHES BUT CM AWARE AND FINDING SOME. ASSESSMENT UNCHANGED. WOUND COVERINGS C/D/I. PT DENIES PAIN. UP IN CHAIR - ATE BREAKFAST FEEDING SELF.
--- NOTE | 2022-03-14 12:33 | NUR ---
PT INC OF LIQUD STOOL IN ATTENDS, PLACED ON BED FARMER.
== END 2022-03-14 14:01 | disposition home or self-care (01) | DRG 682 ==
LOC: ED 15:13 → CCU 18:20 → MS 02-27 20:10
PROVIDERS: ADMIT Internal Medicine; ATTEND Internal Medicine
DX: N17.9 Acute kidney failure, unspecified (principal); G93.41 Metabolic encephalopathy; E87.0 Hyperosmolality and hypernatremia; G20 Parkinson's disease; F02.80 Dementia in other diseases classified elsewhere, unspecified severity, without behavioral disturbance, psychotic disturbance, mood disturbance, and anxiety; T68.XXXA Hypothermia, initial encounter; E87.5 Hyperkalemia; T79.6XXA Traumatic ischemia of muscle, initial encounter; Z20.822 Contact with and (suspected) exposure to COVID-19; E86.0 Dehydration; Z98.890 Other specified postprocedural states; Z79.899 Other long term (current) drug therapy; W18.39XA Other fall on same level, initial encounter; Y92.000 Kitchen of unspecified non-institutional (private) residence as the place of occurrence of the external cause
CPT/HCPCS: 36415; 36600; 51702; 70450; 71045; 80048; 80053; 81001; 82553; 82803; 83605; 83735; 84100; 85025; 87040; 87502; 93005; 93010; 97110; 97163; 97530; 99285-25; A9270; C9113; C9803; J0295; J1650; J3010; J3480; J7042; J7060; J7070; J7121; U0003

== ENCOUNTER 2024-02-15 18:15 | Emergency (ER) | payer MEDICARE, OTHER ==
[~2024-02-15] VITALS: Ht 167.6 cm; Wt 75.0 kg
[~2024-02-15 18:15] MED LIST changes: +ACETAMINOPHEN500 MG PO; +BISACODYL5 MG PO
[2024-02-15 21:35] VITALS: BP 146/80
== END 2024-02-15 21:35 | disposition home or self-care (01) ==
LOC: ED 18:15
DX: T76.21XA Adult sexual abuse, suspected, initial encounter (principal)
CPT/HCPCS: 99284